=== PATIENT | female | born 1945 | race Caucasian/White ===

== ENCOUNTER 2017-01-12 13:51 | Inpatient (IN) | payer BC, OTHER ==
[~2017-01-12] VITALS: Ht 157.5 cm; Wt 41.0 kg
[~2017-01-12 13:51] MED LIST: ALBU1AER9 INH; CITA20TA9 PO; LBR25 PO; MULTTAB58 PO; OXGN; PRED-301 PO; PRED10TA PO; SYMIN160 INH; TIOTCAP INH; VTMD1000 PO; XRL15 PO
[2017-01-12 14:01] VITALS: Ht 157.5 cm; Wt 41.0 kg
[2017-01-12] MEDS ORDERED: SODIUM CHLORIDE 0.9% 1000ML 1,000 ML IV STA (14:18)
[2017-01-12 14:44] LABS: COMPLETE YES; EOS % 0.1 %; HEMATOCRIT 37.5 % (37-47); IG% 0.3 %; LYMPH % 4.1 %; LYMPH ABS # 0.45 K/uL (1.2-3.4); MEAN CELL VOLUME 97.7 fL (80-100); MEAN CORPUSCULAR HEMOGLOBIN 31.3 pg (25-34); NEUT % 92.5 %; PLATELET COUNT 238 K/uL (130-400); RED BLOOD COUNT 3.84 M/uL (4.2-5.4); WHITE BLOOD COUNT 10.92 K/uL (4.8-10.8)
[2017-01-12] MEDS ORDERED: VNTHFA/IN INH (14:49)
--- NOTE | 2017-01-12 14:49 | DIAGNOSTIC IMAGING REPORT ---
CHEST ONE VIEW PORTABLE HISTORY: 71 years-old Female EVALUATE GI BLEED acute GI bleed. COMPARISON: Chest radiograph 01/06/2017, chest CT 01/07/2017 TECHNIQUE: Portable upright AP view of the chest FINDINGS: Cardiac silhouette is within normal limits. There is mild rightward deviation of the heart and mediastinal structures secondary to severe left greater than right bullous emphysematous changes. Chronic interstitial opacities are again seen throughout the bilateral lungs, right greater than left. Lungs are hyperinflated. No pneumothorax or large pleural effusion. No lobar airspace consolidation to suggest pneumonia. The bones of the chest are grossly intact. IMPRESSION: 1. No acute cardiopulmonary process. 2. Severe bullous emphysematous disease with areas of chronic interstitial scarring redemonstrated. The above report was generated using voice recognition software. It may contain grammatical, syntax or spelling errors. Electronically signed by: Oleg Hahn M.D. 01/12/2017 2:48 PM Dictated Date/Time: 01/12/2017 2:45 PM
[2017-01-12 14:51] LABS: INR 1.1 (0.9-1.1); PARTIAL THROMBOPLASTIN RATIO 1.1
[2017-01-12] MEDS ORDERED: SPRIN/30 INH (14:51)
[2017-01-12 15:05] LABS: ALT/SGPT 45 U/L (12-78); BLOOD UREA NITROGEN 18 mg/dl (7-18); BUN/CREATININE RATIO 24.3 (10-20); CALCIUM 10.8 mg/dl (8.5-10.1); CARBON DIOXIDE 39 mmol/L (21-32); CHLORIDE 93 mmol/L (98-107); CREATININE 0.75 mg/dl (0.60-1.20); GLUCOSE 162 mg/dl (70-99); POTASSIUM 4.4 mmol/L (3.5-5.1); SODIUM 135 mmol/L (136-145)
[2017-01-12 15:10] LABS: ALKALINE PHOSPHATASE 98 U/L (45-117); AST/SGOT 23 U/L (15-37)
[2017-01-12] MEDS ORDERED: CHLORDIAZEPOXIDE 25 MG CAP PO ONE (16:00)
[2017-01-12 16:14] LABS: MANUAL MICROSCOPIC REQUIRED? YES; REVIEW REQ? NO; URINE APPEARANCE TURBID (CLEAR); URINE COLOR BROWN
[2017-01-12 16:15] LABS: SULFASALICYLIC ACID POS (NEG); URINE SPECIFIC GRAVITY 1.009 (1.000-1.030)
[2017-01-12 16:22] LABS: URINE RBC >30 /hpf (0-4); URINE WBC >30 /hpf (0-5)
[2017-01-12 16:30] LABS: URINE BACTERIA 3+ (NEG)
[2017-01-12] MEDS ORDERED: POLYETHYLENE (MIRALAX) 17 GM PACK PO PRN (18:00)
[2017-01-12] MEDS ORDERED: MAGNESIUM HYDROXIDE SUSP 30 ML UDC PO PRN (18:00)
[2017-01-12] MEDS ORDERED: ACETAMINOPHEN 325 MG TAB PO PRN (18:00)
[2017-01-12] MEDS ORDERED: ZOLPIDEM TARTRATE 5 MG TAB PO PRN ×2 (18:00)
[2017-01-12] MEDS ORDERED: ALBUTEROL HFA 8 GM INHALER INH PRN (18:00)
[2017-01-12] MEDS ORDERED: ALUMINUM/MAGNESIUM/SIMETH (MAALOX MAX) 30 ML UDC PO PRN (18:00)
[2017-01-12] MEDS ORDERED: ONDANSETRON INJ 2 MG/ML 2 ML VIAL IV PRN (18:00)
[2017-01-12 18:30] VITALS: O2SAT 97; BMI 16.5
--- NOTE | 2017-01-12 18:31 | EMERGENCY ROOM VISIT NOTE ---
History Report prepared by Noah: Del Ivey Under the Supervision of: Dr. Manolo Vernon D.O. 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 She says that she was here for 5 days last week for a COPD exacerbation and was discharged 2 days ago, and it was discovered that she had a blood clot in her lung while here. The patient was on IV heparin in the hospital, and now is on Xarelto. She notes that she has been urinating blood for the past few days. She denies any hematochezia or vaginal bleeding, but she says that it is hard for her to tell whether there was any blood in her stool but thinks it maybe dark but not sure. She states that she does not think that her stools have been black or tarry. The patient notes that her last bowel movement was yesterday. The patient adds that she is normally on 2 and a half liters of oxygen at home. She also denies any abdominal pain, nausea, or vomiting. Per the patient's daughter, the patient has chronic kidney issues. Source of History: patient, family Onset: 3 days ago Position: other (global - hematuria) Quality: other (was recently put on Xarelto) Timing: other (persistent) Associated Symptoms: No nausea, No vomiting, No abdominal pain, No melena, No hematochezia (but hard to tell for her) Note: Associated symptoms; Denies vaginal bleeding. Review of Systems See HPI for pertinent positives & negatives. A total of 10 systems reviewed and were otherwise negative. Past Medical & Surgical Medical Problems: (1) Anxiety (2) COPD (chronic obstructive pulmonary disease) (3) COPD exacerbation (4) COPD exacerbation (5) Depression (6) Emphysema (7) Hematuria (8) Kidney stones Surgical Problems: (1) H/O lithotripsy Family History Gallbladder disease Heart disease Hypertension Kidney disease Kidney stones Social History Smoking Status: Former Smoker Drug Use: none Marital Status: Housing Status: unknown Occupation Status: retired Current/Historical Medications Scheduled Budesonide/Formoterol Fumarate (Symbicort 160/4.5 Inhaler ), 2 PUFFS INH BID Chlordiazepoxide (Chlordiazepoxide HCl), 25 MG PO BID Cholecalciferol (Vitamin D3), 1,000 INTER.UNIT PO QAM Citalopram Hydrobromide (Celexa), 20 MG PO DAILY Home O2 Therapy (Oxygen), 2.5 LITERS NA CONTINOUS Multiple Vitamin (Multivitamin), 1 TAB PO DAILY Prednisone (Prednisone), 10 MG PO DAILY Prednisone (Prednisone), 5 MG PO DAILY Rivaroxaban (Xarelto), 15 MG PO BIDM Tiotropium [place] (Spiriva Handihaler), 1 PUFF INH DAILY Scheduled PRN Albuterol Hfa (Ventolin Hfa), 2 PUFFS INH Q6H PRN for SOB/Wheezing Allergies Coded Allergies: Sulfa Antibiotics (Verified Allergy, Unknown, hives, 01/12/17) Doxycycline (Verified Adverse Reaction, Unknown, n/v, 01/12/17) Escitalopram (Verified Adverse Reaction, Unknown, n/v, 01/12/17) Physical Exam Vital Signs Date Time Temp Pulse Resp B/P (MAP) Pulse Ox O2 Delivery O2 Flow Rate FiO2 01/12/17 17:51 102 20 116/76 93 Nasal Cannula 2.5 01/12/17 16:15 92 01/12/17 15:59 97 20 124/68 92 Nasal Cannula 2.0 01/12/17 15:59 92 Nasal Cannula 2.0 01/12/17 14:01 37.2 109 20 97/61 91 Nasal Cannula Physical Exam GENERAL: Chronically ill-appearing, disheveled, no acute distress. EYE EXAM: normal conjunctiva. OROPHARYNX: no exudate, no erythema, lips, buccal mucosa, and tongue normal and mucous membranes are moist NECK: supple, no nuchal rigidity, no adenopathy, non-tender LUNGS: Clear to auscultation. Normal chest wall mechanics HEART: no murmurs, S1 normal and S2 normal ABDOMEN: abdomen soft, non-tender, normo-active bowel sounds, no masses, no rebound or guarding. BACK: Back is symmetrical on inspection and there is no deformity, no midline tenderness, no CVA tenderness. RECTAL: External hemorrhoids. Positive faint heme-positive stool SKIN: no rashes and no bruising UPPER EXTREMITIES: upper extremities are grossly normal. LOWER EXTREMITIES: No pitting edema. NEURO EXAM: Normal sensorium, cranial nerves II-XII grossly intact, normal speech, no gross weakness of arms, no gross weakness of legs. Medical Decision & Procedures ER Provider Diagnostic Interpretation: X-ray results as stated below per my review and the radiologist's interpretation : CHEST ONE VIEW PORTABLE HISTORY: 71 years-old Female EVALUATE GI BLEED acute GI bleed. COMPARISON: Chest radiograph 01/06/2017, chest CT 01/07/2017 TECHNIQUE: Portable upright AP view of the chest FINDINGS: Cardiac silhouette is within normal limits. There is mild rightward deviation of the heart and mediastinal structures secondary to severe left greater than right bullous emphysematous changes. Chronic interstitial opacities are again seen throughout the bilateral lungs, right greater than left. Lungs are hyperinflated. No pneumothorax or large pleural effusion. No lobar airspace consolidation to suggest pneumonia. The bones of the chest are grossly intact. IMPRESSION: 1. No acute cardiopulmonary process. 2. Severe bullous emphysematous disease with areas of chronic interstitial scarring redemonstrated. The above report was generated using voice recognition software. It may contain grammatical, syntax or spelling errors. Electronically signed by: Oleg Hahn M.D. 01/12/2017 2:48 PM Dictated Date/Time: 01/12/2017 2:45 PM Laboratory Results 01/12/17 14:29 Red Blood Count 3.84, Mean Corpuscular Volume 97.7, Mean Corpuscular Hemoglobin 31.3, Mean Corpuscular Hemoglobin Concent 32.0, Mean Platelet Volume 11.0, Neutrophils (%) (Auto) 92.5, Lymphocytes (%) (Auto) 4.1, Monocytes (%) (Auto) 3.0, Eosinophils (%) (Auto) 0.1, Basophils (%) (Auto) 0.0, Neutrophils # (Auto) 10.10, Lymphocytes # (Auto) 0.45, Monocytes # (Auto) 0.33, Eosinophils # (Auto) 0.01, Basophils # (Auto) 0.00 01/12/17 14:29 Test 01/12/17 14:29 01/12/17 15:50 White Blood Count 10.92 K/uL (4.8-10.8) Red Blood Count 3.84 M/uL (4.2-5.4) Hemoglobin 12.0 g/dL (12.0-16.0) Hematocrit 37.5 % (37-47) Mean Corpuscular Volume 97.7 fL (80-100) Mean Corpuscular Hemoglobin 31.3 pg (25-34) Mean Corpuscular Hemoglobin Concent 32.0 g/dl (32-36) Platelet Count 238 K/uL (130-400) Mean Platelet Volume 11.0 fL (7.4-10.4) Neutrophils (%) (Auto) 92.5 % Lymphocytes (%) (Auto) 4.1 % Monocytes (%) (Auto) 3.0 % Eosinophils (%) (Auto) 0.1 % Basophils (%) (Auto) 0.0 % Neutrophils # (Auto) 10.10 K/uL (1.4-6.5) Lymphocytes # (Auto) 0.45 K/uL (1.2-3.4) Monocytes # (Auto) 0.33 K/uL (0.11-0.59) Eosinophils # (Auto) 0.01 K/uL (0-0.5) Basophils # (Auto) 0.00 K/uL (0-0.2) RDW Standard Deviation 43.3 fL (36.4-46.3) RDW Coefficient of Variation 12.1 % (11.5-14.5) Immature Granulocyte % (Auto) 0.3 % Immature Granulocyte # (Auto) 0.03 K/uL (0.00-0.02) Prothrombin Time 12.0 SECONDS (9.0-12.0) Prothromb Time International Ratio 1.1 (0.9-1.1) Activated Partial Thromboplast Time 28.7 SECONDS (21.0-31.0) Partial Thromboplastin Ratio 1.1 Anion Gap 3.0 mmol/L (3-11) Est Creatinine Clear Calc Drug Dose 43.2 ml/min Estimated GFR () 91.7 Estimated GFR (Non- 79.1 BUN/Creatinine Ratio 24.3 (10-20) Calcium Level 10.8 mg/dl (8.5-10.1) Total Bilirubin 0.4 mg/dl (0.2-1) Direct Bilirubin 0.1 mg/dl (0-0.2) Aspartate Amino Transf (AST/SGOT) 23 U/L (15-37) Alanine Aminotransferase (ALT/SGPT) 45 U/L (12-78) Alkaline Phosphatase 98 U/L (45-117) Troponin I < 0.015 ng/ml (0-0.045) Total Protein 7.0 gm/dl (6.4-8.2) Albumin 3.7 gm/dl (3.4-5.0) Lipase 103 U/L (73-393) Urine Color BROWN Urine Appearance TURBID (CLEAR) Urine pH (4.5-7.5) Urine Specific [place] 1.009 (1.000-1.030) Urine Protein (NEG) Urine Glucose (UA) (NEG) Urine Ketones (NEG) Urine Occult Blood (NEG) Urine Nitrite (NEG) Urine Bilirubin (NEG) Urine Urobilinogen (NEG) Urine Leukocyte Esterase (NEG) Urine RBC >30 /hpf (0-4) Urine WBC >30 /hpf (0-5) Urine Epithelial Cells 5-10 /lpf (0-5) Urine Bacteria 3+ (NEG) Laboratory results per my review. Medications Administered Medications (Trade) Dose Ordered Sig/[place] Route Start Time Stop Time Status Last Admin Dose Admin Sodium Chloride 1,000 ml @ 999 mls/hr Q1H1M STAT IV 01/12/17 14:18 01/12/17 15:18 DC 01/12/17 14:18 999 MLS/HR Chlordiazepoxide (Librium Cap) 25 mg NOW ONCE PO 01/12/17 16:00 01/12/17 16:01 DC 01/12/17 15:56 25 MG ECG Indication: other (hematuria) Rate (beats per minute): 104 Rhythm: sinus tachycardia Findings: no ectopy, other (normal axis) ED Course ED COURSE: Vital signs were reviewed and showed hypotensive and tachycardic vitals. The patients medical record was reviewed The above diagnostic studies were performed and reviewed. ED treatments and interventions as stated above. 1408: The patient was evaluated in room A9B. A complete history and physical examination was performed. 1418: Ordered NSS 1000 ml @ 999 mls/hr IV. 1420: Past medical records were reviewed, and the patient was admitted here on the for a COPD exacerbation and was discharged on the . She was diagnosed with acute on chronic respiratory failure secondary to right upper lobe PEs, and was having hematuria. They were having the patient follow-up for the hematuria. 1544: I reevaluated the patient and she is urinating. 1600: Ordered Librium Cap 25 mg PO. 1625: Upon reevaluation, the patient is resting. I discussed my findings with the patient and she understands and agrees with the treatment plan. Based on the patients age, coexisting illnesses, exam and lab findings the decision to treat as an inpatient was made. The patient remained stable while under my care. The patient will be evaluated for further management. 1630: I reviewed the patient's case with Dr. Garth JOSEPH vaccine key customer leader. He will evaluate the patient for further management. 1730: I reevaluated the patient and she had a bowel movement and thinks she may have "black stuff" coming from her vagina. 1754: I reevaluated the patient, and did a pelvic exam, which revealed normal external genitalia, normal vaginal mucosa, no active bleeding. Medical Decision Differential Diagnosis includes but is not limited to dehydration, stroke, anemia, hypoglycemia, hyponatremia, hypernatremia, urinary tract infection, pneumonia, bronchitis, sepsis, gastroenteritis, additional abdominal pathology, metabolic abnormalities and infections. Patient is is a 71-year-old female that presents to ER for hematuria. She is hypotensive and tachycardic initially upon arrival. She notes that she would have some dark stool but is not uncertain as there is some blood in the urinal. Rectal was faintly heme positive. She is on a Xa inhibitor. CBC is unremarkable. BMP all LFTs, bilirubin and lipase was unremarkable. Troponin negative. UA contaminated. INR was normal. Chest x-ray was unremarkable. Patient has not missed any doses of Xa inhibitor. He with her evaluation she notes she thinks she was having dark stuff coming from vagina. I did perform a pelvic and this was unremarkable. Based on her slight hypotension, tachycardia 10 a inhibitor and faintly heme positive stool she was admitted to internal medicine for further workup along with her persistent hematuria. Medication Reconcilliation Current Medication List: was personally reviewed by me Blood Pressure Screening Patient's blood pressure: Low blood pressure Consults Time Called: 162 Consulting Physician: Dr. Garth JOSEPH vaccine key customer leader Returned Call: 1630 I reviewed the patient's case with Dr. Garth JOSEPH vaccine key customer leader. He will evaluate the patient for further management. Impression Primary Impression: GI bleed Additional Impressions: Hematuria Anticoagulated Scribe Attestation The scribe's documentation has been prepared under my direction and personally reviewed by me in its entirety. I confirm that the note above accurately reflects all work, treatment, procedures, and medical decision making performed by me. Departure Information Dispostion Being Evaluated By Hospitalist Referrals Bessie Corbin M.D. (PCP) Patient Instructions My [facility] Problem Qualifiers Primary Impression: GI bleed GI bleed type/associated pathology: unspecified gastrointestinal hemorrhage type Qualified Codes: K92.2 - Gastrointestinal hemorrhage, unspecified Additional Impressions: Hematuria Hematuria type: unspecified type Qualified Codes: R31.9 - Hematuria, unspecified
--- NOTE | 2017-01-12 18:46 | History and Physical ---
History & Physical Date & Time of Service: Jan 12, 2017 at 17:45 Chief Complaint: Bleeding Heavily/Home Health Nurse Primary Care Physician: Bessie Corbin M.D. History of Present Illness Source: patient, family 71 year old female with PMH of COPD, depression, anxiety, and renal calculi presents to the Emergency Room with complaints of persistent hematuria that started 3 days ago. Patient was recently admitted 7 days ago for a COPD exacerbation, where she was found to have a PE. During that admission, she was started on IV heparin and Xarelto. She notes that she has been urinating blood for the past few days, and believes it started while she was still admitted last week. She denies any hematochezia or vaginal bleeding, but she says that it is hard for her to tell whether there was any blood in her stool. She states that she does not think that her stools have been black or tarry, citing the dark red bowl of hematuria. The patient notes that her last bowel movement was yesterday. The patient adds that she is normally on 2.5 L home O2. She denies any abdominal pain, nausea, or vomiting. Past Medical/Surgical History Medical Problems: (1) Anxiety Status: Chronic (2) COPD (chronic obstructive pulmonary disease) Status: Chronic (3) COPD exacerbation Status: Chronic (4) COPD exacerbation Status: Chronic (5) Depression Status: Chronic (6) Emphysema Status: Chronic (7) Kidney stones Status: Resolved Surgical Problems: (1) H/O lithotripsy Status: Resolved Family History Gallbladder disease Heart disease Hypertension Kidney disease Kidney stones Mother: Ovarian cancer Social History Smoking Status: Former Smoker Drug Use: none Marital Status: Housing status: lives alone Occupational Status: retired Immunizations History of Influenza Vaccine: Unknown History of Tetanus Vaccine?: Unknown History of Pneumococcal: Unknown History of Hepatitis B Vaccine: Unknown Allergies Coded Allergies: Sulfa Antibiotics (Verified Allergy, Unknown, hives, 01/12/17) Doxycycline (Verified Adverse Reaction, Unknown, n/v, 01/12/17) Escitalopram (Verified Adverse Reaction, Unknown, n/v, 01/12/17) Home Medications Scheduled Budesonide/Formoterol Fumarate (Symbicort 160/4.5 Inhaler ), 2 PUFFS INH BID Chlordiazepoxide (Chlordiazepoxide HCl), 25 MG PO BID Cholecalciferol (Vitamin D3), 1,000 INTER.UNIT PO QAM Citalopram Hydrobromide (Celexa), 20 MG PO DAILY Home O2 Therapy (Oxygen), 2.5 LITERS NA CONTINOUS Multiple Vitamin (Multivitamin), 1 TAB PO DAILY Prednisone (Prednisone), 10 MG PO DAILY Prednisone (Prednisone), 5 MG PO DAILY Rivaroxaban (Xarelto), 15 MG PO BIDM Tiotropium [place] (Spiriva Handihaler), 1 PUFF INH DAILY Scheduled PRN Albuterol Hfa (Ventolin Hfa), 2 PUFFS INH Q6H PRN for SOB/Wheezing Review of Systems Constitutional: + weakness, + fatigue, No fever, No chills, No sweats, No weight loss ENT: No unusual epistaxis, No sore throat, No trouble swallowing Respiratory: + shortness of breath, + dyspnea on exertion, + dyspnea at rest Cardiovascular: No chest pain, No PND, No edema, No claudication, No palpitations Abdomen: No pain, No nausea, No vomiting, No diarrhea, No constipation Musculoskeletal: No joint pain, No muscle pain Genitourinary - Female: + hematuria, No dysuria, No urinary frequency, No urinary urgency, No vaginal bleeding Psychiatric: + depression symptoms, + anhedonism, + anxiety Endocrine: + fatigue Integumentary: No bleeding Physical Exam Vital Signs Date Time Temp Pulse Resp B/P (MAP) Pulse Ox O2 Delivery O2 Flow Rate FiO2 01/12/17 16:15 92 01/12/17 15:59 97 20 124/68 92 Nasal Cannula 2.0 01/12/17 15:59 92 Nasal Cannula 2.0 01/12/17 14:01 37.2 109 20 97/61 91 Nasal Cannula General Appearance: WD/WN, no apparent distress Head: normocephalic, atraumatic Eyes: normal inspection, PERRL, EOMI ENT: hearing grossly normal Respiratory/Chest: chest non-tender, no respiratory distress, no accessory muscle use, + decreased breath sounds Cardiovascular: regular rate, rhythm, no edema, no murmur, + JVD Abdomen/GI: normal bowel sounds, non tender, soft, no organomegaly Back: no CVA tenderness Extremities/Musculoskelatal: normal capillary refill, no pedal edema Neurologic/Psych: surgical technology instructor II-XII nml as tested, alert, normal mood/affect, oriented x 3 Skin: normal color, warm/dry Diagnostics Laboratory Results Results Past 24 Hours Test 01/12/17 14:29 01/12/17 15:50 Range/Units White Blood Count 10.92 4.8-10.8 K/uL Red Blood Count 3.84 4.2-5.4 M/uL Hemoglobin 12.0 12.0-16.0 g/dL Hematocrit 37.5 37-47 % Mean Corpuscular Volume 97.7 80-100 fL Mean Corpuscular Hemoglobin 31.3 25-34 pg Mean Corpuscular Hemoglobin Concent 32.0 32-36 g/dl Platelet Count 238 130-400 K/uL Mean Platelet Volume 11.0 7.4-10.4 fL Neutrophils (%) (Auto) 92.5 % Lymphocytes (%) (Auto) 4.1 % Monocytes (%) (Auto) 3.0 % Eosinophils (%) (Auto) 0.1 % Basophils (%) (Auto) 0.0 % Neutrophils # (Auto) 10.10 1.4-6.5 K/uL Lymphocytes # (Auto) 0.45 1.2-3.4 K/uL Monocytes # (Auto) 0.33 0.11-0.59 K/uL Eosinophils # (Auto) 0.01 0-0.5 K/uL Basophils # (Auto) 0.00 0-0.2 K/uL RDW Standard Deviation 43.3 36.4-46.3 fL RDW Coefficient of Variation 12.1 11.5-14.5 % Immature Granulocyte % (Auto) 0.3 % Immature Granulocyte # (Auto) 0.03 0.00-0.02 K/uL Prothrombin Time 12.0 9.0-12.0 SECONDS Prothromb Time International Ratio 1.1 0.9-1.1 Activated Partial Thromboplast Time 28.7 21.0-31.0 SECONDS Partial Thromboplastin Ratio 1.1 Sodium Level 135 136-145 mmol/L Potassium Level 4.4 3.5-5.1 mmol/L Chloride Level 93 98-107 mmol/L Carbon Dioxide Level 39 21-32 mmol/L Anion Gap 3.0 3-11 mmol/L Blood Urea Nitrogen 18 7-18 mg/dl Creatinine 0.75 0.60-1.20 mg/dl Est Creatinine Clear Calc Drug Dose 43.2 ml/min Estimated GFR () 91.7 Estimated GFR (Non- 79.1 BUN/Creatinine Ratio 24.3 10-20 Random Glucose 162 70-99 mg/dl Calcium Level 10.8 8.5-10.1 mg/dl Total Bilirubin 0.4 0.2-1 mg/dl Direct Bilirubin 0.1 0-0.2 mg/dl Aspartate Amino Transf (AST/SGOT) 23 15-37 U/L Alanine Aminotransferase (ALT/SGPT) 45 12-78 U/L Alkaline Phosphatase 98 45-117 U/L Troponin I < 0.015 0-0.045 ng/ml Total Protein 7.0 6.4-8.2 gm/dl Albumin 3.7 3.4-5.0 gm/dl Lipase 103 73-393 U/L Urine Color BROWN Urine Appearance TURBID CLEAR Urine pH 4.5-7.5 Urine Specific [place] 1.009 1.000-1.030 Urine Protein NEG Urine Glucose (UA) NEG Urine Ketones NEG Urine Occult Blood NEG Urine Nitrite NEG Urine Bilirubin NEG Urine Urobilinogen NEG Urine Leukocyte Esterase NEG Urine RBC >30 0-4 /hpf Urine WBC >30 0-5 /hpf Urine Epithelial Cells 5-10 0-5 /lpf Urine Bacteria 3+ NEG Diagnostic Radiology CHEST ONE VIEW PORTABLE HISTORY: 71 years-old Female EVALUATE GI BLEED acute GI bleed. COMPARISON: Chest radiograph 01/06/2017, chest CT 01/07/2017 TECHNIQUE: Portable upright AP view of the chest FINDINGS: Cardiac silhouette is within normal limits. There is mild rightward deviation of the heart and mediastinal structures secondary to severe left greater than right bullous emphysematous changes. Chronic interstitial opacities are again seen throughout the bilateral lungs, right greater than left. Lungs are hyperinflated. No pneumothorax or large pleural effusion. No lobar airspace consolidation to suggest pneumonia. The bones of the chest are grossly intact. IMPRESSION: 1. No acute cardiopulmonary process. 2. Severe bullous emphysematous disease with areas of chronic interstitial scarring redemonstrated. EKG Sinus tachycardia Biatrial enlargement Abnormal ECG When compared with ECG of 06-JAN-2017 15:27, No significant change was found Confirmed by Howard Cason ([id number]) on 01/12/2017 5:21:17 PM Impression Assessment and Plan 71 yo female PMH sig sagrario COPD, admitted for hematuria after recently starting xarelto for PE on last admission. Hematuria - stop xarelto, CBC q12 starting in AM - Consider UTI in light of dirty urine - Obtain urine clean catch with culture - consider starting rocephin depending on results - consider uro consult tomorrow for ?cystoscopy COPD - Continue symbicort, Oxygen (2.5 L baseline), spiriva, albuterol (prn), prednisone taper (10 tomorrow) and home dose (5) Depression/anxiety - continue celexa - continue chlordiazepoxide DVT proph: SCD Dispo: med surg Code: Full code LAST VISIT, PT WAS DNR PER PHYSICIAN'S NOTE Resident Tracking Resident Involvement: Resident Care Provided Care Provided: Adult [facility] Medicine Assessment/Plan Resident Physician Supervision Note: I was present with Dr. Coulter during the history and exam. I discussed the case with the resident and agree with the findings and plan as documented in the note. Any exceptions or clarifications are listed here. 71 y/o female h/o COPD, VTE, depression, anxiety, nephrolithiasis presents c/o hematuria following AC w/ xarelto. Pt reports four days of general malaise following discharge from [facility] for VTE on xarelto w/ accompanying gross hematuria which was brown/turbid without dysuria, nausea or frequency/ hesitancy. Reports no lightheadedness, vision/hearing changes, CP/SOB. S1/S2 nl RRR no MCG. NT/ND abdomen w/ nl BS. Patient's hematuria is concerning for DOROTHY of xarelto but may have underlying cystitis v. bladder ca/structural abnormality jacy considering significant smoking hx. Would repeat UA if possible, likely to start rocephin overnight and consult urology in AM v. outpatient evaluation for underlying disease. May warrant inpatient evaluation 2/2 need for AC in the setting of VTE. Continue COPD management including prednisone taper to baseline 5mg dose and mood management as noted above.
[2017-01-12 19:27] VITALS: BP 110/69; PULSE 90; TEMP 36.7; O2SAT 96
[2017-01-12] MEDS: CHLORDIAZEPOXIDE 25 MG CAP PO SCH (19:52)
[2017-01-12] MEDS: BUDESONIDE/FORMOTEROL FUMARATE 160/4.5 60 PUFFS/INHALER INH SCH (20:13)
[2017-01-12 22:52] VITALS: BP 104/64; PULSE 102; TEMP 36.7; O2SAT 99
[2017-01-13 06:50] LABS: MANUAL MICROSCOPIC REQUIRED? YES; URINE APPEARANCE CLOUDY (CLEAR); URINE BILIRUBIN NEG (NEG); URINE COLOR BROWN; URINE NITRITE NEG (NEG); URINE PH 8.5 (4.5-7.5); URINE SPECIFIC GRAVITY 1.015 (1.000-1.030); UROBILINOGEN NEG (NEG)
[2017-01-13 06:51] LABS: REVIEW REQ? NO; SULFASALICYLIC ACID POS (NEG)
[2017-01-13 06:55] LABS: URINE RBC >30 /hpf (0-4); URINE WBC >30 /hpf (0-5)
[2017-01-13 06:56] LABS: URINE BACTERIA 3+ (NEG)
[2017-01-13 06:57] LABS: ZZUR CULT IF INDIC CLEAN CATCH YES
[2017-01-13 07:21] LABS: COMPLETE YES; EOS % 5.1 %; HEMATOCRIT 32.3 % (37-47); IG% 0.3 %; LYMPH % 30.2 %; LYMPH ABS # 2.26 K/uL (1.2-3.4); MEAN CELL VOLUME 96.4 fL (80-100); MEAN CORPUSCULAR HEMOGLOBIN 30.1 pg (25-34); MEAN CORPUSCULAR HGB CONC 31.3 g/dl (32-36); MEAN PLATELET VOLUME 10.7 fL (7.4-10.4); MONO % 8.4 %; PLATELET COUNT 212 K/uL (130-400); RED BLOOD COUNT 3.35 M/uL (4.2-5.4); WHITE BLOOD COUNT 7.49 K/uL (4.8-10.8)
[2017-01-13 07:28] VITALS: BP 96/65; PULSE 82; TEMP 36.7; O2SAT 96
[2017-01-13 08:01] LABS: BUN/CREATININE RATIO 22.1 (10-20); CALCIUM 9.7 mg/dl (8.5-10.1); CREATININE 0.59 mg/dl (0.60-1.20); MAGNESIUM 1.9 mg/dl (1.8-2.4); POTASSIUM 3.6 mmol/L (3.5-5.1)
[2017-01-13] MEDS: CITALOPRAM 20 MG TAB PO SCH (08:02)
[2017-01-13] MEDS: CHLORDIAZEPOXIDE 25 MG CAP PO SCH ×2 (08:02→18:26)
[2017-01-13] MEDS: BUDESONIDE/FORMOTEROL FUMARATE 160/4.5 60 PUFFS/INHALER INH SCH ×2 (08:02→20:23)
[2017-01-13] MEDS: TIOTROPIUM BROMIDE 5 PUFF/90 MCG INH INH SCH (08:03)
[2017-01-13] MEDS ORDERED: OPTIRAY 320 IV PRN (11:15)
--- NOTE | 2017-01-13 12:38 | Urology Consultation ---
History General Date of Service: Jan 13, 2017. Chief Complaint: Hematuria Primary Care Physician: Bessie Corbin M.D. Pt seen a urologist before?: Yes If yes, why?: Stones History of Present Illness Patient has developed Gross hematuria with mild dysuria and is admitted for multiple issues. Had recently found to have a PE. Patient is notably upset and angry and answered questions very limitedly which complicated gathering of HPI and ROS. Notes state Patient was placed on blood thinners which she denies taking. Having bright red and dark red with clots at time in urine with abdominal discomfort and overall ill feelings. Also having blood per rectum with dark tarry stools. Denies previous hematuria. Does have a history of stones which she says is very complicated and she is not happy about in general. Not sure when started but continuing to have blood in urine which has her very concerned and bothered. Imaging Images were done at: Ordered Laboratory Labs were reviewed and are within normal limits unless listed below. Labs are available in the chart and at [facility] Problem List Medical Problems: (1) Anticoagulated Status: Acute (2) GI bleed Status: Acute (3) Hypoxia Status: Acute Past History COPD, deep vein thrombosis, kidney stones, urinary tract infection, vascular disease Past Surgical History: ureteral stent Family History Gallbladder disease Heart disease Hypertension Kidney disease Kidney stones Social History Hx Tobacco Use In Past Year?: No Marital status: Housing status: lives alone Occupation status: retired Immunizations History of Influenza Vaccine: Unknown History of Tetanus Vaccine?: Unknown History of Pneumococcal: Unknown History of Hepatitis B Vaccine: Unknown Allergies Coded Allergies: Sulfa Antibiotics (Verified Allergy, Unknown, hives, 01/12/17) Doxycycline (Verified Adverse Reaction, Unknown, n/v, 01/12/17) Escitalopram (Verified Adverse Reaction, Unknown, n/v, 01/12/17) Medications Home Medications: Home Meds and Scripts Medications Dose Route/Sig Max Daily Dose Days Date Category Dose Instructions Spiriva Handihaler (Tiotropium [place]) 30 Puff/540 Mcg Aerp 1 Puff INH DAILY 01/12/17 Reported Ventolin Hfa (Albuterol) 200 Puffs/63899 Mcg Aers 2 Puffs INH Q6H PRN 01/12/17 Reported Vitamin D3 (Cholecalciferol) 1,000 Inter.unit Tab 1,000 Inter.unit PO QAM 30 01/10/17 Rx Prednisone 5 Mg Tab 5 Mg PO DAILY 30 01/10/17 Rx Resume on 01/14 Prednisone 10 Mg Tab 10 Mg PO DAILY 3 01/10/17 Rx 20 mg x1 day, 10 mg x2 days Xarelto (Rivaroxaban) 15 Mg Tab 15 Mg PO BIDM 20 01/10/17 Rx Chlordiazepoxide HCl (Chlordiazepoxide) 25 Mg Cap 25 Mg PO BID 11/25/15 Reported Symbicort 160/4.5 Inhaler (Budesonide/Formoterol Fumarate) Aero 2 Puffs INH BID 09/13/14 Reported Oxygen Gas 2.5 Liters NA CONTINOUS 09/13/14 Reported Multivitamin (Multiple Vitamin) 1 Tab Tab 1 Tab PO DAILY 12/15/13 Reported Celexa (Citalopram Hydrobromide) 20 Mg Tab 20 Mg PO DAILY 12/15/13 Reported Inpatient Medications: Current Inpatient Medications Medications (Trade) Dose Ordered Sig/Khalida Route Start Time Stop Time Status Last Admin Dose Admin Acetaminophen (Tylenol Tab) 650 mg Q4H PRN PO 01/12/17 18:00 02/11/17 17:59 Al Hydrox/Mg Hydrox/Simethicone (Maalox Max Susp) 15 ml Q4H PRN PO 01/12/17 18:00 02/11/17 17:59 Magnesium Hydroxide (Milk Of Magnesia Susp) 30 ml Q6H PRN PO 01/12/17 18:00 02/11/17 17:59 Polyethylene (Miralax Powder Packet) 17 gm DAILY PRN PO 01/12/17 18:00 02/11/17 17:59 Zolpidem Tartrate (Ambien Tab) 5 mg HSZ PRN PO 01/12/17 18:00 02/11/17 17:59 Ondansetron HCl (Zofran Inj) 4 mg Q6H PRN IV 01/12/17 18:00 02/11/17 17:59 Albuterol (Ventolin Hfa Inhaler) 2 puffs Q6H PRN INH 01/12/17 18:00 02/11/17 17:59 Budesonide/ Formoterol Fumarate (Symbicort 160/ 4.5 Inh) 2 puffs BID INH 01/12/17 20:00 02/11/17 20:59 01/13/17 08:02 2 PUFFS Chlordiazepoxide (Librium Cap) 25 mg BID PO 01/12/17 20:00 02/11/17 20:59 01/13/17 08:02 25 MG Citalopram Hydrobromide (celeXA TAB) 20 mg DAILY PO 01/13/17 08:00 02/12/17 08:59 01/13/17 08:02 20 MG Tiotropium [place] (Spiriva Handihaler Inhaler) 1 puff DAILY INH 01/13/17 08:00 02/12/17 08:59 01/13/17 08:03 1 PUFF Prednisone (PredniSONE TAB) 10 mg DAILY PO 01/13/17 08:00 01/14/17 08:01 01/13/17 08:02 10 MG Prednisone (PredniSONE TAB) 5 mg QAM PO 01/15/17 08:00 02/14/17 08:59 Ceftriaxone Sodium 1 gm/ Dextrose 50 ml @ 100 mls/hr Q24H IV 01/13/17 12:00 01/18/17 11:59 Ioversol (Optiray 320) 125 ml UD PRN IV 01/13/17 11:15 01/17/17 11:14 Review of Systems Review of Systems All Other Systems: Reviewed and Negative Additional Comments: Reviewed. All pertinent in HPI. Limited due to patient's status. 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 Gross Hematuria 2. Dysuria 3. Recent PE 4. Severe COPD 5. Blood per rectum CT and urine studies order. Will assess and see if signs of stone, obstruction, mass, or infection or any other potential causes. Patient will need cystoscopy at some point. Will await results and likely plan to have scope as outpatient. Blood thinners after PE may have exacerbated bleeding issues. Will monitor. No nelson at this time and continue voiding on own. Agree with primary team plan for supportive care. Follow up as outpatient.
--- NOTE | 2017-01-13 13:04 | DIAGNOSTIC IMAGING REPORT ---
ABD/PELVIS COMBO CLINICAL HISTORY: 71 years-old Female presenting with gross hematuria, history of stones. TECHNIQUE: Multidetector CT of the abdomen and pelvis was performed before and after the administration of intravenous contrast. IV contrast: 94 mL of Optiray 320. A dose lowering technique was used consistent with the principles of ALARA (as low as reasonably achievable). COMPARISON: 09/18/2014. CT DOSE (mGy.cm): The estimated cumulative dose is 376.72 mGycm. FINDINGS: [employer] Consult[employer] topogram: Interval enlargement of the right staghorn calculus. Lung hyperinflation. Lung bases: Emphysema and bronchial wall thickening. Multifocal subsegmental bronchial debris. Solid irregular 6 mm nodule in the medial basal right lower lobe (series 5 image 9), not included within the [id number] on prior exam. Few additional nodular opacities also noted in the medial basal right lower lobe. Normal heart size. Small pericardial effusion. No pleural effusion. Bochdalek hernias suspected, greater on the left. Liver: Normal morphology. Normal density. Small hypodensities indeterminate but likely hepatic cysts or hamartomas. Patent hepatic vasculature. Biliary: No intrahepatic or extrahepatic biliary ductal dilatation. Gallbladder contains gallstones. Pancreas: Normal. Spleen: Normal. Adrenal glands: Nodular thickening of the adrenal glands, unchanged. Kidneys and ureters: Extensive stone burden, increased bilaterally. Large staghorn calculus on the right. Chronic moderate dilatation of the left renal collecting system with normal caliber ureter, possibly indicating chronic ureteropelvic junction obstruction. Right renal collecting system nondilated. Small hypodensity in the left kidney likely cyst but too small to characterize. Otherwise normal renal parenchymal enhancement. Normal excretion from the kidneys bilaterally. Mild irregularity of the lumen of the right ureter in the mid and distal portions. Left ureter normal. Bladder: Allowing for incomplete opacification of the bladder, no focal bladder wall thickening evident. Distended bladder. Pelvic organs: Uterus and ovaries normal. Bowel: Diverticulosis of the sigmoid and descending colon. Mild stool burden. Normal appendix. No bowel obstruction. Bowel incompletely assessed secondary to the absence of oral contrast and paucity of intra-abdominal fat. Peritoneal cavity: No free fluid or intraperitoneal gas. Lymph nodes: No enlarged lymph nodes in the abdomen or pelvis. Vasculature: Atherosclerosis of the normal caliber abdominal aorta. IVC patent. Abdominal wall: Normal. Musculoskeletal: Degenerative changes of the spine. Retrolisthesis of L4 on L5. Osteopenia. IMPRESSION: 1. Suggestion of mild irregularity of the lumen of the right ureter in the mid to distal portions. Consider direct visualization as urothelial neoplasm cannot be excluded. 2. No renal mass. 3. Limited evaluation of bladder secondary to incomplete opacification. 4. Interval increase in extensive bilateral renal calculus burden. 5. Chronic dilatation of the left renal collecting system with normal caliber left ureter suggests UPJ obstruction. 6. Emphysema. 7. Solid irregular 6 mm nodule in the right lower lobe. Follow-up per Debora Society 2017 recommendations below. Accompanying additional smaller nodularity in the right lower lobe could alternatively suggest an infectious etiology. 8. Small pericardial effusion. 9. Osteopenia. Please refer to below summary of Fleischner Society 2017 recommendations for follow-up of incidental CT nodules (Idalia Peter et al. Guidelines for management of incidental pulmonary nodules detected on CT images: From the Fleischner Society 2017. Radiology 2017; 284: 228-243.) SOLID NODULES Single nodule; size < 6 mm * Low risk patients: No routine follow-up * High risk patients: Optional CT at 12 months Single nodule; size 6-8 mm * Low risk patients: CT at 6-12 months, then consider CT at 18-24 months * High risk patients: CT at 6-12 months, then at 18-24 months Single nodule; size > 8 mm * Either low or high risk patients: Considered CT at 3 months, PET/CT, or tissue sampling Multiple nodules; size < 6 mm * Low risk patients: No routine follow up * High risk patients: Optional CT at 12 months Multiple nodules; size 6-8 mm * Low risk patients: CT at 3-6 months, then consider CT at 18-24 months * High risk patients: CT at 3-6 months, then at 18-24 months Multiple nodules; size > 8 mm * Low risk patients: CT at 3-6 months, then consider at 18-24 months * High risk patients: CT at 3-6 months, then at 18-24 months Note: These guidelines apply to incidental nodules. These guidelines do not apply to patients younger than 35 years, immunocompromised patients, or patients with cancer. * Low risk patients: Minimal or absent history of smoking and/or other known risk factors * High risk patients: History of smoking, exposure to other carcinogens, emphysema, fibrosis, upper lobe location, family history of lung cancer, etc. * If a nodule up to 8 mm is partly solid or is ground glass, further follow-up is required after 24 months to exclude possible slow growing adenocarcinoma. SUBSOLID NODULES Single ground-glass nodule * Nodule size < 6 mm: No routine follow-up * Nodule size > or = 6 mm: CT at 6-12 months to confirm persistence, then CT every 2 years until 5 years Single part-solid nodule * Nodule size < 6 mm: No routine follow-up * Nodules size > or = 6 mm: CT at 3-6 months to confirm persistence. If unchanged and solid component remains < 6 mm, annual CT should be performed for 5 years Multiple nodules * Nodule size < 6 mm: CT at 3-6 months. If stable, consider CT at 2 and 4 years. * Nodules size > or = 6 mm: CT at 3-6 months. Subsequent management based on the most suspicious nodule(s) Electronically signed by: Emil Tovar M.D. 01/13/2017 1:02 PM Dictated Date/Time: 01/13/2017 12:50 PM
[2017-01-13] MEDS: CEFTRIAXONE SOD INJ 1000 MG in DEXTROSE 5% 50ML IV SCH (13:22)
--- NOTE | 2017-01-13 14:37 | Family Medicine Progress Note ---
Progress Note Date of Service Jan 13, 2017. Subjective Pt evaluation today including: conversation w/ patient, physical exam, chart review, lab review Pt reports continued hematuria today despite stopping Xeralto. Pt denies fever, N/V/D Constitutional: No fever, No chills, No sweats Respiratory: No cough, No sputum, No wheezing, No shortness of breath Cardiovascular: No chest pain, No palpitations Abdomen: + GI bleeding, No pain, No nausea, No vomiting Female : + dysuria, + hematuria Medications Current Inpatient Medications Medications (Trade) Dose Ordered Sig/Khalida Route Start Time Stop Time Status Last Admin Dose Admin Acetaminophen (Tylenol Tab) 650 mg Q4H PRN PO 01/12/17 18:00 02/11/17 17:59 Al Hydrox/Mg Hydrox/Simethicone (Maalox Max Susp) 15 ml Q4H PRN PO 01/12/17 18:00 02/11/17 17:59 Magnesium Hydroxide (Milk Of Magnesia Susp) 30 ml Q6H PRN PO 01/12/17 18:00 02/11/17 17:59 Polyethylene (Miralax Powder Packet) 17 gm DAILY PRN PO 01/12/17 18:00 02/11/17 17:59 Zolpidem Tartrate (Ambien Tab) 5 mg HSZ PRN PO 01/12/17 18:00 02/11/17 17:59 Ondansetron HCl (Zofran Inj) 4 mg Q6H PRN IV 01/12/17 18:00 02/11/17 17:59 Albuterol (Ventolin Hfa Inhaler) 2 puffs Q6H PRN INH 01/12/17 18:00 02/11/17 17:59 Budesonide/ Formoterol Fumarate (Symbicort 160/ 4.5 Inh) 2 puffs BID INH 01/12/17 20:00 02/11/17 20:59 01/13/17 08:02 2 PUFFS Chlordiazepoxide (Librium Cap) 25 mg BID PO 01/12/17 20:00 02/11/17 20:59 01/13/17 08:02 25 MG Citalopram Hydrobromide (celeXA TAB) 20 mg DAILY PO 01/13/17 08:00 02/12/17 08:59 01/13/17 08:02 20 MG Tiotropium Anton (Spiriva Handihaler Inhaler) 1 puff DAILY INH 01/13/17 08:00 02/12/17 08:59 01/13/17 08:03 1 PUFF Prednisone (PredniSONE TAB) 10 mg DAILY PO 01/13/17 08:00 01/14/17 08:01 01/13/17 08:02 10 MG Prednisone (PredniSONE TAB) 5 mg QAM PO 01/15/17 08:00 02/14/17 08:59 Ceftriaxone Sodium 1 gm/ Dextrose 50 ml @ 100 mls/hr Q24H IV 01/13/17 12:00 01/18/17 11:59 01/13/17 13:22 100 MLS/HR Ioversol (Optiray 320) 125 ml UD PRN IV 01/13/17 11:15 01/17/17 11:14 Enteral Nutritional Formula (Boost Plus Vanilla) 1 can TIDM PO 01/13/17 17:00 02/12/17 16:59 Objective Vital Signs Date Time Temp Pulse Resp B/P (MAP) Pulse Ox O2 Delivery O2 Flow Rate FiO2 01/13/17 08:00 Nasal Cannula 2.5 01/13/17 07:28 36.7 82 16 96/65 (75) 96 3.0 01/13/17 00:00 Nasal Cannula 2.5 01/12/17 22:52 36.7 102 20 104/64 (77) 99 2.5 01/12/17 20:00 Nasal Cannula 2.5 01/12/17 19:27 36.7 90 20 110/69 (83) 96 Nasal Cannula 2.5 01/12/17 18:31 89 20 108/66 97 Nasal Cannula 2.5 01/12/17 18:30 97 Nasal Cannula 2.5 01/12/17 17:51 102 20 116/76 93 Nasal Cannula 2.5 01/12/17 16:15 92 01/12/17 15:59 97 20 124/68 92 Nasal Cannula 2.0 01/12/17 15:59 92 Nasal Cannula 2.0 Physical Exam General Appearance: WD/WN, no apparent distress Neck: supple, no adenopathy, thyroid normal Respiratory/Chest: chest non-tender, lungs clear, normal breath sounds, no respiratory distress, no accessory muscle use Cardiovascular: regular rate, rhythm, no edema, no gallop, no JVD, no murmur Abdomen: normal bowel sounds, non tender, soft Neurologic/Psychiatric: alert, normal mood/affect, oriented x 3 Skin: warm/dry, + pallor Assessment and Plan 71 yo female PMH sig sagrario COPD, admitted for hematuria after recently starting xarelto for PE on last admission. Hematuria - holding xarelto, CBC q12 starting in AM -Urology consulted; - ordered CT; bilateral staghorn stones seen, dilated left kidney, no signs of obstruction - recommend outpatient ureteroscopy and PCNL -Pt started on IV Rocephin -Ny catheter GI bleed -Pt describes blood on the toilet paper, unsure if it is related to hematuria -Will f/u with [facility], consider GI consultation COPD - Continue Symbicort, Oxygen (2.5 L baseline), Spiriva, albuterol (prn), prednisone taper (10 tomorrow) and home dose (5) Depression/anxiety - continue Celexa - continue chlordiazepoxide DVT proph: SCD Dispo: med surg Code: Full code Reviewed: Pt Seen/Exam by Me History no new concerns overnight Constitutional: denies: fever Respiratory: negative: short of breath Cardiovascular: denies chest pain Gastrointestinal/Abdominal: negative: abdominal pain General Appearance: no apparent distress Respiratory: lungs clear, no respiratory distress Cardiovascular: regular rate, rhythm Gastrointestinal: normal bowel sounds, non tender, soft Neurologic/Psychiatric: alert, oriented x 3 Skin Characteristics: warm/dry Assessment/Plan Resident Physician Supervision Note: I independently interviewed and examined the patient and verified the carrasco history and physical, reviewed labs and image studies, discussed the case with the resident Dr. Parikh and agree with the findings and care plan.
[2017-01-13 15:30] VITALS: O2SAT 96
[2017-01-13 15:47] VITALS: BP 91/60; PULSE 85; TEMP 37.2; O2SAT 98
[2017-01-13 15:47] LABS: HEMATOCRIT 31.7 % (37-47); MEAN CELL VOLUME 96.6 fL (80-100); MEAN CORPUSCULAR HEMOGLOBIN 30.5 pg (25-34); MEAN CORPUSCULAR HGB CONC 31.5 g/dl (32-36); MEAN PLATELET VOLUME 10.2 fL (7.4-10.4); PLATELET COUNT 207 K/uL (130-400); RED BLOOD COUNT 3.28 M/uL (4.2-5.4); WHITE BLOOD COUNT 7.08 K/uL (4.8-10.8)
[2017-01-13 16:05] LABS: BUN/CREATININE RATIO 17.5 (10-20); CALCIUM 9.7 mg/dl (8.5-10.1); CREATININE 0.64 mg/dl (0.60-1.20); POTASSIUM 4.4 mmol/L (3.5-5.1)
[2017-01-13] MEDS: BOOST PLUS VANILLA PO SCH ×2 (17:00)
[2017-01-13 23:24] VITALS: BP 97/59; PULSE 88; TEMP 37.1; O2SAT 97
[2017-01-14 06:19] LABS: BASO % 0.1 %; BASO ABS # 0.01 K/uL (0-0.2); COMPLETE YES; EOS % 4.9 %; HEMATOCRIT 31.9 % (37-47); IG% 0.1 %; LYMPH % 30.6 %; LYMPH ABS # 2.25 K/uL (1.2-3.4); MEAN CELL VOLUME 95.2 fL (80-100); MEAN CORPUSCULAR HEMOGLOBIN 30.4 pg (25-34); MEAN PLATELET VOLUME 10.5 fL (7.4-10.4); MONO % 8.3 %; PLATELET COUNT 216 K/uL (130-400); RED BLOOD COUNT 3.35 M/uL (4.2-5.4); WHITE BLOOD COUNT 7.35 K/uL (4.8-10.8)
[2017-01-14 07:00] VITALS: BP 90/58; PULSE 78; TEMP 36.6; O2SAT 98
[2017-01-14 07:03] LABS: BUN/CREATININE RATIO 17.8 (10-20); CALCIUM 9.4 mg/dl (8.5-10.1); CREATININE 0.54 mg/dl (0.60-1.20); POTASSIUM 3.4 mmol/L (3.5-5.1)
[2017-01-14] MEDS ORDERED: CEFTRIAXONE SOD INJ 1,000 MG in DEXTROSE 5% 50ML 50 ML IV SCH (08:00)
[2017-01-14 08:23] VITALS: BP 102/63; PULSE 88
[2017-01-14] MEDS: TIOTROPIUM BROMIDE 5 PUFF/90 MCG INH INH SCH (08:23)
[2017-01-14] MEDS: CITALOPRAM 20 MG TAB PO SCH (08:24)
[2017-01-14] MEDS: BUDESONIDE/FORMOTEROL FUMARATE 160/4.5 60 PUFFS/INHALER INH SCH ×2 (08:24→20:36)
[2017-01-14] MEDS: CHLORDIAZEPOXIDE 25 MG CAP PO SCH ×2 (08:25→17:49)
[2017-01-14] MEDS: BOOST PLUS VANILLA PO SCH ×6 (08:27→17:00)
[2017-01-14] MEDS: CEFTRIAXONE SOD INJ 1000 MG in DEXTROSE 5% 50ML IV SCH (11:37)
--- NOTE | 2017-01-14 12:26 | Progress Note ---
Subjective Date of Service: Jan 14, 2017. Subjective Pt evaluation today including: conversation w/ patient, chart review, lab review Voiding: nelson catheter in place (patent, draining dark seng colored urine) 71 yo female admitted with gross hematuria after starting Xarelto for PE. Pt denies pain this morning. Hematuria has improved. Nelson draining seng colored urine. H&H stable. Problem List Medical Problems: (1) Anticoagulated Status: Acute (2) GI bleed Status: Acute (3) Hypoxia Status: Acute Review of Systems Constitutional: No fever, No chills Respiratory: No shortness of breath Cardiac: No chest pain Abdomen: No pain, No nausea, No vomiting Female : No hematuria Heme: No abnormal bleeding/bruising Objective Vital Signs Date Time Temp Pulse Resp B/P (MAP) Pulse Ox O2 Delivery O2 Flow Rate FiO2 01/14/17 08:23 88 102/63 (76) 01/14/17 08:00 Nasal Cannula 2.5 01/14/17 07:00 36.6 78 18 90/58 (69) 98 3.0 01/14/17 00:00 Nasal Cannula 2.5 01/13/17 23:24 37.1 88 20 97/59 (72) 97 3.0 01/13/17 15:47 37.2 85 18 91/60 (70) 98 Nasal Cannula 3.0 01/13/17 15:30 96 Nasal Cannula 2.5 Physical Exam General Appearance: no apparent distress Eyes: normal inspection ENT: hearing grossly normal Neck: no JVD Respiratory/Chest: no respiratory distress, no accessory muscle use, + pertinent finding (nasal cannula O2) Cardiovascular: no JVD Extremities: normal inspection Neurologic/Psychiatric: alert, normal mood/affect, oriented x 3 Skin: normal color Laboratory Results Last 24 Hours Test 01/13/17 15:35 01/13/17 15:36 01/14/17 05:48 Sodium Level 136 mmol/L 139 mmol/L Potassium Level 4.4 mmol/L 3.4 mmol/L Chloride Level 97 mmol/L 99 mmol/L Carbon Dioxide Level 34 mmol/L 35 mmol/L Anion Gap 5.0 mmol/L 5.0 mmol/L Blood Urea Nitrogen 11 mg/dl 10 mg/dl Creatinine 0.64 mg/dl 0.54 mg/dl Est Creatinine Clear Calc Drug Dose 50.7 ml/min 60.1 ml/min Estimated GFR () 102.6 108.5 Estimated GFR (Non- 88.5 93.6 BUN/Creatinine Ratio 17.5 17.8 Random Glucose 141 mg/dl 85 mg/dl Calcium Level 9.7 mg/dl 9.4 mg/dl White Blood Count 7.08 K/uL 7.35 K/uL Red Blood Count 3.28 M/uL 3.35 M/uL Hemoglobin 10.0 g/dL 10.2 g/dL Hematocrit 31.7 % 31.9 % Mean Corpuscular Volume 96.6 fL 95.2 fL Mean Corpuscular Hemoglobin 30.5 pg 30.4 pg Mean Corpuscular Hemoglobin Concent 31.5 g/dl 32.0 g/dl RDW Standard Deviation 43.0 fL 42.6 fL RDW Coefficient of Variation 12.3 % 12.2 % Platelet Count 207 K/uL 216 K/uL Mean Platelet Volume 10.2 fL 10.5 fL Neutrophils (%) (Auto) 56.0 % Lymphocytes (%) (Auto) 30.6 % Monocytes (%) (Auto) 8.3 % Eosinophils (%) (Auto) 4.9 % Basophils (%) (Auto) 0.1 % Neutrophils # (Auto) 4.11 K/uL Lymphocytes # (Auto) 2.25 K/uL Monocytes # (Auto) 0.61 K/uL Eosinophils # (Auto) 0.36 K/uL Basophils # (Auto) 0.01 K/uL Immature Granulocyte % (Auto) 0.1 % Immature Granulocyte # (Auto) 0.01 K/uL Assessment and Plan A/P: Bilateral staghorn calculi, left UPJ obstruction, gross hematuria AFVSS. Gross hematuria improved. CT scan reviewed with the pt this morning. She is noted to have large bilateral staghorn calculi with a chronic left UPJ obstruction and ? distal right ureteral lesion. She was previously referred to [facility] [place] [address] Castellon for possible PCNL, but the pt reports she was not cleared for surgery by anesthesia d/t her COPD. Unfortunately, I believe her large staghorn calculi are likely to continue to be an issue for her in the future with risk for bleeding, infection, and renal failure. Would consider transfer to [facility] for possible management while off of her anticoagulation if they are willing to accept. Would also recommend cysto with retrograde and possible URS for further evaluation of her ? right renal lesion. Perhaps she can be cleared for light sedation in order to perform these procedures. I have discussed this with Dr. Parikh who will discuss with Dr. Maradiaga. I have also discussed this with the pt' s daughter Wilma Archuleta at [phone] who prefers her mother be transferred to [facility] for management if at all possible. She would like to be kept updated on this matter. If unable to transfer to [facility] for management while inpatient, would plan for referral to their as an outpatient. Will continue to follow along with primary service.
[2017-01-14] MEDS ORDERED: NURSING DECISION MEDICATION ORDER SCH (13:30)
[2017-01-14 15:24] VITALS: BP 105/68; PULSE 91; TEMP 37.1; O2SAT 95
[2017-01-14 15:30] VITALS: O2SAT 95
--- NOTE | 2017-01-14 16:20 | Family Medicine Progress Note ---
Progress Note Date of Service Jan 14, 2017. Subjective Pt evaluation today including: conversation w/ patient, conversation w/ family , physical exam, chart review, lab review Constitutional: No fever, No chills, No sweats Respiratory: No cough, No sputum, No wheezing, No shortness of breath Cardiovascular: No chest pain, No edema, No palpitations Abdomen: No pain, No nausea, No vomiting, No diarrhea Female : + hematuria, No dysuria Medications Current Inpatient Medications Medications (Trade) Dose Ordered Sig/Khalida Route Start Time Stop Time Status Last Admin Dose Admin Acetaminophen (Tylenol Tab) 650 mg Q4H PRN PO 01/12/17 18:00 02/11/17 17:59 Al Hydrox/Mg Hydrox/Simethicone (Maalox Max Susp) 15 ml Q4H PRN PO 01/12/17 18:00 02/11/17 17:59 Magnesium Hydroxide (Milk Of Magnesia Susp) 30 ml Q6H PRN PO 01/12/17 18:00 02/11/17 17:59 Polyethylene (Miralax Powder Packet) 17 gm DAILY PRN PO 01/12/17 18:00 02/11/17 17:59 Zolpidem Tartrate (Ambien Tab) 5 mg HSZ PRN PO 01/12/17 18:00 02/11/17 17:59 Ondansetron HCl (Zofran Inj) 4 mg Q6H PRN IV 01/12/17 18:00 02/11/17 17:59 Albuterol (Ventolin Hfa Inhaler) 2 puffs Q6H PRN INH 01/12/17 18:00 02/11/17 17:59 Budesonide/ Formoterol Fumarate (Symbicort 160/ 4.5 Inh) 2 puffs BID INH 01/12/17 20:00 02/11/17 20:59 01/14/17 08:24 2 PUFFS Citalopram Hydrobromide (celeXA TAB) 20 mg DAILY PO 01/13/17 08:00 02/12/17 08:59 01/14/17 08:24 20 MG Tiotropium [place] (Spiriva Handihaler Inhaler) 1 puff DAILY INH 01/13/17 08:00 02/12/17 08:59 01/14/17 08:23 1 PUFF Prednisone (PredniSONE TAB) 5 mg QAM PO 01/15/17 08:00 02/14/17 08:59 Ceftriaxone Sodium 1 gm/ Dextrose 50 ml @ 100 mls/hr Q24H IV 01/13/17 12:00 01/18/17 11:59 01/14/17 11:37 100 MLS/HR Ioversol (Optiray 320) 125 ml UD PRN IV 01/13/17 11:15 01/17/17 11:14 Enteral Nutritional Formula (Boost Plus Vanilla) 1 can TIDM PO 01/13/17 17:00 02/12/17 16:59 01/14/17 11:37 1 CAN Chlordiazepoxide (Librium Cap) 25 mg BID@0900,1800 PO 01/14/17 18:00 02/13/17 17:59 Rivaroxaban (Xarelto Tab) 15 mg BIDM PO 01/14/17 17:00 02/13/17 16:59 Objective Vital Signs Date Time Temp Pulse Resp B/P (MAP) Pulse Ox O2 Delivery O2 Flow Rate FiO2 01/14/17 15:24 37.1 91 18 105/68 (80) 95 Nasal Cannula 2.5 01/14/17 08:23 88 102/63 (76) 01/14/17 08:00 Nasal Cannula 2.5 01/14/17 07:00 36.6 78 18 90/58 (69) 98 3.0 01/14/17 00:00 Nasal Cannula 2.5 01/13/17 23:24 37.1 88 20 97/59 (72) 97 3.0 Physical Exam General Appearance: WD/WN, no apparent distress Respiratory/Chest: chest non-tender, lungs clear, normal breath sounds, no respiratory distress, no accessory muscle use Cardiovascular: regular rate, rhythm, no edema, no gallop, no JVD Abdomen: normal bowel sounds, non tender, soft Neurologic/Psychiatric: alert, normal mood/affect, oriented x 3 Skin: normal color, no rash, + pallor Laboratory Results 01/14/17 05:48 Red Blood Count 3.35, Mean Corpuscular Volume 95.2, Mean Corpuscular Hemoglobin 30.4, Mean Corpuscular Hemoglobin Concent 32.0, Mean Platelet Volume 10.5, Neutrophils (%) (Auto) 56.0, Lymphocytes (%) (Auto) 30.6, Monocytes (%) (Auto) 8.3, Eosinophils (%) (Auto) 4.9, Basophils (%) (Auto) 0.1, Neutrophils # (Auto) 4.11, Lymphocytes # (Auto) 2.25, Monocytes # (Auto) 0.61, Eosinophils # (Auto) 0.36, Basophils # (Auto) 0.01 01/14/17 05:48 Test 01/14/17 05:48 White Blood Count 7.35 K/uL (4.8-10.8) Red Blood Count 3.35 M/uL (4.2-5.4) Hemoglobin 10.2 g/dL (12.0-16.0) Hematocrit 31.9 % (37-47) Mean Corpuscular Volume 95.2 fL (80-100) Mean Corpuscular Hemoglobin 30.4 pg (25-34) Mean Corpuscular Hemoglobin Concent 32.0 g/dl (32-36) Platelet Count 216 K/uL (130-400) Mean Platelet Volume 10.5 fL (7.4-10.4) Neutrophils (%) (Auto) 56.0 % Lymphocytes (%) (Auto) 30.6 % Monocytes (%) (Auto) 8.3 % Eosinophils (%) (Auto) 4.9 % Basophils (%) (Auto) 0.1 % Neutrophils # (Auto) 4.11 K/uL (1.4-6.5) Lymphocytes # (Auto) 2.25 K/uL (1.2-3.4) Monocytes # (Auto) 0.61 K/uL (0.11-0.59) Eosinophils # (Auto) 0.36 K/uL (0-0.5) Basophils # (Auto) 0.01 K/uL (0-0.2) RDW Standard Deviation 42.6 fL (36.4-46.3) RDW Coefficient of Variation 12.2 % (11.5-14.5) Immature Granulocyte % (Auto) 0.1 % Immature Granulocyte # (Auto) 0.01 K/uL (0.00-0.02) Anion Gap 5.0 mmol/L (3-11) Est Creatinine Clear Calc Drug Dose 60.1 ml/min Estimated GFR () 108.5 Estimated GFR (Non- 93.6 BUN/Creatinine Ratio 17.8 (10-20) Calcium Level 9.4 mg/dl (8.5-10.1) Assessment and Plan 71 yo female PMH sig sagrario COPD, admitted for hematuria after recently starting xarelto for PE on last admission. Hematuria - CT; bilateral staghorn stones seen, dilated left kidney, no signs of obstruction - Local urology recommended tertiary care transfer for surgical intervention - ( ureteroscopy and PCNL) to avoid hematuria since will need AC due to PE. Spoke to [place] urologist - Dr. Ayala - not a candidate for surgical procedure because of recent PE. Pt must be on anticoagulation therapy for 6 months before surgery - Urine clear now. - Restarting Xarelto, CBC q12 starting in AM, H/H stable - continue IV Rocephin (day2) -Ny catheter Suspected GI bleed -FOBT negative -Likely related to clots from hematuria COPD - Continue Symbicort, Oxygen (2.5 L baseline), Spiriva, albuterol (prn), prednisone taper (10 tomorrow) and home dose (5) Depression/anxiety - continue Celexa - continue chlordiazepoxide DVT proph: SCD Dispo: med surg Code: Full code Reviewed: Pt Seen/Exam by Me History no new concerns Constitutional: denies: fever Respiratory: negative: short of breath Cardiovascular: denies chest pain General Appearance: no apparent distress Respiratory: lungs clear, no respiratory distress Cardiovascular: regular rate, rhythm Gastrointestinal: normal bowel sounds, non tender, soft Neurologic/Psychiatric: alert, oriented x 3 Skin Characteristics: warm/dry Assessment/Plan Resident Physician Supervision Note: I independently interviewed and examined the patient and verified the carrasco history and physical, reviewed labs and image studies, discussed the case with the resident Dr. Parikh and agree with the findings and care plan.
[2017-01-14] MEDS: RIVAROXABAN TAB 15 MG TAB PO SCH (17:50)
[2017-01-14 23:53] VITALS: BP 103/61; PULSE 84; TEMP 36.6; O2SAT 95
[2017-01-15 06:19] LABS: BASO % 0.2 %; BASO ABS # 0.01 K/uL (0-0.2); COMPLETE YES; EOS % 4.8 %; IG% 0.2 %; LYMPH % 36.8 %; LYMPH ABS # 2.28 K/uL (1.2-3.4); MEAN CELL VOLUME 96.4 fL (80-100); MEAN CORPUSCULAR HEMOGLOBIN 30.1 pg (25-34); MEAN CORPUSCULAR HGB CONC 31.3 g/dl (32-36); MEAN PLATELET VOLUME 10.2 fL (7.4-10.4); MONO % 9.4 %; NEUT % 48.6 %; PLATELET COUNT 227 K/uL (130-400); RED BLOOD COUNT 3.32 M/uL (4.2-5.4); WHITE BLOOD COUNT 6.19 K/uL (4.8-10.8)
[2017-01-15 06:52] VITALS: BP 99/65; PULSE 74; TEMP 36.5; O2SAT 99
--- NOTE | 2017-01-15 06:54 | Family Medicine Progress Note ---
Progress Note Date of Service Jan 15, 2017. Subjective Pt evaluation today including: conversation w/ patient, physical exam, chart review, review of studies Pt reports continued hematuria following restarting Xeralto. Constitutional: No fever, No chills, No weight loss Respiratory: No cough, No sputum, No wheezing, No shortness of breath, No dyspnea on exertion Cardiovascular: No chest pain, No palpitations Abdomen: No pain, No nausea, No vomiting, No diarrhea Female : + hematuria, No dysuria, No urinary frequency Medications Current Inpatient Medications Medications (Trade) Dose Ordered Sig/Khalida Route Start Time Stop Time Status Last Admin Dose Admin Acetaminophen (Tylenol Tab) 650 mg Q4H PRN PO 01/12/17 18:00 02/11/17 17:59 Al Hydrox/Mg Hydrox/Simethicone (Maalox Max Susp) 15 ml Q4H PRN PO 01/12/17 18:00 02/11/17 17:59 Magnesium Hydroxide (Milk Of Magnesia Susp) 30 ml Q6H PRN PO 01/12/17 18:00 02/11/17 17:59 Polyethylene (Miralax Powder Packet) 17 gm DAILY PRN PO 01/12/17 18:00 02/11/17 17:59 Zolpidem Tartrate (Ambien Tab) 5 mg HSZ PRN PO 01/12/17 18:00 02/11/17 17:59 Ondansetron HCl (Zofran Inj) 4 mg Q6H PRN IV 01/12/17 18:00 02/11/17 17:59 Albuterol (Ventolin Hfa Inhaler) 2 puffs Q6H PRN INH 01/12/17 18:00 02/11/17 17:59 Budesonide/ Formoterol Fumarate (Symbicort 160/ 4.5 Inh) 2 puffs BID INH 01/12/17 20:00 02/11/17 20:59 01/14/17 20:36 2 PUFFS Citalopram Hydrobromide (celeXA TAB) 20 mg DAILY PO 01/13/17 08:00 02/12/17 08:59 01/14/17 08:24 20 MG Tiotropium [place] (Spiriva Handihaler Inhaler) 1 puff DAILY INH 01/13/17 08:00 02/12/17 08:59 01/14/17 08:23 1 PUFF Prednisone (PredniSONE TAB) 5 mg QAM PO 01/15/17 08:00 02/14/17 08:59 Ceftriaxone Sodium 1 gm/ Dextrose 50 ml @ 100 mls/hr Q24H IV 01/13/17 12:00 01/18/17 11:59 01/14/17 11:37 100 MLS/HR Ioversol (Optiray 320) 125 ml UD PRN IV 01/13/17 11:15 01/17/17 11:14 Enteral Nutritional Formula (Boost Plus Vanilla) 1 can TIDM PO 01/13/17 17:00 02/12/17 16:59 01/14/17 17:00 1 CAN Chlordiazepoxide (Librium Cap) 25 mg BID@0900,1800 PO 01/14/17 18:00 02/13/17 17:59 01/14/17 17:49 25 MG Rivaroxaban (Xarelto Tab) 15 mg BIDM PO 01/14/17 17:00 02/13/17 16:59 Future Hold 01/14/17 17:50 15 MG Objective Vital Signs Date Time Temp Pulse Resp B/P (MAP) Pulse Ox O2 Delivery O2 Flow Rate FiO2 01/15/17 00:00 Nasal Cannula 2.5 01/14/17 23:53 36.6 84 20 103/61 (75) 95 3.0 01/14/17 15:30 95 Room Air 2.5 01/14/17 15:24 37.1 91 18 105/68 (80) 95 Nasal Cannula 2.5 01/14/17 08:23 88 102/63 (76) 01/14/17 08:00 Nasal Cannula 2.5 01/14/17 07:00 36.6 78 18 90/58 (69) 98 3.0 Physical Exam General Appearance: no apparent distress Neck: supple, no adenopathy Respiratory/Chest: chest non-tender, lungs clear, normal breath sounds, no respiratory distress, no accessory muscle use Cardiovascular: regular rate, rhythm, no edema, no gallop, no JVD, no murmur Abdomen: normal bowel sounds, non tender, soft, no organomegaly, no pulsatile mass Neurologic/Psychiatric: alert, normal mood/affect, oriented x 3 Skin: normal color, warm/dry, no rash Laboratory Results 01/15/17 05:44 Red Blood Count 3.32, Mean Corpuscular Volume 96.4, Mean Corpuscular Hemoglobin 30.1, Mean Corpuscular Hemoglobin Concent 31.3, Mean Platelet Volume 10.2, Neutrophils (%) (Auto) 48.6, Lymphocytes (%) (Auto) 36.8, Monocytes (%) (Auto) 9.4, Eosinophils (%) (Auto) 4.8, Basophils (%) (Auto) 0.2, Neutrophils # (Auto) 3.01, Lymphocytes # (Auto) 2.28, Monocytes # (Auto) 0.58, Eosinophils # (Auto) 0.30, Basophils # (Auto) 0.01 Test 01/15/17 05:44 White Blood Count 6.19 K/uL (4.8-10.8) Red Blood Count 3.32 M/uL (4.2-5.4) Hemoglobin 10.0 g/dL (12.0-16.0) Hematocrit 32.0 % (37-47) Mean Corpuscular Volume 96.4 fL (80-100) Mean Corpuscular Hemoglobin 30.1 pg (25-34) Mean Corpuscular Hemoglobin Concent 31.3 g/dl (32-36) Platelet Count 227 K/uL (130-400) Mean Platelet Volume 10.2 fL (7.4-10.4) Neutrophils (%) (Auto) 48.6 % Lymphocytes (%) (Auto) 36.8 % Monocytes (%) (Auto) 9.4 % Eosinophils (%) (Auto) 4.8 % Basophils (%) (Auto) 0.2 % Neutrophils # (Auto) 3.01 K/uL (1.4-6.5) Lymphocytes # (Auto) 2.28 K/uL (1.2-3.4) Monocytes # (Auto) 0.58 K/uL (0.11-0.59) Eosinophils # (Auto) 0.30 K/uL (0-0.5) Basophils # (Auto) 0.01 K/uL (0-0.2) RDW Standard Deviation 43.1 fL (36.4-46.3) RDW Coefficient of Variation 12.3 % (11.5-14.5) Immature Granulocyte % (Auto) 0.2 % Immature Granulocyte # (Auto) 0.01 K/uL (0.00-0.02) Assessment and Plan 71 yo female PMH sig sagrario COPD, admitted for hematuria after recently starting xarelto for PE on last admission. Hematuria - CT; bilateral staghorn stones seen, dilated left kidney, no signs of obstruction - Local urology recommended tertiary care transfer for surgical intervention - ( ureteroscopy and PCNL) to avoid hematuria since will need AC due to PE. Spoke to [place] urologist - Dr. Ayala - not a candidate for surgical procedure because of recent PE. Pt must be on anticoagulation therapy for 6 months before surgery - Urine is pink today, will follow throughout the day - Restarted Xarelto, CBC q12 starting in AM, H/H stable - continue IV Rocephin (day3) -Ny catheter Suspected GI bleed -FOBT negative -Likely related to clots from hematuria COPD - Continue Symbicort, Oxygen (2.5 L baseline), Spiriva, albuterol (prn), prednisone taper (10 tomorrow) and home dose (5) Depression/anxiety - continue Celexa - continue chlordiazepoxide DVT proph: SCD Dispo: med surg Code: Full code Reviewed: Pt Seen/Exam by Me History restarted to have blood in urine denies urinary burning concerned about if the bleeding would get worse Constitutional: denies: fever Respiratory: negative: short of breath Cardiovascular: denies chest pain General Appearance: no apparent distress Respiratory: lungs clear, no respiratory distress Cardiovascular: regular rate, rhythm Neurologic/Psychiatric: alert, oriented x 3 Skin Characteristics: warm/dry Comments Ny catheter with blood in urine Assessment/Plan Resident Physician Supervision Note: I independently interviewed and examined the patient and verified the carrasco history and physical, reviewed labs and image studies, discussed the case with the resident Dr. Parikh and agree with the findings and care plan.
[2017-01-15 06:57] LABS: BUN/CREATININE RATIO 19.8 (10-20); CALCIUM 9.4 mg/dl (8.5-10.1); CREATININE 0.58 mg/dl (0.60-1.20); POTASSIUM 3.3 mmol/L (3.5-5.1)
[2017-01-15] MEDS: CITALOPRAM 20 MG TAB PO SCH (08:07)
[2017-01-15] MEDS: CHLORDIAZEPOXIDE 25 MG CAP PO SCH ×2 (08:07→18:44)
[2017-01-15] MEDS: BUDESONIDE/FORMOTEROL FUMARATE 160/4.5 60 PUFFS/INHALER INH SCH ×2 (08:08→20:27)
[2017-01-15] MEDS: TIOTROPIUM BROMIDE 5 PUFF/90 MCG INH INH SCH (08:08)
[2017-01-15] MEDS: BOOST PLUS VANILLA PO SCH ×6 (08:10→18:45)
[2017-01-15] MEDS ORDERED: POTASSIUM CHLORIDE 20 MEQ TABCR PO STA (08:37)
--- NOTE | 2017-01-15 10:39 | Progress Note ---
Subjective Date of Service: Jan 15, 2017. Subjective Pt evaluation today including: conversation w/ patient, chart review, lab review Voiding: nelson catheter in place (patent, draining merlot colored urine ) 71 yo female with bilateral staghorn calculi, gross hematuria, urinary retention , and chronic left UPJ obstruction. Unfortunately the pt could not be transferred to [place] as they do not recommend any surgical management until her PE has been treated with 6 months of anticoagulation. Xarelto restarted yesterday, and the pt has again developed gross hematuria. Merlot colored. H&H is stable at 10.0 and 32.0. Pt denies pain this morning. Problem List Medical Problems: (1) Anticoagulated Status: Acute (2) GI bleed Status: Acute (3) Hypoxia Status: Acute Review of Systems Constitutional: No fever, No chills Respiratory: No shortness of breath Cardiac: No chest pain Abdomen: No pain, No nausea, No vomiting Female : + hematuria, No dysuria Heme: + abnormal bleeding/bruising Objective Vital Signs Date Time Temp Pulse Resp B/P (MAP) Pulse Ox O2 Delivery O2 Flow Rate FiO2 01/15/17 08:45 Room Air 01/15/17 06:52 36.5 74 18 99/65 (76) 99 Nasal Cannula 2.5 01/15/17 00:00 Nasal Cannula 2.5 01/14/17 23:53 36.6 84 20 103/61 (75) 95 3.0 01/14/17 15:30 95 Room Air 2.5 01/14/17 15:24 37.1 91 18 105/68 (80) 95 Nasal Cannula 2.5 Physical Exam General Appearance: no apparent distress Eyes: normal inspection ENT: hearing grossly normal Neck: no JVD Respiratory/Chest: no respiratory distress, no accessory muscle use, + pertinent finding (nasal cannula O2 in place) Cardiovascular: no JVD Extremities: normal inspection Neurologic/Psychiatric: alert, normal mood/affect, oriented x 3 Skin: normal color Laboratory Results Last 24 Hours Test 01/15/17 05:44 White Blood Count 6.19 K/uL Red Blood Count 3.32 M/uL Hemoglobin 10.0 g/dL Hematocrit 32.0 % Mean Corpuscular Volume 96.4 fL Mean Corpuscular Hemoglobin 30.1 pg Mean Corpuscular Hemoglobin Concent 31.3 g/dl Platelet Count 227 K/uL Mean Platelet Volume 10.2 fL Neutrophils (%) (Auto) 48.6 % Lymphocytes (%) (Auto) 36.8 % Monocytes (%) (Auto) 9.4 % Eosinophils (%) (Auto) 4.8 % Basophils (%) (Auto) 0.2 % Neutrophils # (Auto) 3.01 K/uL Lymphocytes # (Auto) 2.28 K/uL Monocytes # (Auto) 0.58 K/uL Eosinophils # (Auto) 0.30 K/uL Basophils # (Auto) 0.01 K/uL RDW Standard Deviation 43.1 fL RDW Coefficient of Variation 12.3 % Immature Granulocyte % (Auto) 0.2 % Immature Granulocyte # (Auto) 0.01 K/uL Sodium Level 140 mmol/L Potassium Level 3.3 mmol/L Chloride Level 100 mmol/L Carbon Dioxide Level 36 mmol/L Anion Gap 4.0 mmol/L Blood Urea Nitrogen 11 mg/dl Creatinine 0.58 mg/dl Est Creatinine Clear Calc Drug Dose 55.9 ml/min Estimated GFR () 106.0 Estimated GFR (Non- 91.4 BUN/Creatinine Ratio 19.8 Random Glucose 82 mg/dl Calcium Level 9.4 mg/dl Assessment and Plan A/P: Bilateral staghorn calculi, left UPJ obstruction, gross hematuria, urinary retention AFVSS. Gross hematuria once again developing after restarting Xarelto. Will observe for now. Will order nelson irrigation qshift and PRN for now. Continue to monitor H&H. Supportive management with transfusions PRN. Will continue to follow along with primary service.
[2017-01-15] MEDS: CEFTRIAXONE SOD INJ 1000 MG in DEXTROSE 5% 50ML IV SCH (11:51)
[2017-01-15 14:57] VITALS: BP 95/60; PULSE 87; TEMP 36.9; O2SAT 93
--- NOTE | 2017-01-15 15:01 | Progress Note ---
Progress Note Date of Service Jan 15, 2017. Progress Note Went to check on patient in afternoon - her urine had cleared up and was not lara colored as it was this morning. She was very happy. Discussed care with her daughter as well. All questions answered. Discussed care with RN's changing shift - advised to continue flushing catheter per shift and to monitor for further bleeding. Donna Kidd MD PGY-3 [employer]
[2017-01-15] MEDS: RIVAROXABAN TAB 15 MG TAB PO SCH (18:44)
[2017-01-15 23:31] LABS: HEMATOCRIT 31.3 % (37-47)
[2017-01-15 23:54] VITALS: BP 98/62; PULSE 80; TEMP 36.6; O2SAT 93
[2017-01-16 07:04] VITALS: BP 95/63; PULSE 76; TEMP 36.6; O2SAT 93
--- NOTE | 2017-01-16 07:37 | Family Medicine Progress Note ---
Progress Note Date of Service Jan 16, 2017. Subjective Pt evaluation today including: conversation w/ patient, physical exam, chart review, lab review, review of studies Pt has no acute complaints today, but she does say that she is sad and lonely. Patient expressed interest in speaking with a outside medical sales representative. Constitutional: No fever, No chills, No sweats Respiratory: No cough, No sputum, No wheezing, No shortness of breath Cardiovascular: No chest pain, No edema, No palpitations Abdomen: No pain, No nausea, No vomiting Female : + hematuria, No dysuria, No urinary frequency Medications Current Inpatient Medications Medications (Trade) Dose Ordered Sig/Khalida Route Start Time Stop Time Status Last Admin Dose Admin Acetaminophen (Tylenol Tab) 650 mg Q4H PRN PO 01/12/17 18:00 02/11/17 17:59 Al Hydrox/Mg Hydrox/Simethicone (Maalox Max Susp) 15 ml Q4H PRN PO 01/12/17 18:00 02/11/17 17:59 Magnesium Hydroxide (Milk Of Magnesia Susp) 30 ml Q6H PRN PO 01/12/17 18:00 02/11/17 17:59 Polyethylene (Miralax Powder Packet) 17 gm DAILY PRN PO 01/12/17 18:00 02/11/17 17:59 Zolpidem Tartrate (Ambien Tab) 5 mg HSZ PRN PO 01/12/17 18:00 02/11/17 17:59 Ondansetron HCl (Zofran Inj) 4 mg Q6H PRN IV 01/12/17 18:00 02/11/17 17:59 Albuterol (Ventolin Hfa Inhaler) 2 puffs Q6H PRN INH 01/12/17 18:00 02/11/17 17:59 Budesonide/ Formoterol Fumarate (Symbicort 160/ 4.5 Inh) 2 puffs BID INH 01/12/17 20:00 02/11/17 20:59 01/16/17 07:55 2 PUFFS Citalopram Hydrobromide (celeXA TAB) 20 mg DAILY PO 01/13/17 08:00 02/12/17 08:59 01/16/17 07:55 20 MG Tiotropium [place] (Spiriva Handihaler Inhaler) 1 puff DAILY INH 01/13/17 08:00 02/12/17 08:59 01/16/17 07:55 1 PUFF Prednisone (PredniSONE TAB) 5 mg QAM PO 01/15/17 08:00 02/14/17 08:59 01/16/17 07:55 5 MG Ceftriaxone Sodium 1 gm/ Dextrose 50 ml @ 100 mls/hr Q24H IV 01/13/17 12:00 01/18/17 11:59 01/16/17 11:32 100 MLS/HR Ioversol (Optiray 320) 125 ml UD PRN IV 01/13/17 11:15 01/17/17 11:14 Enteral Nutritional Formula (Boost Plus Vanilla) 1 can TIDM PO 01/13/17 17:00 02/12/17 16:59 01/16/17 11:32 1 CAN Chlordiazepoxide (Librium Cap) 25 mg BID@0900,1800 PO 01/14/17 18:00 02/13/17 17:59 01/16/17 07:55 25 MG Rivaroxaban (Xarelto Tab) 15 mg BIDM PO 01/14/17 17:00 02/13/17 16:59 Future hold 01/16/17 07:55 15 MG Sodium Chloride ([place] Nasal [place]) 1 sprays PRN PRN NA 01/16/17 09:30 02/15/17 09:29 01/16/17 09:42 1 SPRAYS Objective Vital Signs Date Time Temp Pulse Resp B/P (MAP) Pulse Ox O2 Delivery O2 Flow Rate FiO2 01/16/17 08:30 Room Air 01/16/17 07:04 36.6 76 18 95/63 (74) 93 2.5 01/16/17 00:00 Nasal Cannula 2.5 01/15/17 23:54 36.6 80 18 98/62 (74) 93 2.5 01/15/17 16:53 Nasal Cannula 2.5 01/15/17 14:57 36.9 87 18 95/60 (72) 93 Nasal Cannula 2.5 Physical Exam General Appearance: WD/WN, no apparent distress Neck: supple, no adenopathy, thyroid normal Respiratory/Chest: chest non-tender, lungs clear, normal breath sounds, no respiratory distress, no accessory muscle use Cardiovascular: regular rate, rhythm, no edema, no gallop, no JVD, no murmur Neurologic/Psychiatric: alert, normal mood/affect, oriented x 3 Skin: normal color, warm/dry, no rash Laboratory Results 01/16/17 07:53 Red Blood Count 3.40, Mean Corpuscular Volume 95.6, Mean Corpuscular Hemoglobin 30.3, Mean Corpuscular Hemoglobin Concent 31.7, Mean Platelet Volume 9.9, Neutrophils (%) (Auto) 48.6, Lymphocytes (%) (Auto) 37.5, Monocytes (%) (Auto) 10.1, Eosinophils (%) (Auto) 3.4, Basophils (%) (Auto) 0.2, Neutrophils # (Auto ) 3.02, Lymphocytes # (Auto) 2.33, Monocytes # (Auto) 0.63, Eosinophils # (Auto ) 0.21, Basophils # (Auto) 0.01 01/16/17 07:53 Test 01/16/17 07:53 White Blood Count 6.21 K/uL (4.8-10.8) Red Blood Count 3.40 M/uL (4.2-5.4) Hemoglobin 10.3 g/dL (12.0-16.0) Hematocrit 32.5 % (37-47) Mean Corpuscular Volume 95.6 fL (80-100) Mean Corpuscular Hemoglobin 30.3 pg (25-34) Mean Corpuscular Hemoglobin Concent 31.7 g/dl (32-36) Platelet Count 231 K/uL (130-400) Mean Platelet Volume 9.9 fL (7.4-10.4) Neutrophils (%) (Auto) 48.6 % Lymphocytes (%) (Auto) 37.5 % Monocytes (%) (Auto) 10.1 % Eosinophils (%) (Auto) 3.4 % Basophils (%) (Auto) 0.2 % Neutrophils # (Auto) 3.02 K/uL (1.4-6.5) Lymphocytes # (Auto) 2.33 K/uL (1.2-3.4) Monocytes # (Auto) 0.63 K/uL (0.11-0.59) Eosinophils # (Auto) 0.21 K/uL (0-0.5) Basophils # (Auto) 0.01 K/uL (0-0.2) RDW Standard Deviation 42.6 fL (36.4-46.3) RDW Coefficient of Variation 12.3 % (11.5-14.5) Immature Granulocyte % (Auto) 0.2 % Immature Granulocyte # (Auto) 0.01 K/uL (0.00-0.02) Anion Gap 4.0 mmol/L (3-11) Est Creatinine Clear Calc Drug Dose 56.9 ml/min Estimated GFR () 106.6 Estimated GFR (Non- 92.0 BUN/Creatinine Ratio 25.3 (10-20) Calcium Level 9.8 mg/dl (8.5-10.1) Assessment and Plan 71 yo female PMH sig sagrario COPD, admitted for hematuria after recently starting xarelto for PE on last admission. Hematuria - CT; bilateral staghorn stones seen, dilated left kidney, no signs of obstruction - Local urology recommended tertiary care transfer for surgical intervention - ( ureteroscopy and PCNL) to avoid hematuria since will need AC due to PE. Spoke to [place] urologist - Dr. Ayala - not a candidate for surgical procedure because of recent PE. Pt must be on anticoagulation therapy for 6 months before surgery - Pt's Xeralto was restarted last night. Urine is pink today, will follow throughout the day - CBC q am, H/H stable - continue IV Rocephin (day 4) -Ny catheter Suspected GI bleed -FOBT negative -Likely related to clots from hematuria COPD - Continue Symbicort, Oxygen (2.5 L baseline), Spiriva, albuterol (prn), prednisone taper (10 tomorrow) and home dose (5) Depression/anxiety - Pastoral care consult - Contacted volunteers to check on her - continue Celexa - continue chlordiazepoxide DVT proph: SCD/xeralto Dispo: med surg Encourage Ambulation Reviewed: Pt Seen/Exam by Me History urine with blood no other concerns Constitutional: denies: fever Respiratory: negative: short of breath Cardiovascular: denies chest pain General Appearance: no apparent distress Respiratory: lungs clear, no respiratory distress Cardiovascular: regular rate, rhythm Neurologic/Psychiatric: alert, oriented x 3 Skin Characteristics: warm/dry Assessment/Plan Resident Physician Supervision Note: I independently interviewed and examined the patient and verified the carrasco history and physical, reviewed labs and image studies, discussed the case with the resident Dr. Parikh and agree with the findings and care plan.
[2017-01-16] MEDS: CITALOPRAM 20 MG TAB PO SCH (07:55)
[2017-01-16] MEDS: RIVAROXABAN TAB 15 MG TAB PO SCH ×2 (07:55→17:27)
[2017-01-16] MEDS: TIOTROPIUM BROMIDE 5 PUFF/90 MCG INH INH SCH (07:55)
[2017-01-16] MEDS: BUDESONIDE/FORMOTEROL FUMARATE 160/4.5 60 PUFFS/INHALER INH SCH ×2 (07:55→20:34)
[2017-01-16] MEDS: CHLORDIAZEPOXIDE 25 MG CAP PO SCH ×2 (07:55→17:28)
[2017-01-16] MEDS: BOOST PLUS VANILLA PO SCH ×6 (07:56→17:27)
[2017-01-16 08:05] LABS: BASO % 0.2 %; BASO ABS # 0.01 K/uL (0-0.2); COMPLETE YES; EOS % 3.4 %; HEMATOCRIT 32.5 % (37-47); IG% 0.2 %; LYMPH % 37.5 %; LYMPH ABS # 2.33 K/uL (1.2-3.4); MEAN CELL VOLUME 95.6 fL (80-100); MEAN CORPUSCULAR HEMOGLOBIN 30.3 pg (25-34); MEAN CORPUSCULAR HGB CONC 31.7 g/dl (32-36); MEAN PLATELET VOLUME 9.9 fL (7.4-10.4); MONO % 10.1 %; NEUT % 48.6 %; PLATELET COUNT 231 K/uL (130-400); WHITE BLOOD COUNT 6.21 K/uL (4.8-10.8)
[2017-01-16 08:31] LABS: BUN/CREATININE RATIO 25.3 (10-20); CALCIUM 9.8 mg/dl (8.5-10.1); CREATININE 0.57 mg/dl (0.60-1.20); POTASSIUM 3.7 mmol/L (3.5-5.1)
--- NOTE | 2017-01-16 09:03 | Progress Note ---
Subjective Date of Service: Jan 16, 2017. (Sonia Olmos CRNP) Subjective Pt evaluation today including: conversation w/ patient, chart review, lab review Voiding: nelson catheter in place (patent, drainging dark, lara colored urine without clot ) 71 yo female with UR, gross hematuria, bilateral staghorn calculi, and chronic UPJ obstruction. Nelson continues to drain bright lara colored urine without clot this morning despite nelson irrigation qshift. H&H stable. Pt denies pain. (Sonia Olmos CRNP) Problem List Medical Problems: (1) Anticoagulated Status: Acute (2) GI bleed Status: Acute (3) Hypoxia Status: Acute (Sonia Olmos CRNP) Review of Systems Constitutional: No fever, No chills Respiratory: No shortness of breath Cardiac: No chest pain Abdomen: No pain, No nausea, No vomiting Female : + hematuria Heme: + abnormal bleeding/bruising (Sonia Olmos CRNP) Objective Vital Signs Date Time Temp Pulse Resp B/P (MAP) Pulse Ox O2 Delivery O2 Flow Rate FiO2 01/16/17 07:04 36.6 76 18 95/63 (74) 93 2.5 01/16/17 00:00 Nasal Cannula 2.5 01/15/17 23:54 36.6 80 18 98/62 (74) 93 2.5 01/15/17 16:53 Nasal Cannula 2.5 01/15/17 14:57 36.9 87 18 95/60 (72) 93 Nasal Cannula 2.5 (Sonia Olmos CRNP) Physical Exam General Appearance: no apparent distress Eyes: normal inspection ENT: hearing grossly normal Neck: no JVD Respiratory/Chest: no respiratory distress, no accessory muscle use Cardiovascular: no JVD Extremities: normal inspection Neurologic/Psychiatric: alert, normal mood/affect, oriented x 3 Skin: normal color (Sonia Olmos CRNP) Laboratory Results Last 24 Hours Test 01/15/17 23:03 01/16/17 07:53 Hemoglobin 10.2 g/dL 10.3 g/dL Hematocrit 31.3 % 32.5 % White Blood Count 6.21 K/uL Red Blood Count 3.40 M/uL Mean Corpuscular Volume 95.6 fL Mean Corpuscular Hemoglobin 30.3 pg Mean Corpuscular Hemoglobin Concent 31.7 g/dl Platelet Count 231 K/uL Mean Platelet Volume 9.9 fL Neutrophils (%) (Auto) 48.6 % Lymphocytes (%) (Auto) 37.5 % Monocytes (%) (Auto) 10.1 % Eosinophils (%) (Auto) 3.4 % Basophils (%) (Auto) 0.2 % Neutrophils # (Auto) 3.02 K/uL Lymphocytes # (Auto) 2.33 K/uL Monocytes # (Auto) 0.63 K/uL Eosinophils # (Auto) 0.21 K/uL Basophils # (Auto) 0.01 K/uL RDW Standard Deviation 42.6 fL RDW Coefficient of Variation 12.3 % Immature Granulocyte % (Auto) 0.2 % Immature Granulocyte # (Auto) 0.01 K/uL Sodium Level 139 mmol/L Potassium Level 3.7 mmol/L Chloride Level 102 mmol/L Carbon Dioxide Level 34 mmol/L Anion Gap 4.0 mmol/L Blood Urea Nitrogen 15 mg/dl Creatinine 0.57 mg/dl Est Creatinine Clear Calc Drug Dose 56.9 ml/min Estimated GFR () 106.6 Estimated GFR (Non- 92.0 BUN/Creatinine Ratio 25.3 Random Glucose 89 mg/dl Calcium Level 9.8 mg/dl (Sonia Olmos CRNP) Assessment and Plan A/P: Bilateral staghorn calculi, left UPJ obstruction, gross hematuria, urinary retention AFVSS. UC&S negative. Gross hematuria after resuming Xarelto. Continue to observe. Continue nelson irrigation qshift. Uncertain CBI will be of any benefit of bleeding coming from the kidneys. Will discuss with Dr. Bailey. Continue to monitor H&H. Supportive management with transfusions PRN. Will continue to follow along with primary service. (Sonia Olmos CRNP) 1. GH 2. Staghorn Calculi 3. Retention 4. PE on anticoagulation. Note reviewed and independently reviewed and discussed with PAPER CUTTER. Unfortunately, patient's hematuria is most likely related to large bilateral staghorn stones, possibly infectious stones. Cystoscopy would provide little clinical benefit and may actually cause more harm than good due to infection or bleeding risk. Bedside scoping would be difficult due to hematuria and lack of visualization. Patient requiring anticoagulation due to recent PE. Also places patient at high risk for any surgical intervention, especially invasive stone management. Unsure of other options at this facility other than supportive care with hydration, antibiotics for possible infectious stones, and tight management of anticoagulation to provide treatment for PE while not causing significant bleeding issues. (Almas Bailey, D.O.)
[2017-01-16] MEDS ORDERED: NURSING DECISION MEDICATION ORDER SCH (09:30)
[2017-01-16] MEDS ORDERED: SODIUM CHLORIDE 0.65% NA SOLN 45 ML (OCEAN) PRN (09:30)
[2017-01-16] MEDS: CEFTRIAXONE SOD INJ 1000 MG in DEXTROSE 5% 50ML IV SCH (11:32)
[2017-01-16 14:49] VITALS: BP 96/56; PULSE 85; TEMP 36.6; O2SAT 99
[2017-01-17] VITALS: BP 99/64; PULSE 78; TEMP 36.6; O2SAT 99
[2017-01-17 07:13] VITALS: BP 104/67; PULSE 72; TEMP 36.6; O2SAT 100
[2017-01-17 07:50] LABS: BASO % 0.1 %; BASO ABS # 0.01 K/uL (0-0.2); COMPLETE YES; EOS % 3.6 %; HEMATOCRIT 32.1 % (37-47); IG% 0.1 %; LYMPH ABS # 2.48 K/uL (1.2-3.4); MEAN CELL VOLUME 96.7 fL (80-100); MEAN CORPUSCULAR HEMOGLOBIN 30.4 pg (25-34); MEAN CORPUSCULAR HGB CONC 31.5 g/dl (32-36); MEAN PLATELET VOLUME 9.7 fL (7.4-10.4); MONO % 6.3 %; NEUT % 53.9 %; PLATELET COUNT 225 K/uL (130-400); RED BLOOD COUNT 3.32 M/uL (4.2-5.4); WHITE BLOOD COUNT 6.88 K/uL (4.8-10.8)
[2017-01-17] MEDS: CHLORDIAZEPOXIDE 25 MG CAP PO SCH ×2 (08:10→17:35)
[2017-01-17] MEDS: RIVAROXABAN TAB 15 MG TAB PO SCH ×2 (08:10→17:35)
[2017-01-17] MEDS: BOOST PLUS VANILLA PO SCH ×6 (08:10→17:35)
[2017-01-17] MEDS: CITALOPRAM 20 MG TAB PO SCH (08:10)
[2017-01-17] MEDS: TIOTROPIUM BROMIDE 5 PUFF/90 MCG INH INH SCH (08:10)
[2017-01-17] MEDS: BUDESONIDE/FORMOTEROL FUMARATE 160/4.5 60 PUFFS/INHALER INH SCH ×2 (08:10→20:27)
[2017-01-17 08:17] LABS: BUN/CREATININE RATIO 21.8 (10-20); CALCIUM 9.8 mg/dl (8.5-10.1); CREATININE 0.63 mg/dl (0.60-1.20); POTASSIUM 3.9 mmol/L (3.5-5.1)
--- NOTE | 2017-01-17 09:53 | Progress Note ---
Subjective Date of Service: Jan 17, 2017. Subjective Pt evaluation today including: conversation w/ patient, chart review, lab review Voiding: nelson catheter in place (patent, draining dark red urine ) Pt continues to have gross hematuria this morning. Nelson draining dark red urine. Remains on Xarelto. H&H stable. Denies pain. Problem List Medical Problems: (1) Anticoagulated Status: Acute (2) GI bleed Status: Acute (3) Hypoxia Status: Acute Review of Systems Constitutional: No fever, No chills Respiratory: No shortness of breath Cardiac: No chest pain Abdomen: No pain, No nausea, No vomiting Female : + hematuria Heme: + abnormal bleeding/bruising Objective Vital Signs Date Time Temp Pulse Resp B/P (MAP) Pulse Ox O2 Delivery O2 Flow Rate FiO2 01/17/17 07:13 36.6 72 16 104/67 (79) 100 Nasal Cannula 2.5 01/17/17 00:00 36.6 78 18 99/64 (76) 99 2.0 01/17/17 00:00 99 Nasal Cannula 2.5 01/16/17 17:18 Nasal Cannula 2.5 01/16/17 14:49 36.6 85 16 96/56 (69) 99 Nasal Cannula 2.5 Physical Exam General Appearance: no apparent distress Eyes: normal inspection ENT: hearing grossly normal Neck: no JVD Respiratory/Chest: no respiratory distress, no accessory muscle use, + pertinent finding (nasal cannula O2) Cardiovascular: no JVD Extremities: normal inspection Neurologic/Psychiatric: alert, normal mood/affect, oriented x 3 Skin: normal color Laboratory Results Last 24 Hours Test 01/16/17 18:28 01/17/17 07:27 Hemoglobin 10.6 g/dL 10.1 g/dL Hematocrit 34.0 % 32.1 % White Blood Count 6.88 K/uL Red Blood Count 3.32 M/uL Mean Corpuscular Volume 96.7 fL Mean Corpuscular Hemoglobin 30.4 pg Mean Corpuscular Hemoglobin Concent 31.5 g/dl Platelet Count 225 K/uL Mean Platelet Volume 9.7 fL Neutrophils (%) (Auto) 53.9 % Lymphocytes (%) (Auto) 36.0 % Monocytes (%) (Auto) 6.3 % Eosinophils (%) (Auto) 3.6 % Basophils (%) (Auto) 0.1 % Neutrophils # (Auto) 3.70 K/uL Lymphocytes # (Auto) 2.48 K/uL Monocytes # (Auto) 0.43 K/uL Eosinophils # (Auto) 0.25 K/uL Basophils # (Auto) 0.01 K/uL RDW Standard Deviation 44.4 fL RDW Coefficient of Variation 12.6 % Immature Granulocyte % (Auto) 0.1 % Immature Granulocyte # (Auto) 0.01 K/uL Sodium Level 140 mmol/L Potassium Level 3.9 mmol/L Chloride Level 100 mmol/L Carbon Dioxide Level 35 mmol/L Anion Gap 5.0 mmol/L Blood Urea Nitrogen 14 mg/dl Creatinine 0.63 mg/dl Est Creatinine Clear Calc Drug Dose 51.5 ml/min Estimated GFR () 103.1 Estimated GFR (Non- 89.0 BUN/Creatinine Ratio 21.8 Random Glucose 84 mg/dl Calcium Level 9.8 mg/dl Assessment and Plan A/P: Bilateral staghorn calculi, left UPJ obstruction, gross hematuria, urinary retention AFVSS. UC&S negative. Can d/c abx. She has received 5 days of Rocephin. Hematuria persists. Unfortunately she is unlikely to benefit from CBI as bleeding is most likely coming form the kidneys rather than bladder. Bedside cysto of limited benefit as well as we could do anything to correct the bleeding at that time. Unfortunately will need to remain on anticoagulation for 6 months before [place] would consider intervening with a PCNL which is the best recommendation for management of bilateral staghorn calculi. Will plan to leave nelson catheter in place for a few more days. Possible TOV prior to d/c home vs early next week as an outpatient. Supportive management with transfusions PRN. Continue to observe H&H while inpatient. Will arrange for outpatient f/u with Dr. Bailey. Will continue to follow along with primary service.
[2017-01-17] MEDS: CEFTRIAXONE SOD INJ 1000 MG in DEXTROSE 5% 50ML IV SCH (11:52)
--- NOTE | 2017-01-17 14:02 | Family Medicine Progress Note ---
Progress Note Date of Service Jan 17, 2017. Subjective Pt evaluation today including: conversation w/ patient, physical exam, chart review, lab review Pt is doing well. Report sleeping well, but is concerned because hematuria worsened last night following dose of Xeralto. Constitutional: No fever, No chills, No sweats Respiratory: No cough, No sputum, No wheezing, No shortness of breath Cardiovascular: No chest pain, No edema, No palpitations Abdomen: No pain, No nausea, No vomiting, No diarrhea Medications Current Inpatient Medications Medications (Trade) Dose Ordered Sig/Khalida Route Start Time Stop Time Status Last Admin Dose Admin Acetaminophen (Tylenol Tab) 650 mg Q4H PRN PO 01/12/17 18:00 02/11/17 17:59 Al Hydrox/Mg Hydrox/Simethicone (Maalox Max Susp) 15 ml Q4H PRN PO 01/12/17 18:00 02/11/17 17:59 Magnesium Hydroxide (Milk Of Magnesia Susp) 30 ml Q6H PRN PO 01/12/17 18:00 02/11/17 17:59 Polyethylene (Miralax Powder Packet) 17 gm DAILY PRN PO 01/12/17 18:00 02/11/17 17:59 Zolpidem Tartrate (Ambien Tab) 5 mg HSZ PRN PO 01/12/17 18:00 02/11/17 17:59 Ondansetron HCl (Zofran Inj) 4 mg Q6H PRN IV 01/12/17 18:00 02/11/17 17:59 Albuterol (Ventolin Hfa Inhaler) 2 puffs Q6H PRN INH 01/12/17 18:00 02/11/17 17:59 Budesonide/ Formoterol Fumarate (Symbicort 160/ 4.5 Inh) 2 puffs BID INH 01/12/17 20:00 02/11/17 20:59 01/17/17 08:10 2 PUFFS Citalopram Hydrobromide (celeXA TAB) 20 mg DAILY PO 01/13/17 08:00 02/12/17 08:59 01/17/17 08:10 20 MG Tiotropium [place] (Spiriva Handihaler Inhaler) 1 puff DAILY INH 01/13/17 08:00 02/12/17 08:59 01/17/17 08:10 1 PUFF Prednisone (PredniSONE TAB) 5 mg QAM PO 01/15/17 08:00 02/14/17 08:59 01/17/17 08:10 5 MG Ceftriaxone Sodium 1 gm/ Dextrose 50 ml @ 100 mls/hr Q24H IV 01/13/17 12:00 01/18/17 11:59 01/17/17 11:52 100 MLS/HR Enteral Nutritional Formula (Boost Plus Vanilla) 1 can TIDM PO 01/13/17 17:00 02/12/17 16:59 01/17/17 11:52 1 CAN Chlordiazepoxide (Librium Cap) 25 mg BID@0900,1800 PO 01/14/17 18:00 02/13/17 17:59 01/17/17 08:10 25 MG Rivaroxaban (Xarelto Tab) 15 mg BIDM PO 01/14/17 17:00 02/13/17 16:59 Future hold 01/17/17 08:10 15 MG Sodium Chloride ([place] Nasal [place]) 1 sprays PRN PRN NA 01/16/17 09:30 02/15/17 09:29 01/16/17 09:42 1 SPRAYS Objective Vital Signs Date Time Temp Pulse Resp B/P (MAP) Pulse Ox O2 Delivery O2 Flow Rate FiO2 01/17/17 09:00 Nasal Cannula 2.5 01/17/17 07:13 36.6 72 16 104/67 (79) 100 Nasal Cannula 2.5 01/17/17 00:00 36.6 78 18 99/64 (76) 99 2.0 01/17/17 00:00 99 Nasal Cannula 2.5 01/16/17 17:18 Nasal Cannula 2.5 01/16/17 14:49 36.6 85 16 96/56 (69) 99 Nasal Cannula 2.5 Physical Exam General Appearance: WD/WN, no apparent distress Neck: supple, no adenopathy Respiratory/Chest: chest non-tender, lungs clear, normal breath sounds, no respiratory distress, no accessory muscle use Cardiovascular: regular rate, rhythm, no edema, no gallop, no JVD, no murmur Abdomen: normal bowel sounds, non tender, soft Neurologic/Psychiatric: alert, oriented x 3, + depressed affect Skin: normal color, warm/dry, no rash Laboratory Results 01/17/17 07:27 Red Blood Count 3.32, Mean Corpuscular Volume 96.7, Mean Corpuscular Hemoglobin 30.4, Mean Corpuscular Hemoglobin Concent 31.5, Mean Platelet Volume 9.7, Neutrophils (%) (Auto) 53.9, Lymphocytes (%) (Auto) 36.0, Monocytes (%) (Auto) 6.3, Eosinophils (%) (Auto) 3.6, Basophils (%) (Auto) 0.1, Neutrophils # (Auto) 3.70, Lymphocytes # (Auto) 2.48, Monocytes # (Auto) 0.43, Eosinophils # (Auto) 0.25, Basophils # (Auto) 0.01 01/17/17 07:27 Test 01/17/17 07:27 White Blood Count 6.88 K/uL (4.8-10.8) Red Blood Count 3.32 M/uL (4.2-5.4) Hemoglobin 10.1 g/dL (12.0-16.0) Hematocrit 32.1 % (37-47) Mean Corpuscular Volume 96.7 fL (80-100) Mean Corpuscular Hemoglobin 30.4 pg (25-34) Mean Corpuscular Hemoglobin Concent 31.5 g/dl (32-36) Platelet Count 225 K/uL (130-400) Mean Platelet Volume 9.7 fL (7.4-10.4) Neutrophils (%) (Auto) 53.9 % Lymphocytes (%) (Auto) 36.0 % Monocytes (%) (Auto) 6.3 % Eosinophils (%) (Auto) 3.6 % Basophils (%) (Auto) 0.1 % Neutrophils # (Auto) 3.70 K/uL (1.4-6.5) Lymphocytes # (Auto) 2.48 K/uL (1.2-3.4) Monocytes # (Auto) 0.43 K/uL (0.11-0.59) Eosinophils # (Auto) 0.25 K/uL (0-0.5) Basophils # (Auto) 0.01 K/uL (0-0.2) RDW Standard Deviation 44.4 fL (36.4-46.3) RDW Coefficient of Variation 12.6 % (11.5-14.5) Immature Granulocyte % (Auto) 0.1 % Immature Granulocyte # (Auto) 0.01 K/uL (0.00-0.02) Anion Gap 5.0 mmol/L (3-11) Est Creatinine Clear Calc Drug Dose 51.5 ml/min Estimated GFR () 103.1 Estimated GFR (Non- 89.0 BUN/Creatinine Ratio 21.8 (10-20) Calcium Level 9.8 mg/dl (8.5-10.1) Assessment and Plan 71 yo female PMH sig for COPD, admitted for hematuria after recently starting xarelto for PE on last admission. Hematuria - CT; bilateral staghorn stones seen, dilated left kidney, no signs of obstruction - Local urology recommended tertiary care transfer for surgical intervention - ( ureteroscopy and PCNL) to avoid hematuria since will need AC due to PE. Spoke to [place] urologist - Dr. Ayala - not a candidate for surgical procedure because of recent PE. Pt must be on anticoagulation therapy for 6 months before surgery - Pt's Xeralto was restarted. Urine has been pink yesterday, lara red this morning. H/H has been stable checking H/H q 12 hrs. - CBC q am, H/H stable - DCing Rocephin. Received 5 days, cultures positive for only local chikis. - Ny catheter Suspected GI bleed -FOBT negative -Likely related to clots from hematuria COPD - Continue Symbicort, Oxygen (2.5 L baseline), Spiriva, albuterol (prn), prednisone taper (10 tomorrow) and home dose (5) Depression/anxiety - Pastoral care consult - Contacted volunteers to check on her - continue Celexa - continue chlordiazepoxide - Pt stays in bed most of the day. Ordered PT/OT to access. DVT proph: SCD/xeralto Dispo: med surg Encourage Ambulation Reviewed: Pt Seen/Exam by Me History no new concerns continues to have blood in urine Constitutional: denies: fever Respiratory: negative: short of breath Cardiovascular: denies chest pain General Appearance: no apparent distress Respiratory: no respiratory distress, decreased breath sounds Cardiovascular: regular rate, rhythm Neurologic/Psychiatric: alert, oriented x 3 Skin Characteristics: warm/dry Assessment/Plan Resident Physician Supervision Note: I independently interviewed and examined the patient and verified the carrasco history and physical, reviewed labs and image studies, discussed the case with the resident Dr. Parikh and agree with the findings and care plan.
[2017-01-17 14:46] VITALS: BP 94/61; PULSE 79; TEMP 36.9; O2SAT 94
[2017-01-18 00:01] VITALS: BP 97/64; PULSE 78; TEMP 36.7; O2SAT 98
[2017-01-18 07:17] VITALS: BP 98/62; PULSE 70; TEMP 36.6; O2SAT 99
[2017-01-18 07:36] LABS: BASO % 0.3 %; BASO ABS # 0.02 K/uL (0-0.2); COMPLETE YES; EOS % 3.2 %; HEMATOCRIT 32.5 % (37-47); IG% 0.3 %; LYMPH % 35.7 %; LYMPH ABS # 2.49 K/uL (1.2-3.4); MEAN CELL VOLUME 96.7 fL (80-100); MEAN CORPUSCULAR HEMOGLOBIN 30.4 pg (25-34); MEAN CORPUSCULAR HGB CONC 31.4 g/dl (32-36); MONO % 5.4 %; NEUT % 55.1 %; PLATELET COUNT 230 K/uL (130-400); RED BLOOD COUNT 3.36 M/uL (4.2-5.4); WHITE BLOOD COUNT 6.98 K/uL (4.8-10.8)
[2017-01-18 08:05] LABS: BUN/CREATININE RATIO 24.8 (10-20); CALCIUM 9.5 mg/dl (8.5-10.1); CREATININE 0.6 mg/dl (0.60-1.20); POTASSIUM 3.6 mmol/L (3.5-5.1)
[2017-01-18] MEDS: RIVAROXABAN TAB 15 MG TAB PO SCH ×2 (08:54→16:43)
[2017-01-18] MEDS: TIOTROPIUM BROMIDE 5 PUFF/90 MCG INH INH SCH (08:54)
[2017-01-18] MEDS: CITALOPRAM 20 MG TAB PO SCH (08:54)
[2017-01-18] MEDS: BUDESONIDE/FORMOTEROL FUMARATE 160/4.5 60 PUFFS/INHALER INH SCH (08:55)
[2017-01-18] MEDS: BOOST PLUS VANILLA PO SCH ×4 (08:57→12:00)
[2017-01-18] MEDS: CHLORDIAZEPOXIDE 25 MG CAP PO SCH ×2 (08:58→16:43)
--- NOTE | 2017-01-18 10:25 | Family Medicine Progress Note ---
Progress Note Date of Service Jan 18, 2017. Subjective Pt evaluation today including: conversation w/ patient, physical exam, chart review, lab review Constitutional: No fever, No chills Cardiovascular: No chest pain, No edema, No palpitations Abdomen: No pain, No nausea, No vomiting, No diarrhea, No constipation Female : + hematuria, No dysuria, No urinary frequency Medications Current Inpatient Medications Medications (Trade) Dose Ordered Sig/Khalida Route Start Time Stop Time Status Last Admin Dose Admin Acetaminophen (Tylenol Tab) 650 mg Q4H PRN PO 01/12/17 18:00 02/11/17 17:59 Al Hydrox/Mg Hydrox/Simethicone (Maalox Max Susp) 15 ml Q4H PRN PO 01/12/17 18:00 02/11/17 17:59 Magnesium Hydroxide (Milk Of Magnesia Susp) 30 ml Q6H PRN PO 01/12/17 18:00 02/11/17 17:59 Polyethylene (Miralax Powder Packet) 17 gm DAILY PRN PO 01/12/17 18:00 02/11/17 17:59 Zolpidem Tartrate (Ambien Tab) 5 mg HSZ PRN PO 01/12/17 18:00 02/11/17 17:59 Ondansetron HCl (Zofran Inj) 4 mg Q6H PRN IV 01/12/17 18:00 02/11/17 17:59 Albuterol (Ventolin Hfa Inhaler) 2 puffs Q6H PRN INH 01/12/17 18:00 02/11/17 17:59 Budesonide/ Formoterol Fumarate (Symbicort 160/ 4.5 Inh) 2 puffs BID INH 01/12/17 20:00 02/11/17 20:59 01/18/17 08:55 2 PUFFS Citalopram Hydrobromide (celeXA TAB) 20 mg DAILY PO 01/13/17 08:00 02/12/17 08:59 01/18/17 08:54 20 MG Tiotropium [place] (Spiriva Handihaler Inhaler) 1 puff DAILY INH 01/13/17 08:00 02/12/17 08:59 01/18/17 08:54 1 PUFF Prednisone (PredniSONE TAB) 5 mg QAM PO 01/15/17 08:00 02/14/17 08:59 01/18/17 08:54 5 MG Ceftriaxone Sodium 1 gm/ Dextrose 50 ml @ 100 mls/hr Q24H IV 01/13/17 12:00 01/18/17 11:59 01/17/17 11:52 100 MLS/HR Enteral Nutritional Formula (Boost Plus Vanilla) 1 can TIDM PO 01/13/17 17:00 02/12/17 16:59 01/18/17 08:57 1 CAN Chlordiazepoxide (Librium Cap) 25 mg BID@0900,1800 PO 01/14/17 18:00 02/13/17 17:59 01/18/17 08:58 25 MG Rivaroxaban (Xarelto Tab) 15 mg BIDM PO 01/14/17 17:00 02/13/17 16:59 Future hold 01/18/17 08:54 15 MG Sodium Chloride ([place] Nasal [place]) 1 sprays PRN PRN NA 01/16/17 09:30 02/15/17 09:29 01/16/17 09:42 1 SPRAYS Objective Vital Signs Date Time Temp Pulse Resp B/P (MAP) Pulse Ox O2 Delivery O2 Flow Rate FiO2 01/18/17 07:51 Nasal Cannula 2.5 01/18/17 07:17 36.6 70 18 98/62 (74) 99 Nasal Cannula 2.5 01/18/17 00:26 Nasal Cannula 2.5 01/18/17 00:01 36.7 78 17 97/64 (75) 98 Nasal Cannula 3.0 01/17/17 20:30 Nasal Cannula 2.5 01/17/17 16:30 Nasal Cannula 2.5 01/17/17 14:46 36.9 79 18 94/61 (72) 94 Nasal Cannula 2.5 Physical Exam General Appearance: WD/WN, no apparent distress Respiratory/Chest: chest non-tender, lungs clear, normal breath sounds, no respiratory distress, no accessory muscle use Cardiovascular: regular rate, rhythm, no edema, no gallop, no JVD, no murmur Neurologic/Psychiatric: alert, oriented x 3, + depressed affect Skin: normal color, warm/dry, no rash Laboratory Results 01/18/17 06:58 Red Blood Count 3.36, Mean Corpuscular Volume 96.7, Mean Corpuscular Hemoglobin 30.4, Mean Corpuscular Hemoglobin Concent 31.4, Mean Platelet Volume 10.0, Neutrophils (%) (Auto) 55.1, Lymphocytes (%) (Auto) 35.7, Monocytes (%) (Auto) 5.4, Eosinophils (%) (Auto) 3.2, Basophils (%) (Auto) 0.3, Neutrophils # (Auto) 3.85, Lymphocytes # (Auto) 2.49, Monocytes # (Auto) 0.38, Eosinophils # (Auto) 0.22, Basophils # (Auto) 0.02 01/18/17 06:58 Test 01/18/17 06:58 White Blood Count 6.98 K/uL (4.8-10.8) Red Blood Count 3.36 M/uL (4.2-5.4) Hemoglobin 10.2 g/dL (12.0-16.0) Hematocrit 32.5 % (37-47) Mean Corpuscular Volume 96.7 fL (80-100) Mean Corpuscular Hemoglobin 30.4 pg (25-34) Mean Corpuscular Hemoglobin Concent 31.4 g/dl (32-36) Platelet Count 230 K/uL (130-400) Mean Platelet Volume 10.0 fL (7.4-10.4) Neutrophils (%) (Auto) 55.1 % Lymphocytes (%) (Auto) 35.7 % Monocytes (%) (Auto) 5.4 % Eosinophils (%) (Auto) 3.2 % Basophils (%) (Auto) 0.3 % Neutrophils # (Auto) 3.85 K/uL (1.4-6.5) Lymphocytes # (Auto) 2.49 K/uL (1.2-3.4) Monocytes # (Auto) 0.38 K/uL (0.11-0.59) Eosinophils # (Auto) 0.22 K/uL (0-0.5) Basophils # (Auto) 0.02 K/uL (0-0.2) RDW Standard Deviation 44.0 fL (36.4-46.3) RDW Coefficient of Variation 12.5 % (11.5-14.5) Immature Granulocyte % (Auto) 0.3 % Immature Granulocyte # (Auto) 0.02 K/uL (0.00-0.02) Anion Gap 3.0 mmol/L (3-11) Est Creatinine Clear Calc Drug Dose 54.0 ml/min Estimated GFR () 104.8 Estimated GFR (Non- 90.4 BUN/Creatinine Ratio 24.8 (10-20) Calcium Level 9.5 mg/dl (8.5-10.1) Assessment and Plan 71 yo female PMH sig for COPD, admitted for hematuria after recently starting xarelto for PE on last admission. Hematuria - CT; bilateral staghorn stones seen, dilated left kidney, no signs of obstruction - Local urology recommended tertiary care transfer for surgical intervention - ( ureteroscopy and PCNL) to avoid hematuria since will need AC due to PE. Spoke to [place] urologist - Dr. Ayala - not a candidate for surgical procedure because of recent PE. Pt must be on anticoagulation therapy for 6 months before surgery - Pt's Xeralto was restarted. Urine has been pink yesterday, lara red this morning. H/H has been stable checking H/H q 12 hrs. - CBC q am, H/H stable - DCing Rocephin. Received 5 days, cultures positive for only local chikis. - Ny catheter Suspected GI bleed -FOBT negative -Likely related to clots from hematuria COPD - Continue Symbicort, Oxygen (2.5 L baseline), Spiriva, albuterol (prn), prednisone taper (10 tomorrow) and home dose (5) Depression/anxiety - Pastoral care consult - Contacted volunteers to check on her - continue Celexa - continue chlordiazepoxide - Pt stays in bed most of the day. Ordered PT/OT to access. DVT proph: SCD/isaac Dispo: med surg Encourage Ambulation
--- NOTE | 2017-01-18 10:34 | Progress Note ---
Subjective Date of Service: Jan 18, 2017. Subjective Pt evaluation today including: conversation w/ patient, physical exam, chart review, lab review Voiding: nelson catheter in place Patient reports she is doing okay overall Hematuria persists but has decreased over the past several days She is very frustrated with a Nelson catheter She has numerous questions regarding the plan of care She denies any flank pain No subjective fevers or chills Breathing pattern seems to be close to baseline Problem List Medical Problems: (1) Anticoagulated Status: Acute (2) GI bleed Status: Acute (3) Hypoxia Status: Acute Review of Systems Constitutional: No see HPI, No fever, No chills, No sweats, No weight loss, No weakness, No fatigue, No problem reported Respiratory: + shortness of breath, + dyspnea on exertion, + dyspnea at rest Female : + hematuria Objective Vital Signs Date Time Temp Pulse Resp B/P (MAP) Pulse Ox O2 Delivery O2 Flow Rate FiO2 01/18/17 07:51 Nasal Cannula 2.5 01/18/17 07:17 36.6 70 18 98/62 (74) 99 Nasal Cannula 2.5 01/18/17 00:26 Nasal Cannula 2.5 01/18/17 00:01 36.7 78 17 97/64 (75) 98 Nasal Cannula 3.0 01/17/17 20:30 Nasal Cannula 2.5 01/17/17 16:30 Nasal Cannula 2.5 01/17/17 14:46 36.9 79 18 94/61 (72) 94 Nasal Cannula 2.5 Physical Exam General Appearance: WD/WN, no apparent distress Eyes: normal inspection ENT: hearing grossly normal Neck: no adenopathy Respiratory/Chest: + pertinent finding (nasal cannula O2 supplement) Cardiovascular: regular rate, rhythm Abdomen: non tender, soft, + pertinent finding (urine pink in the tubing- dark in the bag) Extremities: non-tender Neurologic/Psychiatric: alert, normal mood/affect, oriented x 3 Skin: warm/dry Lymphatic: no adenopathy Laboratory Results Last 24 Hours Test 01/18/17 06:58 White Blood Count 6.98 K/uL Red Blood Count 3.36 M/uL Hemoglobin 10.2 g/dL Hematocrit 32.5 % Mean Corpuscular Volume 96.7 fL Mean Corpuscular Hemoglobin 30.4 pg Mean Corpuscular Hemoglobin Concent 31.4 g/dl Platelet Count 230 K/uL Mean Platelet Volume 10.0 fL Neutrophils (%) (Auto) 55.1 % Lymphocytes (%) (Auto) 35.7 % Monocytes (%) (Auto) 5.4 % Eosinophils (%) (Auto) 3.2 % Basophils (%) (Auto) 0.3 % Neutrophils # (Auto) 3.85 K/uL Lymphocytes # (Auto) 2.49 K/uL Monocytes # (Auto) 0.38 K/uL Eosinophils # (Auto) 0.22 K/uL Basophils # (Auto) 0.02 K/uL RDW Standard Deviation 44.0 fL RDW Coefficient of Variation 12.5 % Immature Granulocyte % (Auto) 0.3 % Immature Granulocyte # (Auto) 0.02 K/uL Sodium Level 140 mmol/L Potassium Level 3.6 mmol/L Chloride Level 101 mmol/L Carbon Dioxide Level 36 mmol/L Anion Gap 3.0 mmol/L Blood Urea Nitrogen 15 mg/dl Creatinine 0.60 mg/dl Est Creatinine Clear Calc Drug Dose 54.0 ml/min Estimated GFR () 104.8 Estimated GFR (Non- 90.4 BUN/Creatinine Ratio 24.8 Random Glucose 89 mg/dl Calcium Level 9.5 mg/dl Assessment and Plan Bilateral renal stones; recent PE; COPD; hematuria Lengthy discussion today regarding her current status and plan of care I discussed the dilemma of assessing and treating her hematuria in the setting of anticoagulation I have stressed that patient's is paramount at present - because her PE likely represents her most high risk problem and in turn must be addressed first Once she has had improvement in her clotting instability with anticoagulation, we can revisit treatment of her stones (she has previously followed with a urologist in [place] - however she was hesitant to proceed with surgery secondary to her anesthesia risks) At a minimum, I would recommend cystoscopy as an outpatient - as her bleeding seemed to precede the PE and hospitalization and is important to rule out causes other than the stone for the hematuria She is most concerned about the catheter present I recommend a voiding trial now and will order such
--- NOTE | 2017-01-18 11:47 | Discharge Instructions ---
Discharge Instructions Date of Service Jan 18, 2017. Admission Reason for Admission: Hematuria Discharge Discharge Diagnosis / Problem: hematuria (blood in the urine) Discharge Goals Goal(s): Decrease discomfort, Improve disease control Activity Recommendations Activity Limitations: resume your previous activity . Instructions / Follow-Up Instructions / Follow-Up Ms. Wyatt, You came to the hospital with blood in your urine. There are a couple things that we think are causing the blood; 1. Chronic staghorn stones in your kidney and lesions of the ureter 2. Xeralto; the medicine you take to thin your blood after having a pulmonary embolism. We did a few things while you were in the hospital; 1. We treated a urinary infection with IV antibiotics 2. We consulted urology to determine the extent of the stones and possible treatments in the future 3. We watched you to make sure you were stable, not losing too much blood. In addition, we wanted to observe to see if the blood in your urine stopped What we found out... 1. You blood values have been stable while in the hospital, meaning you are not losing too much blood 2. We found out that you need to stay on the Xeralto for at least 6 months before urology will do a procedure to fix your kidney stones Plan moving forward... 1. We are discharging you with close follow up; follow up blood test on Friday with primary care doctor 2. Continue to take Xeralto 3. Follow appointment with urology on Friday 4. Stay well hydrated. If the blood become especially dark or you cannot urinate , please follow up soon. In addition, if you have any severe symptoms; chest pain, shortness of breath, weakness/dizziness please follow up sooner. Current Hospital Diet Patient's current hospital diet: AHA Diet (Heart Healthy) Discharge Diet Recommended Diet: Regular Diet Pending Studies Studies pending at discharge: no Medical Emergencies . Who to Call and When: Medical Emergencies: If at any time you feel your situation is an emergency, please call 911 immediately. . Non-Emergent Contact Non-Emergency issues call your: Primary Care Provider, Director News . . "Provider Documentation" section prepared by Eduardo Parikh. . VTE Core Measure Inpt VTE Proph given/why not?: Other Anticoagulation (Xeralto ), Teresa Hair
--- NOTE | 2017-01-18 13:34 | Discharge Summary ---
Discharge Summary Date of Service Jan 18, 2017. (Eduardo Parikh M.D.) Discharge Summary Admission Date: Jan 12, 2017 at 17:55 Discharge Date: Jan 18, 2017 Discharge Disposition: Home with services Principal Diagnosis: hematuria Immunizations: Have You Had Influenza Vaccine: Unknown History of Tetanus Vaccine?: Unknown History of Pneumococcal: Unknown History of Hepatitis B Vaccine: Unknown (Eduardo Parikh M.D.) Medication Reconciliation Continued Medications: Albuterol Hfa (Ventolin Hfa) 200 Puffs/96625 Mcg Aers 2 PUFFS INH Q6H PRN for SOB/Wheezing, #1 INHALER Budesonide/Formoterol Fumarate (Symbicort 160/4.5 Inhaler ) Aero 2 PUFFS INH BID, INHALER Chlordiazepoxide (Chlordiazepoxide HCl) 25 Mg Cap 25 MG PO BID Cholecalciferol (Vitamin D3) 1,000 Inter.unit Tab 1000 INTER.UNIT PO QAM for 30 Days, #30 TAB Citalopram Hydrobromide (Celexa) 20 Mg Tab 20 MG PO DAILY, TAB Home O2 Therapy (Oxygen) Gas 2.5 LITERS NA CONTINOUS Multiple Vitamin (Multivitamin) 1 Tab Tab 1 TAB PO DAILY, TAB Prednisone (Prednisone) 5 Mg Tab 5 MG PO DAILY for 30 Days, #30 TAB Resume on 01/14 Rivaroxaban (Xarelto) 15 Mg Tab 15 MG PO BIDM for 20 Days, #40 TAB Tiotropium [place] (Spiriva Handihaler) 30 Puff/540 Mcg Aerp 1 PUFF INH DAILY Discharge Exam Review of Systems: Constitutional: No fever, No chills, No sweats Respiratory: No cough, No sputum, No wheezing, No shortness of breath Abdomen: No pain, No nausea, No vomiting, No diarrhea Genitourinary - Female: + hematuria, No dysuria Physical Exam: General Appearance: WD/WN, no apparent distress Respiratory/Chest: chest non-tender, lungs clear, normal breath sounds, no respiratory distress, no accessory muscle use Cardiovascular: regular rate, rhythm, no edema, no gallop, no JVD, no murmur , normal peripheral pulses Abdomen / GI: normal bowel sounds, non tender, soft, no organomegaly Neurologic/Psychiatric: alert, normal reflexes, + depressed affect Skin: normal color, warm/dry, no rash (Eduardo Parikh M.D.) nelson d/giuliano in am. able to void. Review of Systems: Constitutional: No fever Respiratory: No shortness of breath Cardiovascular: No chest pain Abdomen: No pain Physical Exam: General Appearance: no apparent distress Respiratory/Chest: no respiratory distress, + decreased breath sounds Cardiovascular: regular rate, rhythm Abdomen / GI: soft Neurologic/Psychiatric: alert, oriented x 3 Skin: warm/dry (Cass Maradiaga M.D.) Hospital Course 71 yo female [address] to [facility] with hematuria on Xeralto. Pt had been started on Xeralto after being hospitalized a week prior for pulmonary embolism The patient's UA was positive for infection and she was started on IV Rocephin for [address] demonstrated staghorn stones and a left ureter lesion. Urology deferred cystoscopy at this time because of the bleeding. Urology recommended referral for PCNL of staghorn stones at [facility] recommends remaining on anticoagulation for 6 months before they would consider intervening. With this, Xeralto was restarted and the patient was observed. The hematuria improved, but the patient continued to have pink urine with clots. H/H remained stable throughout duration. Nelson catheter was removed on the day of discharge and the patients urine was observed. Clots were seen mixed in the urine. Post void bladder scans revealed slight retention. Pt instructed to follow up at the emergency room if she experiences discomfort and is unable to urinate. Pt also instructed to follow up if the bleeding significantly worsens. Patient has an appointment at [facility] with Dr. Miranda. Recommend f/u H/H. Patient also has an appointment with [facility] on Friday. Total Time Spent: Less than 30 minutes This includes examination of the patient, discharge planning, medication reconciliation, and communication with other providers. (Eduardo Parikh M.D.) Resident Physician Supervision Note: I independently interviewed and examined the patient and verified the carrasco history and physical, reviewed labs and image studies, discussed the case with the resident Dr. Parikh and agree with the findings and care plan. Total Time Spent: Greater than 30 minutes (40) (Cass Maradiaga M.D.) Discharge Instructions Please refer to the electronic Patient Visit Report (Discharge Instructions) for additional information. (Eduardo Parikh M.D.) Additional Copies To Zenia Miranda MD; Howard Villafana M.D.
[2017-01-18 14:29] VITALS: BP 117/72; PULSE 94; TEMP 36.9; O2SAT 94
[2017-01-18 16:00] VITALS: O2SAT 96
[2017-01-18 16:28] VITALS: BP 117/72; PULSE 94; TEMP 36.9; O2SAT 94
== END 2017-01-18 17:00 | disposition home health service (06) | DRG 694 ==
LOC: C.EDB 13:53 → C.MS4W 17:55 → ENRESERV 18:07
PROVIDERS: ADMIT Family Medicine; ATTEND Family Medicine
DX: N20.0 Calculus of kidney (principal); R31.0 Gross hematuria; R33.9 Retention of urine, unspecified; J44.9 Chronic obstructive pulmonary disease, unspecified; Z99.81 Dependence on supplemental oxygen; F32.9 Major depressive disorder, single episode, unspecified; F41.9 Anxiety disorder, unspecified; Z86.711 Personal history of pulmonary embolism; Z87.442 Personal history of urinary calculi; Z87.891 Personal history of nicotine dependence; Z79.01 Long term (current) use of anticoagulants; Z79.52 Long term (current) use of systemic steroids; Z79.899 Other long term (current) drug therapy; Z88.1 Allergy status to other antibiotic agents; Z88.2 Allergy status to sulfonamides; Z82.49 Family history of ischemic heart disease and other diseases of the circulatory system; Z84.1 Family history of disorders of kidney and ureter; Z80.41 Family history of malignant neoplasm of ovary

== ENCOUNTER → 2017-01-24 | Outpatient (CLI) | payer BC, OTHER ==
[~2017-01-24] MED LIST changes: -ALBU1AER9 INH; +AZIT250T PO; +HYDR-5688 PO; +IPRASOL4 INH; +LDDP5 TD; +LEVO1TAB35 PO; -PRED10TA PO; +PRED20TA2 PO; +RIVA1.5T PO; +RIVA1TAB4 PO; +SPRIN/30 INH; -TIOTCAP INH; +VNTHFA/IN INH
[2017-01-24 13:48] LABS: BASO % 0.2 %; BASO ABS # 0.02 K/uL (0-0.2); EOS % 0.5 %; EOS ABS # 0.04 K/uL (0-0.5); HEMATOCRIT 37.7 % (37-47); HEMOGLOBIN 11.8 g/dL (12.0-16.0); IG# 0.01 K/uL (0.00-0.02); LYMPH % 9.7 %; LYMPH ABS # 0.81 K/uL (1.2-3.4); MEAN CELL VOLUME 97.9 fL (80-100); MEAN CORPUSCULAR HEMOGLOBIN 30.6 pg (25-34); MEAN CORPUSCULAR HGB CONC 31.3 g/dl (32-36); MEAN PLATELET VOLUME 10.9 fL (7.4-10.4); MONO % 2.4 %; NEUT % 87.1 %; NEUT ABS # 7.28 K/uL (1.4-6.5); PLATELET COUNT 300 K/uL (130-400); RED CELL DISTRIBUTION WIDTH CV 12.7 % (11.5-14.5); RED CELL DISTRIBUTION WIDTH SD 45.4 fL (36.4-46.3); WHITE BLOOD COUNT 8.36 K/uL (4.8-10.8)
--- NOTE | 2017-02-03 13:51 | CODING QUERY NO DIAGNOSIS ---
Valid Physician Order Needed A valid physician order must be submitted in order to properly bill for the service(s) provided, including date of service(s), valid diagnosis, and physician signature. If these tests are done on a recurring basis the original physican order must be submitted in order to code and bill for the service(s) provided. Please fax us the original, signed physician order so that we may expedite billing to [phone] DOS 01/24/17 * CBC W/ AUTO DIFF Thank you [employer] Valid Physician Order Needed A valid physician order must be submitted in order to properly bill for the service(s) provided, including date of service(s), valid diagnosis, and physician signature. If these tests are done on a recurring basis the original physican order must be submitted in order to code and bill for the service(s) provided. Please fax us the original, signed physician order so that we may expedite billing to [phone] DOS XX/XX/XXXX * (Certified Professional Ergonomist insert test name) Thank you [employer]
== END | disposition home or self-care (01) ==
LOC: C.LABSPEC 14:52
PROVIDERS: ATTEND Family Medicine
DX: Z01.89 Encounter for other specified special examinations (principal)

== ENCOUNTER 2017-01-27 15:39 | Emergency (ER) | payer BC, OTHER ==
[~2017-01-27] VITALS: Ht 157.5 cm; Wt 43.4 kg
[~2017-01-27 15:39] MED LIST changes: -AZIT250T PO; -HYDR-5688 PO; -IPRASOL4 INH; -LDDP5 TD; -LEVO1TAB35 PO; -PRED20TA2 PO; -RIVA1.5T PO; -RIVA1TAB4 PO
[2017-01-27 15:52] VITALS: TEMP 36.7; Ht 157.5 cm; Wt 43.4 kg
[2017-01-27] MEDS ORDERED: TRAMADOL HCL 50 MG TAB PO STA (16:05)
[2017-01-27] MEDS ORDERED: ACETAMINOPHEN 325 MG TAB PO STA (16:05)
--- NOTE | 2017-01-27 16:11 | EMERGENCY ROOM VISIT NOTE ---
History Report prepared by Noah: Jen Avelar Under the Supervision of: Dr. Lucio Boyce M.D. First contact with patient: 15:52 Chief Complaint: RIB PAIN Stated Complaint: R RIB PAIN History of Present Illness The patient is a 71 year old white female with a past medical history of COPD and uses 2.5L of oxygen at all times who presents to the ED with a cc of constant right sided rib pain beginning this morning. The patient describes her pain as an ache and it worsens with deep breathing. She notes that she recently was diagnosed with a blood clot in the lung and kidney stones before she was put on Xarelto. Negative cough, recent travel, abdominal pain, leg pain, leg swelling. She notes that she still has her gallbladder. Source of History: patient Onset: this morning Position: other (right sided ribs) Quality: ache Timing: constant Associated Symptoms: No cough, No abdominal pain Review of Systems See HPI for pertinent positives and negatives. A total of ten systems were reviewed and were otherwise negative. Past Medical & Surgical Medical Problems: (1) Anxiety (2) COPD (chronic obstructive pulmonary disease) (3) COPD exacerbation (4) COPD exacerbation (5) Depression (6) Emphysema (7) Hematuria (8) Kidney stones Surgical Problems: (1) H/O lithotripsy Family History Gallbladder disease Heart disease Hypertension Kidney disease Kidney stones Social History Smoking Status: Never Smoker Drug Use: none Marital Status: Housing Status: unknown Occupation Status: retired Current/Historical Medications Scheduled Budesonide/Formoterol Fumarate (Symbicort 160/4.5 Inhaler ), 2 PUFFS INH BID Chlordiazepoxide (Chlordiazepoxide HCl), 25 MG PO DAILY Citalopram Hydrobromide (Celexa), 20 MG PO DAILY Home O2 Therapy (Oxygen), 2.5 LITERS NA CONTINOUS Multiple Vitamin (Multivitamin), 1 TAB PO DAILY Prednisone (Prednisone), 5 MG PO DAILY Rivaroxaban (Xarelto), 15 MG PO BID Tiotropium [place] (Spiriva Handihaler), 1 PUFF INH DAILY Scheduled PRN Albuterol Hfa (Ventolin Hfa), 2 PUFFS INH Q6H PRN for SOB/Wheezing Ipratropium-Albuterol (Duoneb), 3 ML INH Q4H PRN for SOB/Wheezing Allergies Coded Allergies: Sulfa Antibiotics (Verified Allergy, Unknown, hives, 01/12/17) Doxycycline (Verified Adverse Reaction, Unknown, n/v, 01/12/17) Escitalopram (Verified Adverse Reaction, Unknown, n/v, 01/12/17) Physical Exam Vital Signs Date Time Temp Pulse Resp B/P (MAP) Pulse Ox O2 Delivery O2 Flow Rate FiO2 01/27/17 20:03 86 18 96/71 98 Nasal Cannula 3.0 01/27/17 17:50 90 16 128/83 99 Nasal Cannula 2.0 01/27/17 17:37 86 01/27/17 17:12 98 Nasal Cannula 2.0 01/27/17 17:06 Nasal Cannula 2.0 01/27/17 15:52 36.7 93 16 128/83 98 Room Air Physical Exam GENERAL: Awake, alert, well-appearing, NAD HENT: Normocephalic, atraumatic. Nasal cannula in place. EYES: Normal conjunctiva. Sclera non-icteric. NECK: Supple. No nuchal rigidity. FROM. RESPIRATORY: CTAB, no rhonchi, wheezing, crackles CARDIAC: RRR, no MRG ABDOMEN: Soft, No RUQ pain, negative Angel's, BS+ MSK: No chest wall TTP, no LE edema. Reproducible right lower chest wall pain. NEURO: GCS 15, CN 2-12 intact, moves all 4s on command SKIN: No rash or jaundice noted. No ecchymosis, vesicles, or crepitus. Medical Decision & Procedures ER Provider Diagnostic Interpretation: Radiology results as stated below per my review and radiologist interpretation: CHEST ONE VIEW PORTABLE FINDINGS: The cardiomediastinal silhouette remains shifted to the right. Relative radiolucency and heterogeneity of the left lung parenchyma consistent with underlying emphysema. Hyperinflation. No new focal infiltrate. No large effusion or pneumothorax allowing for lucency of the left lung. Osseous structures normal. Density projects over the renal nanci bilaterally, consistent with renal calculi. IMPRESSION: 1. Severe emphysema unchanged. No new focal infiltrate. 2. Bilateral nephrolithiasis. Electronically signed by: Emil Tovar M.D. 01/27/2017 5:04 PM Dictated Date/Time: 01/27/2017 5:01 PM Laboratory Results 01/27/17 16:36 Red Blood Count 3.68, Mean Corpuscular Volume 97.6, Mean Corpuscular Hemoglobin 29.9, Mean Corpuscular Hemoglobin Concent 30.6, Mean Platelet Volume 10.3, Neutrophils (%) (Auto) 79.0, Lymphocytes (%) (Auto) 16.2, Monocytes (%) (Auto) 3.8, Eosinophils (%) (Auto) 0.3, Basophils (%) (Auto) 0.5, Neutrophils # (Auto) 5.04, Lymphocytes # (Auto) 1.03, Monocytes # (Auto) 0.24, Eosinophils # (Auto) 0.02, Basophils # (Auto) 0.03 01/27/17 16:36 Test 01/27/17 16:36 White Blood Count 6.37 K/uL (4.8-10.8) Red Blood Count 3.68 M/uL (4.2-5.4) Hemoglobin 11.0 g/dL (12.0-16.0) Hematocrit 35.9 % (37-47) Mean Corpuscular Volume 97.6 fL (80-100) Mean Corpuscular Hemoglobin 29.9 pg (25-34) Mean Corpuscular Hemoglobin Concent 30.6 g/dl (32-36) Platelet Count 238 K/uL (130-400) Mean Platelet Volume 10.3 fL (7.4-10.4) Neutrophils (%) (Auto) 79.0 % Lymphocytes (%) (Auto) 16.2 % Monocytes (%) (Auto) 3.8 % Eosinophils (%) (Auto) 0.3 % Basophils (%) (Auto) 0.5 % Neutrophils # (Auto) 5.04 K/uL (1.4-6.5) Lymphocytes # (Auto) 1.03 K/uL (1.2-3.4) Monocytes # (Auto) 0.24 K/uL (0.11-0.59) Eosinophils # (Auto) 0.02 K/uL (0-0.5) Basophils # (Auto) 0.03 K/uL (0-0.2) RDW Standard Deviation 44.7 fL (36.4-46.3) RDW Coefficient of Variation 12.5 % (11.5-14.5) Immature Granulocyte % (Auto) 0.2 % Immature Granulocyte # (Auto) 0.01 K/uL (0.00-0.02) Prothrombin Time 11.2 SECONDS (9.0-12.0) Prothromb Time International Ratio 1.0 (0.9-1.1) Activated Partial Thromboplast Time 27.4 SECONDS (21.0-31.0) Partial Thromboplastin Ratio 1.1 Anion Gap 2.0 mmol/L (3-11) Est Creatinine Clear Calc Drug Dose 45.2 ml/min Estimated GFR () 90.2 Estimated GFR (Non- 77.8 BUN/Creatinine Ratio 17.3 (10-20) Calcium Level 10.5 mg/dl (8.5-10.1) Total Bilirubin 0.3 mg/dl (0.2-1) Direct Bilirubin 0.1 mg/dl (0-0.2) Aspartate Amino Transf (AST/SGOT) 19 U/L (15-37) Alanine Aminotransferase (ALT/SGPT) 22 U/L (12-78) Alkaline Phosphatase 87 U/L (45-117) Troponin I < 0.015 ng/ml (0-0.045) Pro-B-Type Natriuretic Peptide 152 pg/ml (0-900) Total Protein 6.8 gm/dl (6.4-8.2) Albumin 3.5 gm/dl (3.4-5.0) Lipase 125 U/L (73-393) Laboratory results reviewed by me Medications Administered Medications (Trade) Dose Ordered Sig/Khalida Route Start Time Stop Time Status Last Admin Dose Admin Acetaminophen (Tylenol Tab) 650 mg NOW STAT PO 01/27/17 16:05 01/27/17 16:06 DC 01/27/17 16:05 650 MG Tramadol HCl (Ultram Tab) 25 mg NOW STAT PO 01/27/17 16:05 01/27/17 16:06 DC 01/27/17 16:05 25 MG Cyclobenzaprine HCl (Flexeril Tab) 5 mg ONE STAT PO 01/27/17 17:48 01/27/17 17:50 DC 01/27/17 17:48 5 MG ECG Indication: chest pain Rate (beats per minute): 93 Rhythm: normal sinus Findings: Q waves (Anterior), other (normal intervals, normal axis, no other STS or TWI) ED Course 1552: The patient was evaluated in room C2. A complete history and physical exam was performed. 1742: I reevaluated and updated the patient. 1852: I reevaluated the patient. 1928: I reevaluated the patient. Discussed results and discharge instructions: She verbalized understanding and agreement. The patient is ready for discharge. Medical Decision Differential diagnosis: Etiologies such as cardiac ischemia, aortic dissection, pulmonary embolism, pneumonia, pneumothorax, musculoskeletal, infections, pericarditis, myocarditis , esophageal rupture, gastrointestinal, as well as others were entertained. Patient was seen and evaluated the bedside 71-year-old with known COPD and hypertension who was diagnosed a month or 2 ago with a PE was started on Xarelto. Did have a recent hospital admission for hematuria. She was found to have bilateral staghorn calculi. There is no intervention until she completed Xarelto for 6 months. Patient does complain of some right-sided reproducible chest wall pain. She does state is mildly pleuritic. Patient is already on her Xarelto has been taking it regularly. Patient does require to have liters of oxygen at all times. Patient denies any hemoptysis lower extremity swelling prolonged car or plane travel. Patient's blood work is fairly unchanged from prior. Patient does have an elevated bicarbonate which is consistent with a chronic respiratory acidosis with compensation. Patient's chest x-ray did show emphysematous changes but this is not acute. Patient's EKG is fairly unchanged and patient does not have an elevated troponin. Patient's kidney function is normal. Patient does not have an elevated white count. Patient's blood counts are also in unchanged from priors. Patient's pain had not been much improved. Did discuss the possibility of shingles. Furthermore we discussed the possibility of a CT scan. She stated that she did not want to scan at this time. I did tell her that if she had an increasing oxygen requirement, more difficulty with breathing, or high heart rate she should return for repeat scan however given all this and that she does not have any tachypnea, increased O2 requirement, or tachycardia be less likely to be worsening blood clot. I did think about the possibility of a pulmonary infarct however given that the patient did not have any elevation in her white blood cell count, tachycardia, fever or hemoptysis hemoptysis this is less likely. Patient was amenable to this plan of care. These findings were discussed with the daughter. Patient was given strict follow-up, discharge, and return precautions. All questions were answered. Patient was deemed suitable for outpatient follow-up at this time. Patient agreed with the plan of care and was safely discharged home. Medication Reconcilliation Current Medication List: was personally reviewed by me Blood Pressure Screening Patient's blood pressure: Normal blood pressure Blood pressure disposition: Did not require urgent referral Impression Primary Impression: Chest wall pain Scribe Attestation The scribe's documentation has been prepared under my direction and personally reviewed by me in its entirety. I confirm that the note above accurately reflects all work, treatment, procedures, and medical decision making performed by me. Departure Information Dispostion Home / Self-Care Referrals Bessie Corbin M.D. (PCP) Patient Instructions ED Chest Wall Pain [facility], My [facility] Additional Instructions Please return to the emergency department if you have worsening or recurrent symptoms not amenable to at-home treatment. Please call for a follow-up appointment with her primary care physician. Please take your medications as prescribed. If you have other concerns and/or complaints please feel free to also call your primary care physician's office or return the ED for further evaluation, management, and treatment. You may take tylenol 650 mg every 6 hours as needed for pain. You may also try a warm compress to the area. Please return if you have an increasing oxygen requirement or breathing more rapidly or your heart rate is very high. Take your medications as prescribed. You have been examined and treated today on an emergency basis only. This is not a substitute for, or an effort to provide, complete comprehensive medical care. It is impossible to recognize and treat all injuries or illnesses in a single emergency department visit. It is therefore important that you follow up closely with [facility], your PCP, and/or your specialist(s). Call as soon as possible for an appointment. Thank you for your time and consideration. I look forward to speaking with you again soon. Please don't hesitate to call us if you have any questions.
[2017-01-27 16:48] LABS: BASO % 0.5 %; BASO ABS # 0.03 K/uL (0-0.2); COMPLETE YES; EOS % 0.3 %; HEMATOCRIT 35.9 % (37-47); IG% 0.2 %; LYMPH % 16.2 %; LYMPH ABS # 1.03 K/uL (1.2-3.4); MEAN CELL VOLUME 97.6 fL (80-100); MEAN CORPUSCULAR HEMOGLOBIN 29.9 pg (25-34); MEAN CORPUSCULAR HGB CONC 30.6 g/dl (32-36); MEAN PLATELET VOLUME 10.3 fL (7.4-10.4); MONO % 3.8 %; PLATELET COUNT 238 K/uL (130-400); RED BLOOD COUNT 3.68 M/uL (4.2-5.4); WHITE BLOOD COUNT 6.37 K/uL (4.8-10.8)
[2017-01-27 16:56] LABS: PARTIAL THROMBOPLASTIN RATIO 1.1; PROTHROMBIN TIME (PATIENT) 11.2 SECONDS (9.0-12.0)
[2017-01-27] MEDS ORDERED: IPRASOL4 INH (17:04)
--- NOTE | 2017-01-27 17:05 | DIAGNOSTIC IMAGING REPORT ---
CHEST ONE VIEW PORTABLE CLINICAL HISTORY: 71 years-old Female presenting with CHEST PAIN. TECHNIQUE: Portable upright AP view of the chest was obtained. COMPARISON: 01/12/2017. FINDINGS: The cardiomediastinal silhouette remains shifted to the right. Relative radiolucency and heterogeneity of the left lung parenchyma consistent with underlying emphysema. Hyperinflation. No new focal infiltrate. No large effusion or pneumothorax allowing for lucency of the left lung. Osseous structures normal. Density projects over the renal nanci bilaterally, consistent with renal calculi. IMPRESSION: 1. Severe emphysema unchanged. No new focal infiltrate. 2. Bilateral nephrolithiasis. Electronically signed by: Emil Tovar M.D. 01/27/2017 5:04 PM Dictated Date/Time: 01/27/2017 5:01 PM
[2017-01-27] MEDS ORDERED: PRED-301 PO (17:06)
[2017-01-27] MEDS ORDERED: RIVA1.5T PO (17:08)
[2017-01-27 17:12] VITALS: O2SAT 98
[2017-01-27 17:15] LABS: ALT/SGPT 22 U/L (12-78); BLOOD UREA NITROGEN 13 mg/dl (7-18); BUN/CREATININE RATIO 17.3 (10-20); CALCIUM 10.5 mg/dl (8.5-10.1); CARBON DIOXIDE 37 mmol/L (21-32); CHLORIDE 95 mmol/L (98-107); CREATININE 0.76 mg/dl (0.60-1.20); GLUCOSE 116 mg/dl (70-99); POTASSIUM 4.2 mmol/L (3.5-5.1); SODIUM 134 mmol/L (136-145)
[2017-01-27 17:19] LABS: ALKALINE PHOSPHATASE 87 U/L (45-117); AST/SGOT 19 U/L (15-37)
[2017-01-27] MEDS ORDERED: CYCLOBENZAPRINE HCL 5 MG TAB PO STA (17:48)
[2017-01-27 20:03] VITALS: BP 96/71; PULSE 86; O2SAT 98
[2017-01-28] MEDS ORDERED: RIVAROXABAN 20 MG TAB PO SCH (09:00)
== END 2017-01-27 20:07 | disposition home or self-care (01) ==
LOC: EDBD 15:39 → C.EDC 15:40
DX: R07.89 Other chest pain (principal); I10 Essential (primary) hypertension; J44.9 Chronic obstructive pulmonary disease, unspecified; R31.9 Hematuria, unspecified; F32.9 Major depressive disorder, single episode, unspecified; F41.9 Anxiety disorder, unspecified; J43.9 Emphysema, unspecified; Z87.442 Personal history of urinary calculi; Z98.890 Other specified postprocedural states; Z79.899 Other long term (current) drug therapy; Z88.2 Allergy status to sulfonamides; Z88.6 Allergy status to analgesic agent; Z88.8 Allergy status to other drugs, medicaments and biological substances; Z83.79 Family history of other diseases of the digestive system; Z82.49 Family history of ischemic heart disease and other diseases of the circulatory system; Z84.1 Family history of disorders of kidney and ureter

== ENCOUNTER 2017-02-03 14:35 | Emergency (ER) | payer BC ==
[~2017-02-03] VITALS: Ht 154.9 cm; Wt 41.0 kg
[~2017-02-03 14:35] MED LIST changes: +IPRASOL4 INH; +RIVA1.5T PO; -VTMD1000 PO; -XRL15 PO
[2017-02-03 14:45] VITALS: TEMP 37.2; Ht 154.9 cm; Wt 41.0 kg
[2017-02-03] MEDS ORDERED: OPTIRAY 320 IV PRN (17:15)
[2017-02-03 17:47] VITALS: O2SAT 98
--- NOTE | 2017-02-03 17:55 | EMERGENCY ROOM VISIT NOTE ---
History Report prepared by Noah: Jen Avelar Under the Supervision of: Dr. Jono Barreto M.D. First contact with patient: 16:47 Chief Complaint: SHORTNESS OF BREATH Stated Complaint: SOB AND PAIN, REF BY DR Christina Triage Summary: Pt states uses 2.5 L at all times. Pt reports pain under right breast/rib area that is radiating to the back that a couple days ago. SOB. Denies dizziness or lightheadedness. PE three weeks ago in right lung. History of Present Illness The patient is a 71 year old female who presents to the Emergency Room with complaints of constant right sided rib pain beginning 5 days ago. Per the patients history, she was seen here in the beginning of January with a PE and came back with bleeding from her Xarelto in mid-January. At the end of January she was seen for chest wall pain before returning today to the ED with similar right sided rib pain. The patients states that her right sided rib pain has not resolved since she was last in the ED and worsens with taking a deep breath. The patient states that she has not felt significantly more short of breath recently. She notes that she called Dr. Rabago today about her right sided rib pain and he recommended she come in due to her recent history. The patient complains of pain radiating into her back. She rates it at a 5/10 in severity. The patient states that her Xarelto was recently decreased. She denies any cough, dizziness, and lightheadedness. She notes that she wears 2.5L of oxygen at home at all times. Source of History: patient Onset: 5 days ago Position: other (right rib) Timing: constant Modifying Factors (Worsening): breathing Associated Symptoms: + back pain, No cough, No SOB Note: Pt denies dizziness and lightheadedness. Review of Systems See HPI for pertinent positives & negatives. A total of 10 systems reviewed and were otherwise negative. Past Medical & Surgical Medical Problems: (1) Anxiety (2) COPD (chronic obstructive pulmonary disease) (3) COPD exacerbation (4) COPD exacerbation (5) Depression (6) Emphysema (7) Hematuria (8) Kidney stones Surgical Problems: (1) H/O lithotripsy Family History Gallbladder disease Heart disease Hypertension Kidney disease Kidney stones Social History Smoking Status: Former Smoker Drug Use: none Marital Status: Housing Status: unknown Occupation Status: retired Current/Historical Medications Scheduled Budesonide/Formoterol Fumarate (Symbicort 160/4.5 Inhaler ), 2 PUFFS INH BID Chlordiazepoxide (Chlordiazepoxide HCl), 25 MG PO DAILY Citalopram Hydrobromide (Celexa), 20 MG PO DAILY Home O2 Therapy (Oxygen), 2.5 LITERS NA CONTINOUS Multiple Vitamin (Multivitamin), 1 TAB PO DAILY Prednisone (Prednisone), 5 MG PO DAILY Rivaroxaban (Xarelto), 15 MG PO BID Tiotropium [place] (Spiriva Handihaler), 1 PUFF INH DAILY Scheduled PRN Albuterol Hfa (Ventolin Hfa), 2 PUFFS INH Q6H PRN for SOB/Wheezing Ipratropium-Albuterol (Duoneb), 3 ML INH Q4H PRN for SOB/Wheezing Allergies Coded Allergies: Sulfa Antibiotics (Verified Allergy, Unknown, hives, 01/12/17) Doxycycline (Verified Adverse Reaction, Unknown, n/v, 01/12/17) Escitalopram (Verified Adverse Reaction, Unknown, n/v, 01/12/17) Physical Exam Vital Signs Date Time Temp Pulse Resp B/P (MAP) Pulse Ox O2 Delivery O2 Flow Rate FiO2 02/03/17 19:10 95 18 95/60 94 Nasal Cannula 2.5 02/03/17 17:47 98 Nasal Cannula 2.5 02/03/17 17:47 90 18 123/62 98 Nasal Cannula 2.5 02/03/17 17:30 93 Nasal Cannula 2.5 02/03/17 14:45 37.2 109 20 104/58 94 Nasal Cannula 2.5 Physical Exam GENERAL: Patient is in no acute distress. HEENT: No acute trauma, normocephalic atraumatic, mucous membranes moist, no nasal congestion, no scleral icterus. NECK: No stridor, no adenopathy, no meningismus, trachea is midline. LUNGS: Diminished breath sounds bilaterally, equal, no wheezes or rhonchi. CHEST: Tender to the right lateral mid chest wall, no rash. HEART: Without murmurs gallops or rubs, regular rate and rhythm. ABDOMEN: Soft, nontender, bowel sounds positive, no hernias, no peritonitis. EXTREMITIES: No cyanosis or edema, full range of motion of all the joints without pain or difficulty, no signs for acute trauma. NEUROLOGIC: Oriented x 3, no acute motor or sensory deficits, no focal weakness. SKIN: No rash, no jaundice, no diaphoresis. Medical Decision & Procedures ER Provider Diagnostic Interpretation: Radiology results as stated below per my review and radiologist interpretation: CT ANGIOGRAM OF THE CHEST FINDINGS: Visualization of the upper abdomen reveals large bilateral renal calculi. There is a small to moderate pericardial effusion. No pathologically enlarged axillary mediastinal or hilar lymph nodes were visualized. There was no evidence of thoracic aortic dilatation. There were no pulmonary artery filling defects to indicate acute pulmonary embolism. No pleural effusions are visualized. There is severe pulmonary emphysema involving the left lower lobe with near total destruction of lung parenchyma. The left lower lobe is expanded. There is right lower lobe bronchial wall thickening and mucous plugging. There is a stable 5 mm right lower lobe pulmonary nodule. IMPRESSION: 1. No CT evidence of acute pulmonary embolism 2. Right lower lobe bronchial wall thickening and mucous plugging 3. Severe pulmonary emphysema 4. Stable 5 mm right lower lobe pulmonary nodule Electronically signed by: Kanu Ayers M.D. 02/03/2017 6:34 PM Dictated Date/Time: 02/03/2017 6:24 PM Laboratory Results 02/03/17 17:40 02/03/17 17:40 Test 02/03/17 17:30 02/03/17 17:40 Urine Color BROWN Urine Appearance TURBID (CLEAR) Urine pH 8.0 (4.5-7.5) Urine Specific [place] 1.015 (1.000-1.030) Urine Protein 2+ (NEG) Urine Glucose (UA) NEG (NEG) Urine Ketones NEG (NEG) Urine Occult Blood 3+ (NEG) Urine Nitrite NEG (NEG) Urine Bilirubin NEG (NEG) Urine Urobilinogen NEG (NEG) Urine Leukocyte Esterase MODERATE (NEG) Urine RBC >30 /hpf (0-4) Urine WBC >30 /hpf (0-5) Urine Epithelial Cells >30 /lpf (0-5) Urine Bacteria 1+ (NEG) Urine Hyaline Casts 1-5 /lpf (0-5) Red Blood Count 4.00 M/uL (4.2-5.4) Mean Corpuscular Volume 97.8 fL (80-100) Mean Corpuscular Hemoglobin 30.5 pg (25-34) Mean Corpuscular Hemoglobin Concent 31.2 g/dl (32-36) RDW Standard Deviation 44.4 fL (36.4-46.3) RDW Coefficient of Variation 12.4 % (11.5-14.5) Mean Platelet Volume 11.3 fL (7.4-10.4) Prothrombin Time 10.0 SECONDS (9.0-12.0) Prothromb Time International Ratio 1.0 (0.9-1.1) Activated Partial Thromboplast Time 25.5 SECONDS (21.0-31.0) Partial Thromboplastin Ratio 1.0 Anion Gap 3.0 mmol/L (3-11) Est Creatinine Clear Calc Drug Dose 42.1 ml/min Estimated GFR () 88.8 Estimated GFR (Non- 76.6 BUN/Creatinine Ratio 16.4 (10-20) Calcium Level 11.0 mg/dl (8.5-10.1) Total Bilirubin 0.3 mg/dl (0.2-1) Aspartate Amino Transf (AST/SGOT) 22 U/L (15-37) Alanine Aminotransferase (ALT/SGPT) 26 U/L (12-78) Alkaline Phosphatase 112 U/L (45-117) Total Creatine Kinase 29 U/L (26-192) Troponin I < 0.015 ng/ml (0-0.045) Total Protein 8.0 gm/dl (6.4-8.2) Albumin 4.2 gm/dl (3.4-5.0) Globulin 3.8 gm/dl (2.5-4.0) Albumin/Globulin Ratio 1.1 (0.9-2) Laboratory results reviewed by me. ECG Indication: chest pain Rate (beats per minute): 89 Rhythm: normal sinus Findings: no acute ischemic change, no ectopy ED Course 1607: The patient was evaluated in room B4. A complete history and physical exam was performed. 185: I reevaluated and updated the patient. 190: Reevaluated the patient. Discussed results and discharge instructions: She verbalized understanding and agreement. The patient is ready for discharge. Medical Decision The patient is a 71 year old female who presents to the ED with complaints of constant right sided rib pain that radiates into her back. Differential diagnoses considered include musculoskeletal pain, rib fracture, pulmonary infarct, pleurisy, pneumonia, worsening PE, PA. There is no leukocytosis or concerning anemia. No significant electrolyte abnormalities, kidney failure or hepatitis. EKG shows a sinus rhythm, no acute ischemia. Cardiac enzyme testing times one is not suggestive of acute cardiac injury. Chest x-ray shows chronic lung disease, no pneumothorax or pneumonia. Urinalysis shows contamination, no obvious infection. Chest CT does not show evidence for acute PE, some chronic findings were seen. There was no true pneumonia, no pneumothorax or CHF. The patient presents with right-sided chest pain. She did have a pulmonary embolus on this same side. Her pain is somewhat reproducible. I suspect the patient's pain is secondary to pleurisy. She was reassured by the fact that there was no worsening or new PE. The patient will continue her Xarelto and follow with her inker. She does not want anything stronger than Tylenol for pain. If worsening, she can return. Medication Reconcilliation Current Medication List: was personally reviewed by me Blood Pressure Screening Patient's blood pressure: Normal blood pressure Blood pressure disposition: Did not require urgent referral Impression Primary Impression: Right-sided chest pain Additional Impression: History of pulmonary embolism Scribe Attestation The scribe's documentation has been prepared under my direction and personally reviewed by me in its entirety. I confirm that the note above accurately reflects all work, treatment, procedures, and medical decision making performed by me. Departure Information Dispostion Home / Self-Care Referrals Bessie Corbin M.D. (PCP) Forms HOME CARE DOCUMENTATION FORM, IMPORTANT VISIT INFORMATION Patient Instructions My [facility] emids Additional Instructions tylenol for pain may use heat to the area--this may help follow with Dr. Rabgao and kareem glass return for fever, vomiting or if feeling short of breath no clot today by CT scan Problem Qualifiers
[2017-02-03 18:02] LABS: MANUAL MICROSCOPIC REQUIRED? YES; URINE APPEARANCE TURBID (CLEAR); URINE COLOR BROWN; URINE NITRITE NEG (NEG); URINE SPECIFIC GRAVITY 1.015 (1.000-1.030); UROBILINOGEN NEG (NEG)
[2017-02-03 18:04] LABS: REVIEW REQ? NO; URINE BILIRUBIN NEG (NEG)
[2017-02-03 18:05] LABS: SULFASALICYLIC ACID POS (NEG)
[2017-02-03 18:13] LABS: URINE BACTERIA 1+ (NEG); URINE RBC >30 /hpf (0-4); URINE WBC >30 /hpf (0-5)
[2017-02-03 18:19] LABS: HEMATOCRIT 39.1 % (37-47); MEAN CELL VOLUME 97.8 fL (80-100); MEAN CORPUSCULAR HEMOGLOBIN 30.5 pg (25-34); MEAN CORPUSCULAR HGB CONC 31.2 g/dl (32-36); MEAN PLATELET VOLUME 11.3 fL (7.4-10.4); PLATELET COUNT 289 K/uL (130-400); WHITE BLOOD COUNT 6.71 K/uL (4.8-10.8)
[2017-02-03 18:32] LABS: ALT/SGPT 26 U/L (12-78); AST/SGOT 22 U/L (15-37); BLOOD UREA NITROGEN 13 mg/dl (7-18); BUN/CREATININE RATIO 16.4 (10-20); CARBON DIOXIDE 35 mmol/L (21-32); CHLORIDE 93 mmol/L (98-107); CREATININE 0.77 mg/dl (0.60-1.20); GLUCOSE 121 mg/dl (70-99); POTASSIUM 3.9 mmol/L (3.5-5.1); SODIUM 131 mmol/L (136-145)
--- NOTE | 2017-02-03 18:35 | DIAGNOSTIC IMAGING REPORT ---
CT ANGIOGRAM OF THE CHEST CLINICAL HISTORY: Atypical chest pain. COMPARISON STUDY: 01/07/2017 TECHNIQUE: Following the IV administration of 90 mL of [id number]-320, CT angiogram of the thorax was performed from the thoracic inlet to the lung bases utilizing the pulmonary embolus protocol. Images are reviewed in the axial, sagittal, and coronal planes. IV contrast was administered without complication. MIP imaging was performed. A dose lowering technique was utilized adhering to the principles of ALARA. CT DOSE: 219.78 mGy.cm FINDINGS: Visualization of the upper abdomen reveals large bilateral renal calculi. There is a small to moderate pericardial effusion. No pathologically enlarged axillary mediastinal or hilar lymph nodes were visualized. There was no evidence of thoracic aortic dilatation. There were no pulmonary artery filling defects to indicate acute pulmonary embolism. No pleural effusions are visualized. There is severe pulmonary emphysema involving the left lower lobe with near total destruction of lung parenchyma. The left lower lobe is expanded. There is right lower lobe bronchial wall thickening and mucous plugging. There is a stable 5 mm right lower lobe pulmonary nodule. IMPRESSION: 1. No CT evidence of acute pulmonary embolism 2. Right lower lobe bronchial wall thickening and mucous plugging 3. Severe pulmonary emphysema 4. Stable 5 mm right lower lobe pulmonary nodule Electronically signed by: Kanu Ayers M.D. 02/03/2017 6:34 PM Dictated Date/Time: 02/03/2017 6:24 PM
[2017-02-03 18:36] LABS: ALB/GLOB RATIO 1.1 (0.9-2); ALKALINE PHOSPHATASE 112 U/L (45-117)
[2017-02-03 19:10] VITALS: BP 95/60; PULSE 95; O2SAT 94
== END 2017-02-03 19:26 | disposition home or self-care (01) ==
LOC: C.EDB 14:36
DX: R07.89 Other chest pain (principal); J44.9 Chronic obstructive pulmonary disease, unspecified; J43.9 Emphysema, unspecified; F41.9 Anxiety disorder, unspecified; Z87.442 Personal history of urinary calculi; Z87.891 Personal history of nicotine dependence; Z79.899 Other long term (current) drug therapy; Z98.890 Other specified postprocedural states; Z88.2 Allergy status to sulfonamides; Z88.3 Allergy status to other anti-infective agents; Z88.8 Allergy status to other drugs, medicaments and biological substances; Z83.79 Family history of other diseases of the digestive system; Z82.49 Family history of ischemic heart disease and other diseases of the circulatory system; Z84.1 Family history of disorders of kidney and ureter

== ENCOUNTER 2017-02-07 13:07 | Inpatient (IN) | payer BC, OTHER ==
[~2017-02-07] VITALS: Ht 162.6 cm; Wt 38.9 kg
[2017-02-07] VITALS (15 sets, daily range): BP systolic 99–114; BP diastolic 42–69; PULSE 88–108; TEMP 36.6–36.8; O2SAT 88–97; Ht 162.6 cm; Wt 38.9 kg
[2017-02-07] MEDS ORDERED: SODIUM CHLORIDE 0.9% 500ML 500 ML IV STA (13:27)
[2017-02-07] MEDS ORDERED: ONDANSETRON INJ 2 MG/ML 2 ML VIAL IV STA (13:27)
[2017-02-07] MEDS ORDERED: ALBUT/IPRATROP 3MG/0.5MG NEB 3 ML VIAL INH ONE (13:30)
--- NOTE | 2017-02-07 13:40 | EMERGENCY ROOM VISIT NOTE ---
History Report prepared by Sudhakaribbonilla: Mya Leahy Under the Supervision of: Dr. Mk Crowell D.O. First contact with patient: 13:24 Chief Complaint: CHEST PAIN Stated Complaint: INCREASE CHEST PAIN,BACK PAIN Nursing Triage Summary: "Everything hurts. I had a blood clot on the , then I developed pain underneath my right breast, and I have kidney stones in bilateral kidneys." Dtr called bulk loader today because right chest pain radiating into right back is getting worse, he recommended Chest CT with contrast and Cxr. History of Present Illness The patient is a 71 year old female who presents to the Emergency Room with complaints of chest pain and shortness of breath. The patient is a history of COPD but also was recently diagnosed with pulmonary embolism last month. She continues to take her blood thinner and states that she takes it at night. Her last dose was last evening. She's had ongoing shortness of breath and cough as well as right-sided chest pain. The chest pain has been ongoing for the last few days. She had a recent CAT scan of the chest on 02/03/2017. This did not show any signs of acute pulmonary embolism. The patient called her primary bulk loader today and was sent to the emergency department for a CT the chest. The patient has ongoing chest pain especially with deep breath. She does have a productive cough but denies having any hemoptysis. She does not note that she has any fevers. She denies any lower extremity pain or swelling. Source of History: patient Onset: past few days Position: chest Timing: constant Modifying Factors (Worsening): breathing Associated Symptoms: + cough, No fevers Review of Systems See HPI for pertinent positives & negatives. A total of 10 systems reviewed and were otherwise negative. Past Medical & Surgical Medical Problems: (1) Acute and chronic respiratory failure (2) Anxiety (3) COPD (chronic obstructive pulmonary disease) (4) COPD exacerbation (5) COPD exacerbation (6) COPD exacerbation (7) Depression (8) Emphysema (9) Hematuria (10) Kidney stones Surgical Problems: (1) H/O lithotripsy Family History Gallbladder disease Heart disease Hypertension Kidney disease Kidney stones Social History Smoking Status: Former Smoker Drug Use: none Marital Status: Housing Status: unknown Occupation Status: retired Current/Historical Medications Scheduled Budesonide/Formoterol Fumarate (Symbicort 160/4.5 Inhaler ), 2 PUFFS INH BID Chlordiazepoxide (Chlordiazepoxide HCl), 25 MG PO DAILY Citalopram Hydrobromide (Celexa), 20 MG PO DAILY Home O2 Therapy (Oxygen), 2.5 LITERS NA CONTINOUS Multiple Vitamin (Multivitamin), 1 TAB PO DAILY Prednisone (Prednisone), 5 MG PO DAILY Rivaroxaban (Xarelto), 1 TAB PO DAILY Tiotropium [place] (Spiriva Handihaler), 1 PUFF INH DAILY Scheduled PRN Albuterol Hfa (Ventolin Hfa), 2 PUFFS INH Q6H PRN for SOB/Wheezing Ipratropium-Albuterol (Duoneb), 3 ML INH Q4H PRN for SOB/Wheezing Allergies Coded Allergies: Sulfa Antibiotics (Verified Allergy, Unknown, hives, 02/07/17) Doxycycline (Verified Adverse Reaction, Unknown, n/v, 02/07/17) Escitalopram (Verified Adverse Reaction, Unknown, n/v, 02/07/17) Physical Exam Vital Signs Date Time Temp Pulse Resp B/P (MAP) Pulse Ox O2 Delivery O2 Flow Rate FiO2 02/07/17 14:56 37.0 107 16 122/66 94 Nasal Cannula 4.0 02/07/17 14:07 88 16 94 Nasal Cannula 4.0 02/07/17 13:46 105 02/07/17 13:45 104 22 101/69 97 Nasal Cannula 4.0 02/07/17 13:32 90 Nasal Cannula 4.0 02/07/17 13:32 90 Nasal Cannula 4.0 02/07/17 13:14 74 Nasal Cannula 2.5 02/07/17 13:14 37.0 111 22 139/77 76 Nasal Cannula 2.5 Physical Exam GENERAL: Patient is awake and alert. She is very anxious appearing. She appears to have difficulty breathing and her daughter is answer questions for her. EYES: The conjunctivae are clear. The pupils are round and reactive. EARS, NOSE, MOUTH AND THROAT: The nose is without any evidence of any deformity. Mucous membranes are moist tongue is midline NECK: The neck is nontender and supple. RESPIRATORY: Significant tachypnea as well as conversational dyspnea is appreciated. There are intercostal retractions as well as pursed lip breathing noted. CARDIOVASCULAR: Regular rate and rhythm noted there no murmurs rubs or gallops normal S1 normal S2 GASTROINTESTINAL: The abdomen is soft. Bowel sounds are present in all quadrants. Abdomen is nontender MUSCULOSKELETAL/EXTREMITIES: There is no evidence of gross deformity full range of motion is noted in the hips and shoulders SKIN: There is no obvious evidence of any rash. There are no petechiae, pallor or cyanosis noted. NEUROLOGIC: Patient is awake alert and oriented x3 strength is symmetric. Medical Decision & Procedures ER Provider Diagnostic Interpretation: Radiology results as stated below per my review and radiologist interpretation: CHEST ONE VIEW PORTABLE CLINICAL HISTORY: EVALUATE RESPIRATORY DISTRESS.DYSPNEA COMPARISON STUDY: 03/29/2016 FINDINGS: Unchanged exam. Diffuse emphysematous change with hyperinflation of the left hemithorax. Mild shift of the cardiomediastinal silhouette to the right which is chronic in this patient. Slight prominence of pulmonary vasculature on the right unchanged in the prior exam. Diaphragms are smooth. Very slight chronic blunting right lateral gastric angle. IMPRESSION: Severe emphysematous change. No acute process. No change in the prior exam. The above report was generated using voice recognition software. It may contain grammatical, syntax or spelling errors. Electronically signed by: Cesar Toth M.D. 02/07/2017 1:51 PM Laboratory Results 02/07/17 13:35 Red Blood Count 3.56, Mean Corpuscular Volume 98.0, Mean Corpuscular Hemoglobin 30.6, Mean Corpuscular Hemoglobin Concent 31.2, Mean Platelet Volume 10.9, Neutrophils (%) (Auto) 88.6, Lymphocytes (%) (Auto) 7.2, Monocytes (%) (Auto) 3.6, Eosinophils (%) (Auto) 0.1, Basophils (%) (Auto) 0.2, Neutrophils # (Auto) 8.95, Lymphocytes # (Auto) 0.73, Monocytes # (Auto) 0.36, Eosinophils # (Auto) 0.01, Basophils # (Auto) 0.02 02/07/17 13:35 Test 02/07/17 13:35 02/07/17 13:47 02/07/17 13:50 02/07/17 13:51 White Blood Count 10.10 K/uL (4.8-10.8) Red Blood Count 3.56 M/uL (4.2-5.4) Hemoglobin 10.9 g/dL (12.0-16.0) Hematocrit 34.9 % (37-47) Mean Corpuscular Volume 98.0 fL (80-100) Mean Corpuscular Hemoglobin 30.6 pg (25-34) Mean Corpuscular Hemoglobin Concent 31.2 g/dl (32-36) Platelet Count 280 K/uL (130-400) Mean Platelet Volume 10.9 fL (7.4-10.4) Neutrophils (%) (Auto) 88.6 % Lymphocytes (%) (Auto) 7.2 % Monocytes (%) (Auto) 3.6 % Eosinophils (%) (Auto) 0.1 % Basophils (%) (Auto) 0.2 % Neutrophils # (Auto) 8.95 K/uL (1.4-6.5) Lymphocytes # (Auto) 0.73 K/uL (1.2-3.4) Monocytes # (Auto) 0.36 K/uL (0.11-0.59) Eosinophils # (Auto) 0.01 K/uL (0-0.5) Basophils # (Auto) 0.02 K/uL (0-0.2) RDW Standard Deviation 45.5 fL (36.4-46.3) RDW Coefficient of Variation 12.7 % (11.5-14.5) Immature Granulocyte % (Auto) 0.3 % Immature Granulocyte # (Auto) 0.03 K/uL (0.00-0.02) Prothrombin Time 9.6 SECONDS (9.0-12.0) Prothromb Time International Ratio 0.9 (0.9-1.1) Activated Partial Thromboplast Time 25.9 SECONDS (21.0-31.0) Partial Thromboplastin Ratio 1.0 Est Creatinine Clear Calc Drug Dose 31.2 ml/min Estimated GFR () 58.3 Estimated GFR (Non- 50.3 BUN/Creatinine Ratio 20.4 (10-20) Calcium Level 10.6 mg/dl (8.5-10.1) Total Bilirubin 0.3 mg/dl (0.2-1) Aspartate Amino Transf (AST/SGOT) 22 U/L (15-37) Alanine Aminotransferase (ALT/SGPT) 24 U/L (12-78) Alkaline Phosphatase 112 U/L (45-117) Total Creatine Kinase 24 U/L (26-192) Creatine Kinase MB 1.2 ng/ml (0.5-3.6) Creatine Kinase MB Ratio 5.0 (0-3.0) Total Protein 7.4 gm/dl (6.4-8.2) Albumin 3.6 gm/dl (3.4-5.0) Globulin 3.8 gm/dl (2.5-4.0) Albumin/Globulin Ratio 0.9 (0.9-2) Venous Blood pH 7.32 (7.36-7.41) Venous Blood Partial Pressure CO2 77 mmHg (38.0-50.0) Venous Blood Partial Pressure O2 29 mmHg Venous Blood HCO3 39 mmol/L Venous Blood Oxygen Saturation < 60.0 % Venous Blood Base Excess 10.0 mEq/L Bedside Hemoglobin 11.9 g/dl (12.0-16.0) Bedside Hematocrit 35 % (37-47) Bedside Sodium 133 mEq/L (135-144) Bedside Potassium 4.2 mEq/L (3.3-5.0) Bedside Chloride 89 mEq/L (101-112) Bedside Total CO2 37 mEq/l (24-31) Anion Gap 12.0 mmol/L (16-25) Bedside Blood Urea Nitrogen 23 mg/dl (7-18) Bedside Creatinine 1.1 mg/dl (0.6-1.3) Bedside Glucose (other) 160 mg/dl (70-99) Bedside Ionized Calcium (Jerry) 1.41 mmol/l (1.12-1.32) Bedside D-Dimer 328 ng/mlFEU (0-450) Laboratory results per my review. Medications Administered Medications (Trade) Dose Ordered Sig/Khalida Route Start Time Stop Time Status Last Admin Dose Admin Ondansetron HCl (Zofran Inj) 4 mg NOW STAT IV 02/07/17 13:27 02/07/17 13:28 DC 02/07/17 13:49 4 MG Albuterol/ Ipratropium (Duoneb) 12 ml ONE ONCE INH 02/07/17 13:30 02/07/17 13:31 DC 02/07/17 13:30 12 ML Sodium Chloride 500 ml @ 999 mls/hr Q31M STAT IV 02/07/17 13:27 02/07/17 13:57 DC 02/07/17 13:49 999 MLS/HR Morphine Sulfate (MoRPHine SULFATE INJ) 4 mg Q15M PRN IV 02/07/17 13:30 02/07/17 18:20 DC 02/07/17 15:03 4 MG Methylprednisolone Sodium Succinate (Solu-Medrol IV) 125 mg NOW STAT IV 02/07/17 14:25 02/07/17 14:26 DC 02/07/17 15:04 125 MG ECG Indication: chest pain Rate (beats per minute): 97 Rhythm: normal sinus Findings: no acute ischemic change, no ectopy Change: no significant change (02/03/2017) ED Course 1320: The patient was evaluated in room B8. A complete history and physical examination were performed. 1327: NSS 500 ml @ 999 mls/hr IV, Zofran 4 mg IV. 1330: Morphine Sulfate 4 mg IV, DuoNeb 12 ml INH. 1410: I reevaluated the patient. She is asleep. 1425: I discussed the patients case with Dr. Damico, [facility] Hospitalist. The patient will be further evaluated. 1425: Solu-Medrol 125 mg IV. 1428: I reevaluated the patient. She is resting comfortably. I discussed my recommendation the patient remain in the hospital for further evaluation and management and she and her family verbalized complete understanding and agreement. Medical Decision Prior records/ancillary studies reviewed. Triage Nursing notes reviewed. Additional history obtained from the family. The patient's history was concerning for respiratory difficulties. Differential diagnosis: Etiologies such as infections, reactive airway disease, pneumonia, pneumothorax , COPD, CHF, cardiac ischemia, pulmonary embolism, musculoskeletal, gastrointestinal, as well as others were entertained. The patient is a 71-year-old female who presented to the emergency department for evaluation of chest pain shortness of breath. The patient has had ongoing right-sided chest pain for quite some time but she was recently diagnosed with pulmonary embolism last month. The patient states that she is currently compliant with her anticoagulation. The last dose was last evening. The patient was having worsening shortness of breath and coughing. She appeared to be in significant respiratory distress. The patient was given a DuoNeb as well as IV steroids. She was also treated with pain medication IV and IV fluids. On subsequent reevaluation she was feeling much better. The patient called her primary bulk loader and was sent to the emergency department for a CAT scan of the chest. She had a CAT scan of the chest 4 days ago which did not reveal any acute pulmonary embolism. This time the patient requires inpatient management of her COPD. I will defer CAT scan of the chest to the admitting team as I'm not sure that this is required for diagnosis of pulmonary embolism at this time she may require a CT the chest to determine why she has had such a severe exacerbation of her COPD with such an abnormal chest x-ray at this time. I discussed this with the patient and she is aware of this plan. I discussed his case with the on-call [facility] hospitalist. They have agreed to evaluate the patient in the emergency department for further management and disposition. Medication Reconcilliation Current Medication List: was personally reviewed by me Blood Pressure Screening Patient's blood pressure: Normal blood pressure Blood pressure disposition: Did not require urgent referral Consults Time Called: 1420 Consulting Physician: Dr. Damico, [facility] Hospitalist Returned Call: 1429 I discussed the patients case with Dr. Damico [facility] Hospitalist. The patient will be further evaluated. Impression Primary Impression: COPD exacerbation Additional Impressions: Hypoxia Respiratory acidosis Scribe Attestation The scribe's documentation has been prepared under my direction and personally reviewed by me in its entirety. I confirm that the note above accurately reflects all work, treatment, procedures, and medical decision making performed by me. Departure Information Dispostion Being Evaluated By Hospitalist Referrals Bessie Corbin M.D. (PCP) Patient Instructions My [facility] Health Problem Qualifiers
[2017-02-07] MEDS: MoRPHine SULFATE 4 MG/ML 1 ML CARP\\VIAL IV PRN ×2 (13:50→15:03)
--- NOTE | 2017-02-07 13:52 | DIAGNOSTIC IMAGING REPORT ---
CHEST ONE VIEW PORTABLE CLINICAL HISTORY: EVALUATE RESPIRATORY DISTRESS.DYSPNEA COMPARISON STUDY: 03/29/2016 FINDINGS: Unchanged exam. Diffuse emphysematous change with hyperinflation of the left hemithorax. Mild shift of the cardiomediastinal silhouette to the right which is chronic in this patient. Slight prominence of pulmonary vasculature on the right unchanged in the prior exam. Diaphragms are smooth. Very slight chronic blunting right lateral gastric angle. IMPRESSION: Severe emphysematous change. No acute process. No change in the prior exam. The above report was generated using voice recognition software. It may contain grammatical, syntax or spelling errors. Electronically signed by: Cesar Toth M.D. 02/07/2017 1:51 PM Dictated Date/Time: 02/07/2017 1:49 PM
[2017-02-07 14:02] LABS: ISTAT CREATININE 1.1 mg/dl (0.6-1.3); ISTAT HEMOGLOBIN 11.9 g/dl (12.0-16.0); ISTAT IONIZED CALCIUM 1.41 mmol/l (1.12-1.32)
[2017-02-07 14:02] LABS: VENOUS BLOOD GAS PCO2 77 mmHg (38.0-50.0); VENOUS BLOOD GAS PO2 29 mmHg
[2017-02-07 14:02] LABS: BASO % 0.2 %; BASO ABS # 0.02 K/uL (0-0.2); COMPLETE YES; EOS % 0.1 %; HEMATOCRIT 34.9 % (37-47); IG% 0.3 %; LYMPH % 7.2 %; LYMPH ABS # 0.73 K/uL (1.2-3.4); MEAN CORPUSCULAR HEMOGLOBIN 30.6 pg (25-34); MEAN CORPUSCULAR HGB CONC 31.2 g/dl (32-36); MEAN PLATELET VOLUME 10.9 fL (7.4-10.4); MONO % 3.6 %; NEUT % 88.6 %; PLATELET COUNT 280 K/uL (130-400); RED BLOOD COUNT 3.56 M/uL (4.2-5.4)
[2017-02-07 14:03] LABS: VEN BLD GAS O2 SATURATION < 60.0 %
[2017-02-07 14:13] LABS: INR 0.9 (0.9-1.1); PROTHROMBIN TIME (PATIENT) 9.6 SECONDS (9.0-12.0)
[2017-02-07 14:19] LABS: ALT/SGPT 24 U/L (12-78); AST/SGOT 22 U/L (15-37); BLOOD UREA NITROGEN 22 mg/dl (7-18); BUN/CREATININE RATIO 20.4 (10-20); CALCIUM 10.6 mg/dl (8.5-10.1); CARBON DIOXIDE 36 mmol/L (21-32); CHLORIDE 93 mmol/L (98-107); CREATININE 1.09 mg/dl (0.60-1.20); GLUCOSE 150 mg/dl (70-99); POTASSIUM 4.1 mmol/L (3.5-5.1); SODIUM 132 mmol/L (136-145)
[2017-02-07 14:24] LABS: ALB/GLOB RATIO 0.9 (0.9-2); ALKALINE PHOSPHATASE 112 U/L (45-117)
[2017-02-07] MEDS ORDERED: METHYLPREDNISOLONE 125 MG VIAL IV STA (14:25)
[2017-02-07] MEDS ORDERED: RIVA1TAB4 PO (15:14)
[2017-02-07] MEDS ORDERED: POLYETHYLENE (MIRALAX) 17 GM PACK PO PRN (15:15)
[2017-02-07] MEDS ORDERED: MAGNESIUM HYDROXIDE SUSP 30 ML UDC PO PRN (15:15)
[2017-02-07] MEDS ORDERED: ONDANSETRON INJ 2 MG/ML 2 ML VIAL IV PRN (15:15)
[2017-02-07] MEDS ORDERED: ALUMINUM/MAGNESIUM/SIMETH (MAALOX MAX) 30 ML UDC PO PRN (15:15)
[2017-02-07] MEDS ORDERED: TRAMADOL HCL 50 MG TAB PO PRN (15:30)
--- NOTE | 2017-02-07 15:34 | History and Physical ---
History & Physical Date & Time of Service: Feb 07, 2017 at 15:14 Chief Complaint: Increase Chest Pain,Back Pain Primary Care Physician: Bessie Corbin M.D. History of Present Illness Source: patient, family (daughter at bedside), clinic records, hospital records This is a 71 y/o female with a history of severe COPD, recent PE diagnosed on Xarelto, chronic respiratory failure, and depression with anxiety who presented to the ED on 02/07 with worsening shortness of breath and right chest pain. The patient states she first developed right sided chest pain under her right breast about 3 weeks ago. The pain began to then radiate to her back. She currently rates the pain as a 5/10 dull pain that is worse with deep breaths. In the last week or so, she has also had worsening shortness of breath and dyspnea on exertion. The patient chronically wears 2.5L NC. A few days ago the patient also developed a non-productive cough and intermittent wheezing. She reports generalized weakness and fatigue. The patient was recently diagnosed with a PE on 01/07/17. She was initially treated with IV heparin and then transitioned to Xarelto on 01/08. The patient denies fevers, chills, sweats, palpitations, claudication, nausea, vomiting, abdominal pain, dysuria, hematuria, urinary retention, paralysis, focal motor weakness, numbness and tingling. Past Medical/Surgical History Medical Problems: (1) Anxiety Status: Chronic (2) COPD (chronic obstructive pulmonary disease) Status: Chronic (3) COPD exacerbation Status: Chronic (4) COPD exacerbation Status: Chronic (5) Depression Status: Chronic (6) Emphysema Status: Chronic (7) Kidney stones Status: Resolved Surgical Problems: (1) H/O lithotripsy Status: Resolved Family History Gallbladder disease Heart disease Hypertension Kidney disease Kidney stones Lung disease Ovarian cancer Social History Smoking Status: Former Smoker (quit 2013) Smokeless Tobacco Use: No Alcohol Use: none Drug Use: none Marital Status: Housing status: lives alone Occupational Status: retired Immunizations History of Influenza Vaccine: Unknown History of Tetanus Vaccine?: Unknown History of Pneumococcal: Unknown History of Hepatitis B Vaccine: Unknown Allergies Coded Allergies: Sulfa Antibiotics (Verified Allergy, Unknown, hives, 02/07/17) Doxycycline (Verified Adverse Reaction, Unknown, n/v, 02/07/17) Escitalopram (Verified Adverse Reaction, Unknown, n/v, 02/07/17) Home Medications Scheduled Budesonide/Formoterol Fumarate (Symbicort 160/4.5 Inhaler ), 2 PUFFS INH BID Chlordiazepoxide (Chlordiazepoxide HCl), 25 MG PO DAILY Citalopram Hydrobromide (Celexa), 20 MG PO DAILY Home O2 Therapy (Oxygen), 2.5 LITERS NA CONTINOUS Multiple Vitamin (Multivitamin), 1 TAB PO DAILY Prednisone (Prednisone), 5 MG PO DAILY Rivaroxaban (Xarelto), 1 TAB PO DAILY Tiotropium [place] (Spiriva Handihaler), 1 PUFF INH DAILY Scheduled PRN Albuterol Hfa (Ventolin Hfa), 2 PUFFS INH Q6H PRN for SOB/Wheezing Ipratropium-Albuterol (Duoneb), 3 ML INH Q4H PRN for SOB/Wheezing Review of Systems Constitutional: +Generalized weakness, fatigue. No fever, No chills, No sweats Eyes: No worsening of vision, No eye pain, No diplopia ENT: No hearing loss, No nasal symptoms, No trouble swallowing Respiratory: +Cough, wheezing, SOB, SOTO. Cardiovascular: +Right chest pain radiating to back. No claudication, No palpitations Abdomen: No pain, No nausea, No vomiting Musculoskeletal: +Back pain radiating from chest. No muscle pain, No swelling Genitourinary - Female: No dysuria, No urinary retention, No hematuria Neurologic: No paralysis, No weakness, No numbness/tingling Integumentary: No rash, No itch, No color change Physical Exam Vital Signs Date Time Temp Pulse Resp B/P (MAP) Pulse Ox O2 Delivery O2 Flow Rate FiO2 02/07/17 14:56 37.0 107 16 122/66 94 Nasal Cannula 4.0 02/07/17 14:07 88 16 94 Nasal Cannula 4.0 02/07/17 13:46 105 02/07/17 13:45 104 22 101/69 97 Nasal Cannula 4.0 02/07/17 13:32 90 Nasal Cannula 4.0 02/07/17 13:32 90 Nasal Cannula 4.0 02/07/17 13:14 74 Nasal Cannula 2.5 02/07/17 13:14 37.0 111 22 139/77 76 Nasal Cannula 2.5 General appearance: +Appears chronically ill. Well-developed, well-nourished, no apparent distress Head: Normocephalic, atraumatic Eyes: Normal inspection, PERRL, EOMI ENT: Normal ENT inspection, hearing grossly normal, pharynx normal Neck: Supple, no JVD, trachea midline Respiratory/Chest: +Diminished throughout. Diffuse wheezing, long expiratory phase. Currently receiving DuoNeb hour long. Right lower chest TTP. No respiratory distress Cardiovascular: +Tachycardia, on DuoNeb. Regular rhythm, no gallop, no murmur Abdomen/GI: Normal bowel sounds, non-tender, soft Extremities/Musculoskeletal: Normal inspection, no calf tenderness, no pedal edema Neurological/Psych: +Somewhat lethargic. Normal mood/affect, oriented x 3 Skin: Normal color, warm/dry, no rash Diagnostics Laboratory Results Results Past 24 Hours Test 02/07/17 13:35 02/07/17 13:47 02/07/17 13:50 02/07/17 13:51 Range/Units White Blood Count 10.10 4.8-10.8 K/uL Red Blood Count 3.56 4.2-5.4 M/uL Hemoglobin 10.9 12.0-16.0 g/dL Hematocrit 34.9 37-47 % Mean Corpuscular Volume 98.0 80-100 fL Mean Corpuscular Hemoglobin 30.6 25-34 pg Mean Corpuscular Hemoglobin Concent 31.2 32-36 g/dl Platelet Count 280 130-400 K/uL Mean Platelet Volume 10.9 7.4-10.4 fL Neutrophils (%) (Auto) 88.6 % Lymphocytes (%) (Auto) 7.2 % Monocytes (%) (Auto) 3.6 % Eosinophils (%) (Auto) 0.1 % Basophils (%) (Auto) 0.2 % Neutrophils # (Auto) 8.95 1.4-6.5 K/uL Lymphocytes # (Auto) 0.73 1.2-3.4 K/uL Monocytes # (Auto) 0.36 0.11-0.59 K/uL Eosinophils # (Auto) 0.01 0-0.5 K/uL Basophils # (Auto) 0.02 0-0.2 K/uL RDW Standard Deviation 45.5 36.4-46.3 fL RDW Coefficient of Variation 12.7 11.5-14.5 % Immature Granulocyte % (Auto) 0.3 % Immature Granulocyte # (Auto) 0.03 0.00-0.02 K/uL Prothrombin Time 9.6 9.0-12.0 SECONDS Prothromb Time International Ratio 0.9 0.9-1.1 Activated Partial Thromboplast Time 25.9 21.0-31.0 SECONDS Partial Thromboplastin Ratio 1.0 Sodium Level 132 136-145 mmol/L Potassium Level 4.1 3.5-5.1 mmol/L Chloride Level 93 98-107 mmol/L Carbon Dioxide Level 36 21-32 mmol/L Anion Gap 3.0 12.0 16-25 mmol/L Blood Urea Nitrogen 22 7-18 mg/dl Creatinine 1.09 0.60-1.20 mg/dl Est Creatinine Clear Calc Drug Dose 31.2 ml/min Estimated GFR () 58.3 Estimated GFR (Non- 50.3 BUN/Creatinine Ratio 20.4 10-20 Random Glucose 150 70-99 mg/dl Calcium Level 10.6 8.5-10.1 mg/dl Total Bilirubin 0.3 0.2-1 mg/dl Aspartate Amino Transf (AST/SGOT) 22 15-37 U/L Alanine Aminotransferase (ALT/SGPT) 24 12-78 U/L Alkaline Phosphatase 112 45-117 U/L Total Creatine Kinase 24 26-192 U/L Creatine Kinase MB 1.2 0.5-3.6 ng/ml Creatine Kinase MB Ratio 5.0 0-3.0 Troponin I < 0.015 0-0.045 ng/ml Total Protein 7.4 6.4-8.2 gm/dl Albumin 3.6 3.4-5.0 gm/dl Globulin 3.8 2.5-4.0 gm/dl Albumin/Globulin Ratio 0.9 0.9-2 Venous Blood pH 7.32 7.36-7.41 Venous Blood Partial Pressure CO2 77 38.0-50.0 mmHg Venous Blood Partial Pressure O2 29 mmHg Venous Blood HCO3 39 mmol/L Venous Blood Oxygen Saturation < 60.0 % Venous Blood Base Excess 10.0 mEq/L Bedside Hemoglobin 11.9 12.0-16.0 g/dl Bedside Hematocrit 35 37-47 % Bedside Sodium 133 135-144 mEq/L Bedside Potassium 4.2 3.3-5.0 mEq/L Bedside Chloride 89 101-112 mEq/L Bedside Total CO2 37 24-31 mEq/l Bedside Blood Urea Nitrogen 23 7-18 mg/dl Bedside Creatinine 1.1 0.6-1.3 mg/dl Bedside Glucose (other) 160 70-99 mg/dl Bedside Ionized Calcium (Jerry) 1.41 1.12-1.32 mmol/l Bedside D-Dimer 328 0-450 ng/mlFEU Microbiology Results 02/07/17 Blood Culture, Received Pending 02/07/17 Blood Culture, Received Pending Diagnostic Radiology Reviewed the following studies and agree with interpretation as follows: CHEST ONE VIEW PORTABLE CLINICAL HISTORY: EVALUATE RESPIRATORY DISTRESS.DYSPNEA COMPARISON STUDY: 03/29/2016 FINDINGS: Unchanged exam. Diffuse emphysematous change with hyperinflation of the left hemithorax. Mild shift of the cardiomediastinal silhouette to the right which is chronic in this patient. Slight prominence of pulmonary vasculature on the right unchanged in the prior exam. Diaphragms are smooth. Very slight chronic blunting right lateral gastric angle. IMPRESSION: Severe emphysematous change. No acute process. No change in the prior exam. EKG Reviewed EKG and agree with interpretation as follows: 97 bpm, NSR Impression Assessment and Plan 71 y/o female with a history of severe COPD, recent PE diagnosed 01/07/17 on Xarelto, chronic respiratory failure, and depression with anxiety who presented to the ED on 02/07 with worsening shortness of breath and right chest pain. Pt had been seen in ED 02/03 with right chest pain. CTA chest at that time showed no acute disease. Pt arrived on her chronic 2.5L but saturating only 74%. Currently 94% on 4L. Pt tachycardic on arrival, afebrile and BP stable. CXR shows severe emphysema but no acute disease. EKG no ischemic changes. D-dimer negative. Troponin negative. VBG shows pH of 7.32, pCO2 of 77, otherwise WNL. Pt received hour long DuoNeb and loading dose of Solu-Medrol in ED. Acute on chronic respiratory failure secondary to COPD exacerbation -Admit to telemetry -Start BiPAP. Pt's baseline pCO2 around 50, up to 77 on admission per VBG -Consult pulmonology, appreciate recs. Pt follows with Dr. Rabago. 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 and was told to be evaluated in ED -Solu-Medrol 80 mg IV q8h -Xopenex/Atrovent QIDR and q2h prn SOB/wheezing -Continue Symbicort 2 puffs inh BID -Hold Spiriva due to scheduled Atrovent nebs -Hold home Prednisone Right chest pain--appears to be MSK, pain reproducible with palpation -Trend troponin q8h x 3, first negative -Tramadol 50 mg PO q4h prn pain -EKG q am and prn chest pain Recent PE diagnosed 01/07/17 -Continue Xarelto 20 mg PO qd Depression with anxiety -Continue Librium 25 mg PO qd, Celexa 20 mg PO qd DVT prophylaxis -Xarelto -CRISTIAN jaime and SCDs Code Status -Level III, FULL NO MECH VENTILATION Level of Care Telemetry Resuscitation Status FULL NO MECH VENTILATION VTE Prophylaxis VTE Risk Assessment Done? Y/N: Yes Risk Level: Moderate Given or contraindicated: Other Anticoagulation (Xarelto), T.E.D. Stockings, SCD's
--- NOTE | 2017-02-07 18:29 | Pulmonary Consultation ---
History General Date of Service: Feb 07, 2017. Stated Complaint: Acute And Chronic Respiratory Failure, Copd Exacer HPI The patient is a 71 year old female who presents to [facility] with complaints of Acute And Chronic Respiratory Failure, Copd Exacer. The patient's primary care provider is Bessie Corbin M.D.. Ms. Wyatt is a 71-year-old female with very severe COPD and chronic respiratory failure on long-term oxygen therapy about 2.5 L/min, type III pulmonary hypertension who presents to [facility] today with complaints of back and chest pain underneath right breast that radiates to right back. She states that pain is exacerbated with deep inspiration and coughing. She denies any hemoptysis. She was admitted on 01/06/2017with acute COPD exacerbation and found to have segmental and subsegmental PE of the RUL on CTA done on 01/07/2017. Multifocal multilobar bronchial wall thickening with bronchitis and new solid nodules of the RLL noted as well. She is on Xarelto 5 mg daily for anticoagulation. She has severe COPD and follows with Dr. Rabago, increment manager who sent her for CT of the chest which showed no PE, but chronic emphysematous changes and stable RLL nodules. She has chronic productive cough and dyspnea on exertion. She denies any hemotypsis, wheezing or chest tightness. She denies any fever, chills, lower extremity edema , orthopnea or paroxysmal nocturnal dyspnea. Patient states that her symptoms started when she woke up early in the morning. She describes increased wheezing and chest tightness more on the right than on the left. She took her pulse oximetry dated in the afternoon and it was 68% . She came to the hospital for further evaluation. She denies any fevers, chills, chest pain, coughing increased sputum production or hemoptysis. She denies any lower extremity swelling or edema. She denies any recent travel or sick contacts. Over the last month, she has had failure to thrive associated with decreased appetite and weight loss. Her home medications include Symbicort 160/4.52 puffs inhaled twice a day, Spiriva HandiHaler 1 Inhalation daily, ProAir HFA 2 puffs inhaled every 4 hours when necessary for shortness of breath and wheezing. She was started on prednisone taper over the summer and is on 5 mg prednisone daily. Spirometry from 11/11/2016 showed a prebronchodilator FEV1 of 26% predicted with a significant bronchodilator response. Echocardiogram from 12/16/2016 showed an EF of 55-60%. The left ventricle wall was normal. There is mild tricuspid regurgitation. Right ventricular systolic pressure is elevated at 30-40 mmHg. In the ER, her initial vital signs were MAXIMUM TEMPERATURE of 37., pulse 111, respiratory rate 22, blood [id number], saturating 76% on 2.5 L nasal cannula. Nasal cannula was increased to 4 L with saturation of 97%. Initial laboratory data showed white blood cell count of 10, hemoglobin 10, platelet count of 280. Chemistry showed sodium 132, potassium 4.1, chloride 93, bicarbonate 36, BUN 22, creatinine of 1.09 and glucose 150. Troponin was less than 0.015. D dimer 328. Calcium 10.6. VBG shows 7.32/77/29/39/<60%. Chest x-ray showed severe emphysematous changes with no acute infiltrate. EKG showed normal sinus rhythm with a ventricular rate of 97 beats/min. She was given NS 999 ml, Solu-Medrol IV 125 mg, DuoNeb 12 mL inhalation. She was admitted for acute on chronic hypoxic respiratory failure. Prior to arrival on the floor it looks like she received morphine 4 mg IV at 1300 and around 1500. At the time of my evaluation, patient is very lethargic. Responds with eye opening and is falling back asleep with during questioning. Historian: patient Onset: last week Severity: moderate, severe Complaint Status: improved Quality of Pain: sharp Method of Injury: unknown Modifying Factors: pain medication Review of Systems Constitutional: reports: weakness, weight loss Eyes: reports: as stated in HPI ENT: reports: as stated in HPI Cardiovascular: reports: as stated in HPI Respiratory: reports: cough, shortness of breath, wheezing Gastrointestinal: reports: as stated in HPI Genitourinary - Female: reports: as stated in HPI Musculoskeletal: reports: as stated in HPI Integumentary: reports: as stated in HPI Neurologic: reports: as stated in HPI Psychiatric: reports: as stated in HPI Endocrine: as stated in HPI Hematologic / Lymphatic: as stated in HPI Allergic / Immunologic: as stated in HPI All Other Symptoms All Other Systems: Reviewed and Negative Past Medical History Past Medical History: Past Medical History: Active Problems 1. Chronic obstructive pulmonary disease (J44.9) 2. Chronic respiratory failure (J96.10) 3. Depression with anxiety (F41.8) 4. Incomplete emptying of bladder (R33.9) 5. Nephrolithiasis (N20.0) 6. Oral candidiasis (B37.0) 7. Pulmonary emphysema (J43.9) 8. Secondary pulmonary hypertension (I27.2) 9. Ureteropelvic junction obstruction (N13.5) 10. Vitamin D deficiency (E55.9) Past Medical History 1. History of COPD with exacerbation (J44.1) 2. History of bronchitis (Z87.09) 3. History of renal calculi (Z87.442) Past Surgical History: Surgical History 1. History of Renal Lithotripsy 2. History of Tubal Ligation Past Medical History: COPD, deep vein thrombosis, kidney stones, urinary tract infection, vascular disease Past Surgical History: ureteral stent Family History Gallbladder disease Heart disease Hypertension Kidney disease Kidney stones Lung disease Ovarian cancer Mother 1. Family history of ovarian cancer (Z80.41) Father 2. Family history of chronic obstructive pulmonary disease (Z82.5) Social History Social History Former smoker, [id number] history of smoking (quit in 2013) No alcohol use * Denies illicit drug use Hx Tobacco Use In Past Year?: No Smoking Status: Former Smoker (quit 2013) Marital status: Housing status: lives alone Occupational Status: retired Immunizations History of Influenza Vaccine: Unknown History of Tetanus Vaccine?: Unknown History of Pneumococcal: Unknown History of Hepatitis B Vaccine: Unknown Allergies Coded Allergies: Sulfa Antibiotics (Verified Allergy, Unknown, hives, 02/07/17) Doxycycline (Verified Adverse Reaction, Unknown, n/v, 02/07/17) Escitalopram (Verified Adverse Reaction, Unknown, n/v, 02/07/17) Current Medications Reported Home Medications Medications Dose Route/Sig Max Daily Dose Days Date Category Xarelto (Rivaroxaban) 20 Mg Tab 1 Tab PO DAILY 30 02/07/17 Reported Prednisone 5 Mg Tab 5 Mg PO DAILY 01/27/17 Reported Duoneb (Ipratropium-Albuterol) 3 Ml Nebu 3 Ml INH Q4H PRN 01/27/17 Reported Spiriva Handihaler (Tiotropium Panora) 30 Puff/540 Mcg Aerp 1 Puff INH DAILY 01/12/17 Reported Ventolin Hfa (Albuterol) 200 Puffs/50275 Mcg Aers 2 Puffs INH Q6H PRN 01/12/17 Reported Chlordiazepoxide HCl (Chlordiazepoxide) 25 Mg Cap 25 Mg PO DAILY 11/25/15 Reported Symbicort 160/4.5 Inhaler (Budesonide/Formoterol Fumarate) Aero 2 Puffs INH BID 09/13/14 Reported Oxygen Gas 2.5 Liters NA CONTINOUS 09/13/14 Reported Multivitamin (Multiple Vitamin) 1 Tab Tab 1 Tab PO DAILY 12/15/13 Reported Celexa (Citalopram Hydrobromide) 20 Mg Tab 20 Mg PO DAILY 12/15/13 Reported Physical Physical Exam Vital Signs: Date Time Temp Pulse Resp B/P (MAP) Pulse Ox O2 Delivery O2 Flow Rate FiO2 02/07/17 17:29 36.8 108 18 109/68 (82) 92 2.0 02/07/17 15:52 112 18 133/66 94 Nasal Cannula 4.0 02/07/17 14:56 37.0 107 16 122/66 94 Nasal Cannula 4.0 02/07/17 14:07 88 16 94 Nasal Cannula 4.0 02/07/17 13:46 105 02/07/17 13:45 104 22 101/69 97 Nasal Cannula 4.0 02/07/17 13:32 90 Nasal Cannula 4.0 02/07/17 13:32 90 Nasal Cannula 4.0 02/07/17 13:14 74 Nasal Cannula 2.5 02/07/17 13:14 37.0 111 22 139/77 76 Nasal Cannula 2.5 General Appearance: thin, other (chronically ill female) Head: NORMOCEPHALIC, ATRAUMATIC Eyes: PERRLA, EOMI, SCLERAE NORMAL, CONJUNCTIVAE NORMAL ENT: NORMAL MOUTH EXAM, NORMAL THROAT EXAM Neck: NO TENDERNESS, TRACHEA MIDLINE, NO STRIDOR Respiratory: other (barrel chest, decreased breath sounds bilaterally. No wheezing, no crackles.) Cardiovasular: REGULAR RATE/RHYTHM, NORMAL S1S2, NO MURMUR Abdomen: NON TENDER, NORMAL BOWEL SOUNDS, NO REBOUND Back: NORMAL INSPECTION Upper Extremities: NO EDEMA, other (no cyanosis, no clubbing) Lower Extremities: NO EDEMA, NO DEFORMITY, NORMAL ROM Pulses: dorsalis pedis (R) (2+), dorsalis pedis (L) (2+) Neuro: lethargic, somnolent Psychiatric: unable to assess Diagnostics Labs Results Past 24 Hours Test 02/07/17 13:35 02/07/17 13:47 02/07/17 13:50 02/07/17 13:51 Range/Units White Blood Count 10.10 4.8-10.8 K/uL Red Blood Count 3.56 4.2-5.4 M/uL Hemoglobin 10.9 12.0-16.0 g/dL Hematocrit 34.9 37-47 % Mean Corpuscular Volume 98.0 80-100 fL Mean Corpuscular Hemoglobin 30.6 25-34 pg Mean Corpuscular Hemoglobin Concent 31.2 32-36 g/dl Platelet Count 280 130-400 K/uL Mean Platelet Volume 10.9 7.4-10.4 fL Neutrophils (%) (Auto) 88.6 % Lymphocytes (%) (Auto) 7.2 % Monocytes (%) (Auto) 3.6 % Eosinophils (%) (Auto) 0.1 % Basophils (%) (Auto) 0.2 % Neutrophils # (Auto) 8.95 1.4-6.5 K/uL Lymphocytes # (Auto) 0.73 1.2-3.4 K/uL Monocytes # (Auto) 0.36 0.11-0.59 K/uL Eosinophils # (Auto) 0.01 0-0.5 K/uL Basophils # (Auto) 0.02 0-0.2 K/uL RDW Standard Deviation 45.5 36.4-46.3 fL RDW Coefficient of Variation 12.7 11.5-14.5 % Immature Granulocyte % (Auto) 0.3 % Immature Granulocyte # (Auto) 0.03 0.00-0.02 K/uL Prothrombin Time 9.6 9.0-12.0 SECONDS Prothromb Time International Ratio 0.9 0.9-1.1 Activated Partial Thromboplast Time 25.9 21.0-31.0 SECONDS Partial Thromboplastin Ratio 1.0 Sodium Level 132 136-145 mmol/L Potassium Level 4.1 3.5-5.1 mmol/L Chloride Level 93 98-107 mmol/L Carbon Dioxide Level 36 21-32 mmol/L Anion Gap 3.0 12.0 16-25 mmol/L Blood Urea Nitrogen 22 7-18 mg/dl Creatinine 1.09 0.60-1.20 mg/dl Est Creatinine Clear Calc Drug Dose 31.2 ml/min Estimated GFR () 58.3 Estimated GFR (Non- 50.3 BUN/Creatinine Ratio 20.4 10-20 Random Glucose 150 70-99 mg/dl Calcium Level 10.6 8.5-10.1 mg/dl Total Bilirubin 0.3 0.2-1 mg/dl Aspartate Amino Transf (AST/SGOT) 22 15-37 U/L Alanine Aminotransferase (ALT/SGPT) 24 12-78 U/L Alkaline Phosphatase 112 45-117 U/L Total Creatine Kinase 24 26-192 U/L Creatine Kinase MB 1.2 0.5-3.6 ng/ml Creatine Kinase MB Ratio 5.0 0-3.0 Troponin I < 0.015 0-0.045 ng/ml Total Protein 7.4 6.4-8.2 gm/dl Albumin 3.6 3.4-5.0 gm/dl Globulin 3.8 2.5-4.0 gm/dl Albumin/Globulin Ratio 0.9 0.9-2 Venous Blood pH 7.32 7.36-7.41 Venous Blood Partial Pressure CO2 77 38.0-50.0 mmHg Venous Blood Partial Pressure O2 29 mmHg Venous Blood HCO3 39 mmol/L Venous Blood Oxygen Saturation < 60.0 % Venous Blood Base Excess 10.0 mEq/L Bedside Hemoglobin 11.9 12.0-16.0 g/dl Bedside Hematocrit 35 37-47 % Bedside Sodium 133 135-144 mEq/L Bedside Potassium 4.2 3.3-5.0 mEq/L Bedside Chloride 89 101-112 mEq/L Bedside Total CO2 37 24-31 mEq/l Bedside Blood Urea Nitrogen 23 7-18 mg/dl Bedside Creatinine 1.1 0.6-1.3 mg/dl Bedside Glucose (other) 160 70-99 mg/dl Bedside Ionized Calcium (Jerry) 1.41 1.12-1.32 mmol/l Bedside D-Dimer 328 0-450 ng/mlFEU Microbiology Results 02/07/17 Blood Culture, Received Pending 02/07/17 Blood Culture, Received Pending Diagnostic Radiology CHEST ONE VIEW PORTABLE 02/07/2017 CLINICAL HISTORY: EVALUATE RESPIRATORY DISTRESS.DYSPNEA COMPARISON STUDY: 03/29/2016 FINDINGS: Unchanged exam. Diffuse emphysematous change with hyperinflation of the left hemithorax. Mild shift of the cardiomediastinal silhouette to the right which is chronic in this patient. Slight prominence of pulmonary vasculature on the right unchanged in the prior exam. Diaphragms are smooth. Very slight chronic blunting right lateral gastric angle. IMPRESSION: Severe emphysematous change. No acute process. No change in the prior exam. CT ANGIOGRAM OF THE CHEST 02/03/2017 CLINICAL HISTORY: Atypical chest pain. COMPARISON STUDY: 01/07/2017 TECHNIQUE: Following the IV administration of 90 mL of Optiray-320, CT angiogram of the thorax was performed from the thoracic inlet to the lung bases utilizing the pulmonary embolus protocol. Images are reviewed in the axial, sagittal, and coronal planes. IV contrast was administered without complication. MIP imaging was performed. A dose lowering technique was utilized adhering to the principles of ALARA. CT DOSE: 219.78 mGy.cm FINDINGS: Visualization of the upper abdomen reveals large bilateral renal calculi. There is a small to moderate pericardial effusion. No pathologically enlarged axillary mediastinal or hilar lymph nodes were visualized. There was no evidence of thoracic aortic dilatation. There were no pulmonary artery filling defects to indicate acute pulmonary embolism. No pleural effusions are visualized. There is severe pulmonary emphysema involving the left lower lobe with near total destruction of lung parenchyma. The left lower lobe is expanded. There is right lower lobe bronchial wall thickening and mucous plugging. There is a stable 5 mm right lower lobe pulmonary nodule. IMPRESSION: 1. No CT evidence of acute pulmonary embolism 2. Right lower lobe bronchial wall thickening and mucous plugging 3. Severe pulmonary emphysema 4. Stable 5 mm right lower lobe pulmonary nodule EKG EKG 02/07/2017 Normal sinus rhythm, ventricular rate 97 bpm Possible Left atrial enlargement Borderline ECG When compared with ECG of 03-FEB-2017 17:47, No significant change was found Impression Assessment and Plan Acute on chronic hypoxic hypercapnic respiratory failure Very severe COPD with exacerbation h/o recent pulmonary embolus on Xarelto Type III pulmonary hypertension Anxiety/depression Pulmonary nodule Ms. Wyatt has acute on chronic hypoxic hypercapnic respiratory failure with COPD exacerbation. She has received morphine 8 mg in the span of 2 hours for right chest and back pain. Now hypercapnic with respiratory acidosis. Mucus plugging seen on last CT. She is quite somnolent. Recommend Continue with supplemental oxygenation to keep a SaO2 between 88-92%. However I feel that BIPAP is warranted at this time. I have ordered an ABG.Give Narcan remains if she remains somnolent. Give her azithromycin 250 mg daily for anti-inflammatory purposes. She may benefit from try weekly therapy as an outpatient to reduce the risk of the exacerbation. I will add mucomyst 600 mg BID to her current regimen I do agree with Solu-Medrol IV, but recommend decreasing to lower dose of 40 mg every 8 hours. Continue with Spiriva. Continue with Symbicort. Continue with other nebulizers q4-6. Will add mucomyst inhalation 3 ml BID, flutter valve for aggressive pulmonary toilet. Send sputum cultures. Continue Xarelto for PE/DVT treatment. Continue with pain meds, however be judicious as she is a CO2 retainer. Continue with incentive spirometry when she is more alert. Pulmonary nodule--stable, she should have interval follow up with Dr. Rabago. She should be transferred to ICU for closer monitoring. I appreciate the consult and will continue to follow her closely.
[2017-02-07] MEDS ORDERED: AZITHROMYCIN 250 MG TAB PO ONE (18:30)
[2017-02-07 19:02] LABS: ARTERIAL BLD GAS O2 SATURATION 93.5 % (90-95); ARTERIAL BLOOD GAS BASE EXCESS 6.6 mEq/L (-9-1.8); ARTERIAL BLOOD GAS HCO3 37 mmol/L (19-24); ARTERIAL BLOOD GAS PO2 82 mm/Hg (80-95); ARTERIAL BLOOD GAS pH 7.21 (7.35-7.45)
[2017-02-07 19:03] LABS: ALLEN TEST POS (POS); O2 ADMINISTRATION 40% FIO2
[2017-02-07] MEDS: ACETYLCYSTEINE 20% INHAL SOLN ***DISPENSED BY RESP. INH SCH (20:00)
[2017-02-07] MEDS: LEVALBUTEROL/IPRATROPIUM NEB INH SCH (20:48)
[2017-02-07] MEDS ORDERED: ACETYLCYSTEINE 20% INHAL SOLN ***DISPENSED BY RESP. INH SCH (21:00)
--- NOTE | 2017-02-07 21:05 | Critical Care Consultation ---
Critical Care Consultation Date of Consultation: Feb 07, 2017. Attending Physician: Jacobo Damico MD, PhD Reason for Consultation: Acute Hypoxic Respiratory Failure History of Present Illness The patient is a 71-year-old female with a past medical history of COPD, pulmonary embolus diagnosed on 01/07, chronic respiratory failure, anxiety, kidney stones and depression who presented to the emergency department this morning with shortness of breath and chest pain. She has been having this ongoing chest pain for the last 3 weeks and the pain has been radiating to her back. During this time she has also been having worsening shortness of breath including dyspnea on exertion despite being on 2.5 L of nasal cannula at home. She has also been having a nonproductive cough, wheezing, weakness, and fatigue. The patient is currently on Xarelto for her recent PE. The ICU team was called to the patient's room this afternoon due to worsening respiratory status, very shallow breaths with a low respiratory rate, and hypoxia requiring BiPAP therapy. Once placed on BiPAP the patient's respiratory rate improved as did her oxygen saturation. We felt it appropriate to transfer the patient to the ICU for closer monitoring. At this time the patient is full resuscitation with no mechanical ventilation. Past Medical/Surgical History COPD, pulmonary embolus diagnosed on 01/07, chronic respiratory failure, anxiety , kidney stones, depression Family History Gallbladder disease Heart disease Hypertension Kidney disease Kidney stones Lung disease Ovarian cancer Social History Smoking Status: Former Smoker (quit 2013) Smokeless Tobacco Use: No Alcohol Use: none Drug Use: none Marital Status: Housing Status: unknown Occupation Status: retired Allergies Coded Allergies: Sulfa Antibiotics (Verified Allergy, Unknown, hives, 02/07/17) Doxycycline (Verified Adverse Reaction, Unknown, n/v, 02/07/17) Escitalopram (Verified Adverse Reaction, Unknown, n/v, 02/07/17) Home Medications Scheduled Budesonide/Formoterol Fumarate (Symbicort 160/4.5 Inhaler ), 2 PUFFS INH BID Chlordiazepoxide (Chlordiazepoxide HCl), 25 MG PO DAILY Citalopram Hydrobromide (Celexa), 20 MG PO DAILY Home O2 Therapy (Oxygen), 2.5 LITERS NA CONTINOUS Multiple Vitamin (Multivitamin), 1 TAB PO DAILY Prednisone (Prednisone), 5 MG PO DAILY Rivaroxaban (Xarelto), 1 TAB PO DAILY Tiotropium Washta (Spiriva Handihaler), 1 PUFF INH DAILY Scheduled PRN Albuterol Hfa (Ventolin Hfa), 2 PUFFS INH Q6H PRN for SOB/Wheezing Ipratropium-Albuterol (Duoneb), 3 ML INH Q4H PRN for SOB/Wheezing Current Inpatient Medications Current Inpatient Medications Medications (Trade) Dose Ordered Sig/Khalida Route Start Time Stop Time Status Last Admin Dose Admin Acetaminophen (Tylenol Tab) 650 mg Q4H PRN PO 02/07/17 15:15 03/09/17 15:14 Al Hydrox/Mg Hydrox/Simethicone (Maalox Max Susp) 15 ml Q4H PRN PO 02/07/17 15:15 03/09/17 15:14 Magnesium Hydroxide (Milk Of Magnesia Susp) 30 ml Q12H PRN PO 02/07/17 15:15 03/09/17 15:14 Ondansetron HCl (Zofran Inj) 4 mg Q6H PRN IV 02/07/17 15:15 03/09/17 15:14 Polyethylene (Miralax Powder Packet) 17 gm DAILY PRN PO 02/07/17 15:15 03/09/17 15:14 Methylprednisolone Sodium Succinate 80 mg/Syringe 1.28 ml @ 1.5 mls/min Q8H IV 02/07/17 22:00 03/09/17 21:59 Miscellaneous (Xopenex/ Atrovent Neb) 1 ea Q6R INH 02/07/17 21:00 03/09/17 20:59 Budesonide/ Formoterol Fumarate (Symbicort 160/ 4.5 Inh) 2 puffs BID INH 02/07/17 21:00 03/09/17 20:59 Citalopram Hydrobromide (celeXA TAB) 20 mg DAILY PO 02/08/17 09:00 03/10/17 08:59 Multivitamins (Multivitamin Tab) 1 tab DAILY PO 02/08/17 09:00 03/10/17 08:59 Rivaroxaban (Xarelto Tab) 20 mg DAILY PO 02/08/17 09:00 03/10/17 08:59 Chlordiazepoxide (Librium Cap) 25 mg DAILY PO 02/08/17 09:00 03/10/17 08:59 Acetylcysteine (Acetylcysteine Cap) 600 mg BID PO 02/07/17 21:00 03/09/17 20:59 Azithromycin (Zithromax Tab) 250 mg QAM PO 02/08/17 09:00 02/15/17 08:59 Acetylcysteine (Mucomyst 20% Inh Soln) 3 ml BIDR INH 02/07/17 20:00 03/09/17 19:59 Review of Systems Patient currently on BiPAP and drowsy so difficult to obtain full review of systems Constitutional: No fever, No chills, No weakness, No fatigue Respiratory: No cough, No sputum, No wheezing, No shortness of breath, No dyspnea on exertion Cardiovascular: No chest pain, No palpitations Abdomen: No pain, No nausea, No vomiting, No diarrhea, No constipation Genitourinary - Female: No dysuria Physical Exam Date Time Temp Pulse Resp B/P (MAP) Pulse Ox O2 Delivery O2 Flow Rate FiO2 02/07/17 18:32 36.8 104 97 02/07/17 18:11 36.8 108 8 101/67 97 BiPAP 40 02/07/17 18:00 36.8 108 8 101/67 (78) 97 BiPAP 40 02/07/17 17:54 107 97 40 02/07/17 17:29 36.8 108 18 109/68 (82) 92 2.0 02/07/17 15:52 112 18 133/66 94 Nasal Cannula 4.0 02/07/17 14:56 37.0 107 16 122/66 94 Nasal Cannula 4.0 02/07/17 14:07 88 16 94 Nasal Cannula 4.0 02/07/17 13:46 105 02/07/17 13:45 104 22 101/69 97 Nasal Cannula 4.0 02/07/17 13:32 90 Nasal Cannula 4.0 02/07/17 13:32 90 Nasal Cannula 4.0 02/07/17 13:14 74 Nasal Cannula 2.5 02/07/17 13:14 37.0 111 22 139/77 76 Nasal Cannula 2.5 General Appearance: mild distress, thin Head: normocephalic, atraumatic Eyes: sclerae normal, conjunctivae normal Neck: trachea midline, no stridor Respiratory: no tenderness, other (decreased breath sounds) Cardiovasular: regular rate/rhythm, normal S1S2, no M/G/R Abdomen: non tender, normal bowel sounds Pulses: radial (R) (2+), radial (L) (2+) Neuro: lethargic Laboratory Results Last 24 Hours Test 02/07/17 13:35 02/07/17 13:47 02/07/17 13:50 02/07/17 13:51 White Blood Count 10.10 K/uL Red Blood Count 3.56 M/uL Hemoglobin 10.9 g/dL Hematocrit 34.9 % Mean Corpuscular Volume 98.0 fL Mean Corpuscular Hemoglobin 30.6 pg Mean Corpuscular Hemoglobin Concent 31.2 g/dl Platelet Count 280 K/uL Mean Platelet Volume 10.9 fL Neutrophils (%) (Auto) 88.6 % Lymphocytes (%) (Auto) 7.2 % Monocytes (%) (Auto) 3.6 % Eosinophils (%) (Auto) 0.1 % Basophils (%) (Auto) 0.2 % Neutrophils # (Auto) 8.95 K/uL Lymphocytes # (Auto) 0.73 K/uL Monocytes # (Auto) 0.36 K/uL Eosinophils # (Auto) 0.01 K/uL Basophils # (Auto) 0.02 K/uL RDW Standard Deviation 45.5 fL RDW Coefficient of Variation 12.7 % Immature Granulocyte % (Auto) 0.3 % Immature Granulocyte # (Auto) 0.03 K/uL Prothrombin Time 9.6 SECONDS Prothromb Time International Ratio 0.9 Activated Partial Thromboplast Time 25.9 SECONDS Partial Thromboplastin Ratio 1.0 Sodium Level 132 mmol/L Potassium Level 4.1 mmol/L Chloride Level 93 mmol/L Carbon Dioxide Level 36 mmol/L Anion Gap 3.0 mmol/L 12.0 mmol/L Blood Urea Nitrogen 22 mg/dl Creatinine 1.09 mg/dl Est Creatinine Clear Calc Drug Dose 31.2 ml/min Estimated GFR () 58.3 Estimated GFR (Non- 50.3 BUN/Creatinine Ratio 20.4 Random Glucose 150 mg/dl Calcium Level 10.6 mg/dl Total Bilirubin 0.3 mg/dl Aspartate Amino Transf (AST/SGOT) 22 U/L Alanine Aminotransferase (ALT/SGPT) 24 U/L Alkaline Phosphatase 112 U/L Total Creatine Kinase 24 U/L Creatine Kinase MB 1.2 ng/ml Creatine Kinase MB Ratio 5.0 Troponin I < 0.015 ng/ml Total Protein 7.4 gm/dl Albumin 3.6 gm/dl Globulin 3.8 gm/dl Albumin/Globulin Ratio 0.9 Venous Blood pH 7.32 Venous Blood Partial Pressure CO2 77 mmHg Venous Blood Partial Pressure O2 29 mmHg Venous Blood HCO3 39 mmol/L Venous Blood Oxygen Saturation < 60.0 % Venous Blood Base Excess 10.0 mEq/L Bedside Hemoglobin 11.9 g/dl Bedside Hematocrit 35 % Bedside Sodium 133 mEq/L Bedside Potassium 4.2 mEq/L Bedside Chloride 89 mEq/L Bedside Total CO2 37 mEq/l Bedside Blood Urea Nitrogen 23 mg/dl Bedside Creatinine 1.1 mg/dl Bedside Glucose (other) 160 mg/dl Bedside Ionized Calcium (Jerry) 1.41 mmol/l Bedside D-Dimer 328 ng/mlFEU Test 02/07/17 18:36 02/07/17 18:40 Lactic Acid Level 1.2 mmol/L Arterial Blood pH 7.21 Arterial Blood Partial Pressure CO2 94 mmHg Arterial Blood Partial Pressure O2 82 mm/Hg Arterial Blood HCO3 37 mmol/L Arterial Blood Oxygen Saturation 93.5 % Arterial Blood Base Excess 6.6 mEq/L Arterial Blood Gas Delivery 40% FIO2 Arvind Test POS Assessment & Plan Patient is a 71 year old female that presents to the ICU with worsening respiratory status Neuro: - CAM ICU Positive - Currently lethargic when evaluated --> AMS possibly related to 4mg Morphine patient received - Mental status improving now that narcotic is wearing off - History of depression and anxiety - Continue home Celexa 20mg - Continue home Librium 25mg Resp: Patient transferred to ICU for COPD Exacerbation with worsening respiratory status requiring BIPAP (On home 2.5L Oxygen chronically) - Patient respiratory and mental status significantly improved with BIPAP therapy - Currently on home 2.5L of oxygen and saturating well - Repeat ABG and End Tidal CO2 - Initial ABG on Admission . - ABG on transfer to ICU - - Patient is DO NOT INTUBATE - Azithromycin - Methylprednisolone - Xopenex/ Atrovent - Symbicort - Acetylcysteine CV: - Hemodynamically stable - Monitor on telemetry Fluids/Renal: - Creatinine Stable - Mildly hyponatremic - Tolerating PO intake - Daily BMP Endocrine: - No history of Diabetes or Thyroid disease ID: - Azithromycin for COPD exacerbation - No Leukocytosis Heme: - Hgb 10.9 --> Baseline - Daily H/H - Xarelto 20mg --> Recent PE DVT Prophylaxis: - Xarelto Code Status: Full Resuscitation Resident Physician Supervision Note: Dr. Alonso was resident physician during care of patient. I separately evaluated patient and did history and exam. I discussed the case with the resident and generally agree with the findings and plan. During my initial evaluation the patient was definitely drowsy, I suspect that she has a baseline acute kidney injury given the magnitude of increase in her creatinine and the narcotic administration in the emergency department likely is contributing to some somnolence. She is tolerating her noninvasive ventilation, she has a compensated chronic respiratory acidosis. I had an extensive discussion with the patient's daughter regarding her CODE STATUS. She has expressed that her mother would not want to go heroic measures including CPR in the setting of cardiac arrest. Accordingly we made her a DO NOT RESUSCITATE in event of cardiac arrest. Patient has improved over able to lift greater from the noninvasive ventilation and she is tolerating her nasal cannula at this time. We will continue to treat her as a severe COPD exacerbation. I have not excluded the possibility of urinary pathology, she has known staghorn calculi bilaterally as well as a presumptive chronic hydronephrosis. Documented By: Sammy Weathers DO Resident Tracking Resident Involvement: Resident Care Provided Care Provided: Adult Hospital Medicine
[2017-02-07] MEDS: BUDESONIDE/FORMOTEROL FUMARATE 160/4.5 60 PUFFS/INHALER INH SCH (21:16)
[2017-02-07] MEDS ORDERED: NURSING VERBAL MED ORDER ONE (21:45)
[2017-02-07] MEDS ORDERED: RIVAROXABAN 20 MG TAB PO ONE (22:15)
[2017-02-07 22:32] LABS: URINE APPEARANCE CLOUDY (CLEAR); URINE BILIRUBIN NEG (NEG); URINE EPITHELIAL CELL AUTO >30 /lpf (0-5); URINE NITRITE NEG (NEG); URINE PH 5.5 (4.5-7.5); URINE SPECIFIC GRAVITY 1.019 (1.000-1.030); UROBILINOGEN NEG (NEG)
[2017-02-07 22:38] LABS: MANUAL MICROSCOPIC REQUIRED? NO; REVIEW REQ? YES; URINE COLOR BROWN
[2017-02-07] MEDS: METHYLPREDNISOLONE IV 80 MG in SYRINGE 0 ML IV SCH (22:52)
[2017-02-07] MEDS: ACETYLCYSTEINE 600 MG CAP PO SCH (23:01)
[2017-02-07] MEDS ORDERED: PIPERACILL/TAZOBAC IV 3.375 GM in DEXTROSE 5% 100ML 100 ML IV ONE (23:45)
[2017-02-08] VITALS (23 sets, daily range): BP systolic 91–102; BP diastolic 51–67; PULSE 85–103; TEMP 36.6–37; O2SAT 88–100
[2017-02-08] MEDS ORDERED: VANCOMYCIN INJ 1,000 MG in SODIUM CHLORIDE 0.9% 250ML 250 ML IV ONE (00:45)
[2017-02-08] MEDS ORDERED: VANCOMYCIN CONSULT ACTIVE PRN (00:45)
[2017-02-08] MEDS ORDERED: PIPERACILL/TAZOBAC CONSULT ACTIVE PRN (00:45)
[2017-02-08] MEDS: LEVALBUTEROL/IPRATROPIUM NEB INH SCH ×4 (01:41→19:05)
[2017-02-08 05:48] LABS: VEN BLOOD GAS BASE EXCESS 6.9 mEq/L; VENOUS BLOOD GAS PCO2 76 mmHg (38.0-50.0); VENOUS BLOOD GAS PO2 26 mmHg
[2017-02-08 05:53] LABS: VEN BLD GAS O2 SATURATION < 60.0 %
[2017-02-08] MEDS ORDERED: PIPERACILL/TAZOBAC IV 3.375 GM in DEXTROSE 5% 100ML 100 ML IV SCH (06:00)
[2017-02-08] MEDS: METHYLPREDNISOLONE IV 80 MG in SYRINGE 0 ML IV SCH (06:00)
[2017-02-08 06:16] LABS: BLOOD UREA NITROGEN 24 mg/dl (7-18); BUN/CREATININE RATIO 23.2 (10-20); CALCIUM 9.6 mg/dl (8.5-10.1); CARBON DIOXIDE 36 mmol/L (21-32); CHLORIDE 96 mmol/L (98-107); CREATININE 1.02 mg/dl (0.60-1.20); GLUCOSE 133 mg/dl (70-99); MAGNESIUM 1.9 mg/dl (1.8-2.4); PHOSPHORUS 3.2 mg/dl (2.5-4.9); POTASSIUM 5.2 mmol/L (3.5-5.1); SODIUM 134 mmol/L (136-145)
[2017-02-08 07:01] LABS: HEMATOCRIT 30.8 % (37-47); MEAN CELL VOLUME 97.2 fL (80-100); MEAN CORPUSCULAR HEMOGLOBIN 30.6 pg (25-34); MEAN CORPUSCULAR HGB CONC 31.5 g/dl (32-36); MEAN PLATELET VOLUME 10.9 fL (7.4-10.4); PLATELET COUNT 243 K/uL (130-400); RED BLOOD COUNT 3.17 M/uL (4.2-5.4); WHITE BLOOD COUNT 3.76 K/uL (4.8-10.8)
[2017-02-08] MEDS: ACETYLCYSTEINE 20% INHAL SOLN ***DISPENSED BY RESP. INH SCH ×2 (07:25→19:05)
[2017-02-08] MEDS: BUDESONIDE/FORMOTEROL FUMARATE 160/4.5 60 PUFFS/INHALER INH SCH ×2 (07:44→20:15)
[2017-02-08] MEDS: CITALOPRAM 20 MG TAB PO SCH (07:45)
[2017-02-08] MEDS: ACETYLCYSTEINE 600 MG CAP PO SCH ×2 (07:45→20:16)
[2017-02-08] MEDS: MULTIVITAMIN TAB PO SCH (07:45)
[2017-02-08] MEDS: ACETAMINOPHEN 325 MG TAB PO PRN ×2 (07:49→12:21)
[2017-02-08] MEDS ORDERED: CHLORDIAZEPOXIDE 25 MG CAP ONE (07:51)
[2017-02-08] MEDS: CHLORDIAZEPOXIDE 25 MG CAP PO SCH (07:52)
--- NOTE | 2017-02-08 08:12 | Family Medicine Progress Note ---
Progress Note Date of Service Feb 08, 2017. Subjective Pt evaluation today including: conversation w/ patient, conversation w/ family , physical exam, chart review, lab review, review of studies Found patient lying upright in her bed, conversing comfortably with nasal cannula oxygen in place. She has a variety of questions about her current medication regimen. She does not note any current chest pain, SOB, other focal pains, and says that her breathing seems very close to her baseline. No other acute patient concerns. Respiratory: + shortness of breath (baseline), No cough Cardiovascular: No chest pain, No edema Abdomen: No pain, No nausea, No vomiting Medications Current Inpatient Medications Medications (Trade) Dose Ordered Sig/Khalida Route Start Time Stop Time Status Last Admin Dose Admin Acetaminophen (Tylenol Tab) 650 mg Q4H PRN PO 02/07/17 15:15 03/09/17 15:14 02/08/17 07:49 650 MG Al Hydrox/Mg Hydrox/Simethicone (Maalox Max Susp) 15 ml Q4H PRN PO 02/07/17 15:15 03/09/17 15:14 Magnesium Hydroxide (Milk Of Magnesia Susp) 30 ml Q12H PRN PO 02/07/17 15:15 03/09/17 15:14 Ondansetron HCl (Zofran Inj) 4 mg Q6H PRN IV 02/07/17 15:15 03/09/17 15:14 Polyethylene (Miralax Powder Packet) 17 gm DAILY PRN PO 02/07/17 15:15 03/09/17 15:14 Methylprednisolone Sodium Succinate 80 mg/Syringe 1.28 ml @ 1.5 mls/min Q8H IV 02/07/17 22:00 03/09/17 21:59 02/08/17 06:00 1.5 MLS/MIN Miscellaneous (Xopenex/ Atrovent Neb) 1 ea Q6R INH 02/07/17 21:00 03/09/17 20:59 02/08/17 07:25 1 EA Budesonide/ Formoterol Fumarate (Symbicort 160/ 4.5 Inh) 2 puffs BID INH 02/07/17 21:00 03/09/17 20:59 02/08/17 07:44 2 PUFFS Citalopram Hydrobromide (celeXA TAB) 20 mg DAILY PO 02/08/17 09:00 03/10/17 08:59 02/08/17 07:45 20 MG Multivitamins (Multivitamin Tab) 1 tab DAILY PO 02/08/17 09:00 03/10/17 08:59 02/08/17 07:45 1 TAB Chlordiazepoxide (Librium Cap) 25 mg DAILY PO 02/08/17 09:00 03/10/17 08:59 02/08/17 07:52 25 MG Acetylcysteine (Acetylcysteine Cap) 600 mg BID PO 02/07/17 21:00 03/09/17 20:59 02/08/17 07:45 600 MG Azithromycin (Zithromax Tab) 250 mg QAM PO 02/08/17 09:00 02/15/17 08:59 02/08/17 07:46 250 MG Acetylcysteine (Mucomyst 20% Inh Soln) 3 ml BIDR INH 02/07/17 20:00 03/09/17 19:59 02/08/17 07:25 3 ML Rivaroxaban (Xarelto Tab) 20 mg DAILY@2100 PO 02/08/17 21:00 03/10/17 20:59 Piperacillin Sod/ Tazobactam Sod 3.375 gm/Dextrose 115 ml @ 28.75 mls/ hr Q8H IV 02/08/17 06:00 02/18/17 05:59 02/08/17 06:00 28.75 MLS/HR Vancomycin HCl (Consult) 1 ea UD PRN N/A 02/08/17 00:45 03/10/17 00:44 Piperacillin Sod/ Tazobactam Sod (Consult) 1 ea UD PRN N/A 02/08/17 00:45 03/10/17 00:44 Objective Vital Signs Date Time Temp Pulse Resp B/P (MAP) Pulse Ox O2 Delivery O2 Flow Rate FiO2 02/08/17 07:25 88 16 94 Nasal Cannula 4.0 02/08/17 06:00 88 15 102/60 (74) 100 02/08/17 05:00 36.8 89 15 99/58 (72) 99 02/08/17 04:09 95 Nasal Cannula 4.0 02/08/17 04:00 89 15 94/53 (67) 97 02/08/17 03:00 91 15 91/52 (65) 97 02/08/17 02:00 94 15 93/62 (72) 98 02/08/17 01:41 91 16 97 Nasal Cannula 4.0 02/08/17 01:00 93 15 99/59 (72) 96 02/08/17 00:00 95 Nasal Cannula 4.0 02/08/17 00:00 36.6 92 11 102/52 (69) 96 02/07/17 23:00 36.6 93 15 114/68 (83) 96 02/07/17 23:00 93 11 114/68 (83) 96 02/07/17 22:01 103 15 102/42 (62) 89 02/07/17 22:01 103 11 102/42 (62) 89 02/07/17 22:00 102 15 91 02/07/17 22:00 102 15 91 02/07/17 21:00 106 15 99/69 (79) 95 02/07/17 21:00 106 15 99/69 (79) 95 02/07/17 20:50 101 95 40 02/07/17 20:49 101 18 95 BiPAP/CPAP 40 02/07/17 20:00 104 10 103/55 (71) 95 02/07/17 20:00 104 10 103/55 (71) 95 02/07/17 19:39 107 13 103/68 (80) 88 02/07/17 19:39 107 13 103/68 (80) 88 02/07/17 19:00 106 02/07/17 19:00 106 02/07/17 18:32 36.8 104 97 02/07/17 18:11 36.8 108 8 101/67 97 BiPAP 40 02/07/17 18:00 36.8 108 8 101/67 (78) 97 BiPAP 40 02/07/17 17:54 107 97 40 02/07/17 17:29 36.8 108 18 109/68 (82) 92 2.0 02/07/17 15:52 112 18 133/66 94 Nasal Cannula 4.0 02/07/17 14:56 37.0 107 16 122/66 94 Nasal Cannula 4.0 02/07/17 14:07 88 16 94 Nasal Cannula 4.0 02/07/17 13:46 105 02/07/17 13:45 104 22 101/69 97 Nasal Cannula 4.0 02/07/17 13:32 90 Nasal Cannula 4.0 02/07/17 13:32 90 Nasal Cannula 4.0 02/07/17 13:14 74 Nasal Cannula 2.5 02/07/17 13:14 37.0 111 22 139/77 76 Nasal Cannula 2.5 Physical Exam General Appearance: no apparent distress, + cachetic Respiratory/Chest: lungs clear, no respiratory distress, + decreased breath sounds (barrel chest, decreased breath sounds bilaterally), + pertinent finding (long expiratory phase) Cardiovascular: regular rate, rhythm, no murmur Abdomen: normal bowel sounds, non tender, soft Extremities: no pedal edema, no calf tenderness Neurologic/Psychiatric: alert, oriented x 3, + pertinent finding (very lucid, able to accurately name her medications and details quite well) Laboratory Results 02/08/17 05:28 02/08/17 05:28 Test 02/07/17 13:35 02/07/17 13:50 02/07/17 13:51 02/07/17 18:36 Immature Granulocyte % (Auto) 0.3 % White Blood Count 10.10 K/uL (4.8-10.8) Red Blood Count 3.56 M/uL (4.2-5.4) Hemoglobin 10.9 g/dL (12.0-16.0) Hematocrit 34.9 % (37-47) Mean Corpuscular Volume 98.0 fL (80-100) Mean Corpuscular Hemoglobin 30.6 pg (25-34) Mean Corpuscular Hemoglobin Concent 31.2 g/dl (32-36) Platelet Count 280 K/uL (130-400) Mean Platelet Volume 10.9 fL (7.4-10.4) Neutrophils (%) (Auto) 88.6 % Lymphocytes (%) (Auto) 7.2 % Monocytes (%) (Auto) 3.6 % Eosinophils (%) (Auto) 0.1 % Basophils (%) (Auto) 0.2 % Neutrophils # (Auto) 8.95 K/uL (1.4-6.5) Lymphocytes # (Auto) 0.73 K/uL (1.2-3.4) Monocytes # (Auto) 0.36 K/uL (0.11-0.59) Eosinophils # (Auto) 0.01 K/uL (0-0.5) Basophils # (Auto) 0.02 K/uL (0-0.2) Immature Granulocyte # (Auto) 0.03 K/uL (0.00-0.02) Prothrombin Time 9.6 SECONDS (9.0-12.0) Prothromb Time International Ratio 0.9 (0.9-1.1) Activated Partial Thromboplast Time 25.9 SECONDS (21.0-31.0) Partial Thromboplastin Ratio 1.0 Total Bilirubin 0.3 mg/dl (0.2-1) Aspartate Amino Transf (AST/SGOT) 22 U/L (15-37) Alanine Aminotransferase (ALT/SGPT) 24 U/L (12-78) Alkaline Phosphatase 112 U/L (45-117) Total Creatine Kinase 24 U/L (26-192) Creatine Kinase MB 1.2 ng/ml (0.5-3.6) Creatine Kinase MB Ratio 5.0 (0-3.0) Total Protein 7.4 gm/dl (6.4-8.2) Albumin 3.6 gm/dl (3.4-5.0) Globulin 3.8 gm/dl (2.5-4.0) Albumin/Globulin Ratio 0.9 (0.9-2) Bedside Hemoglobin 11.9 g/dl (12.0-16.0) Bedside Hematocrit 35 % (37-47) Bedside Sodium 133 mEq/L (135-144) Bedside Potassium 4.2 mEq/L (3.3-5.0) Bedside Chloride 89 mEq/L (101-112) Bedside Total CO2 37 mEq/l (24-31) Bedside Blood Urea Nitrogen 23 mg/dl (7-18) Bedside Creatinine 1.1 mg/dl (0.6-1.3) Bedside Glucose (other) 160 mg/dl (70-99) Bedside Ionized Calcium (Jerry) 1.41 mmol/l (1.12-1.32) Bedside D-Dimer 328 ng/mlFEU (0-450) Lactic Acid Level 1.2 mmol/L (0.4-2.0) Test 02/07/17 18:40 02/07/17 21:49 02/08/17 05:28 02/08/17 05:32 Arterial Blood pH 7.21 (7.35-7.45) Arterial Blood Partial Pressure CO2 94 mmHg (35-46) Arterial Blood Partial Pressure O2 82 mm/Hg (80-95) Arterial Blood HCO3 37 mmol/L (19-24) Arterial Blood Oxygen Saturation 93.5 % (90-95) Arterial Blood Base Excess 6.6 mEq/L (-9-1.8) Arterial Blood Gas Delivery 40% FIO2 Arvind Test POS (POS) Procalcitonin 6.90 ng/ml (0-0.5) Red Blood Count 3.17 M/uL (4.2-5.4) Mean Corpuscular Volume 97.2 fL (80-100) Mean Corpuscular Hemoglobin 30.6 pg (25-34) Mean Corpuscular Hemoglobin Concent 31.5 g/dl (32-36) RDW Standard Deviation 43.4 fL (36.4-46.3) RDW Coefficient of Variation 12.2 % (11.5-14.5) Mean Platelet Volume 10.9 fL (7.4-10.4) Venous Blood pH 7.29 (7.36-7.41) Venous Blood Partial Pressure CO2 76 mmHg (38.0-50.0) Venous Blood Partial Pressure O2 26 mmHg Venous Blood HCO3 35 mmol/L Venous Blood Oxygen Saturation < 60.0 % Venous Blood Base Excess 6.9 mEq/L Anion Gap 2.0 mmol/L (3-11) Est Creatinine Clear Calc Drug Dose 33.3 ml/min Estimated GFR () 63.2 Estimated GFR (Non- 54.5 BUN/Creatinine Ratio 23.2 (10-20) Calcium Level 9.6 mg/dl (8.5-10.1) Phosphorus Level 3.2 mg/dl (2.5-4.9) Magnesium Level 1.9 mg/dl (1.8-2.4) Troponin I < 0.015 ng/ml (0-0.045) Bedside Glucose 147 mg/dl (70-90) Assessment and Plan Ms. Wyatt is a 71 yo female with a PMH of severe COPD, recent PE () on Xarelto, chronic respiratory failure, hematuria and renal stone issues, and depression / anxiety admitted on [id number] for worsening shortness of breath and right chest pain. Acute on chronic respiratory failure (COPD exacerbation), history of Type III pulm HTN - Regularly on 2.5L NC at home. Follows Dr. Rabago as outpt. Admitted with SpO2 around 74%. - pCXR notes no acute change but baseline severe emphysematous change. - BCx x 2 pending. - sputum cultures ordered. - was transferred to ICU due to shallow breathing and hypoxia, requiring a couple hours of BiPAP therapy, and noted improvement with the same. Transitioned quickly back to oxygen via NC. Source suspected related to morphine given for her chest pain. Planned transfer back to medicine floor on . - Pulmonology onboard, please see their rec's. Attempted consolidation: --- Goal SaO2 88-92%. --- Started azithromycin 250 daily, consider "try weekly" therapy. --- Started mucomyst 600 mg PO BID. Also on same INH BID as inpatient. --- Continuing home Symbicort 2 puffs BID, Spiriva 1 puff daily. --- At home was on prednisone 5 mg daily. Started on solumedrol IV q8h as inpatient, initially 80 mg then decreased to 40 mg. --- Judicious pain med use due to CO2 retention. Narcan prn if too somnolent. Use of IS while alert. Right-sided chest pain - Trended troponin q8h x 3, all negative. EKG showed no ischemic changes. pCXR showed no acute changes (as above). - Suspect pain is MSK in origin. At home she is on Tramadol 50 mg PO q4h prn pain. Held as inpatient due to some ? somnolence initially. - 07Jan2017 TTE: LVEF 65-70%. No clear evidence of tamponade. No regional wall motion abnormalities. Compared with prior study on 12/16/2013: Pericardial effusion has increased minimally. PH now mild to moderate. Recent PE diagnosed 07Jan2017 -Continue Xarelto 20 daily. Hematuria / Decreased Drug CrCl - Recent [facility] admission -18Jan2017 for hematuria s/p starting Xarelto for her dx of PE. CT noted staghorn stones & left ureter lesion, cystoscopy was deferred due to hematuria. Urology had recommended referral for PCNL of staghorn stones at [facility]. [facility] recommends remaining on anticoagulation for six months before they would consider intervening. - UCx pending. - 09Dec started on Levaquin 750 mg PO q48h (renal dosing) in case of UTI (has elevated procalcitonin). - 09Dec present Cr 1.02 but Cr Clr for medications is 33.3, thought to be low due to patient's low body weight. Labs / Misc: - 08Dec nasal MRSA negative. 09Dec influenza PCR negative. - Pulmonary nodules: See on prior CTA. Outpt follow up for same. - Hyperparathyroidism: Outpt follow up. - Depression/anxiety: Continue Librium 25 mg PO daily, Celexa 20 mg PO daily Code status: DO NOT RESUSCITATE (DNR) DVT prophylaxis: Xarelto + CRISTIAN hose + SCDs Disposition: Pending. Reportedly lives alone, retired, . Family in area (and visiting in hospital). Resident Physician Supervision Note: I was present with Dr. Rapp during the history and exam. I discussed the case with the resident and agree with the findings and plan as documented in the note. Any exceptions or clarifications are listed here:71 y/o female admitted with COPD exacerbation, acute decompensation thought secondary to opioid-induced somnolence that led to her transfer to ICU yesterday. She has returned to her baseline this morning. Agree with transfer to telemetry pending bed availability. Documented By: Fran Lemos Resident Tracking Resident Involvement: Resident Care Provided (inpt rounds) Care Provided: Adult Hospital Medicine
[2017-02-08] MEDS ORDERED: CHLORDIAZEPOXIDE 25 MG CAP PO SCH (09:00)
[2017-02-08] MEDS ORDERED: AZITHROMYCIN 250 MG TAB PO SCH (09:00)
[2017-02-08] MEDS ORDERED: RIVAROXABAN 20 MG TAB PO SCH (09:00)
[2017-02-08] MEDS: LEVOFLOXACIN 750 MG TAB PO SCH (10:26)
--- NOTE | 2017-02-08 12:16 | Pulmonology Progress Note ---
Pulmonary Progress Note Date of Service Feb 08, 2017. Attending Dr. Ny Subjective Patient seen and examined. She states that she's feeling a little bit better today. Was admitted overnight to ICU for observation likely secondary to metabolic encephalopathy due to hypercarbic respiratory failure. She tolerated BiPAP well overnight and is more alert today. She was made DO NOT RESUSCITATE overnight. Objective Vital signs reviewed. MAXIMUM TEMPERATURE 37, BP 91/52-102/60, pulse 85-94, respiratory rate 4-16, pulse oximetry 92-100% on 3 L nasal cannula. Gen.: Awake alert oriented 3, no acute respiratory distress. Speaking in full sentences. CVS: S1-S2, rate and rhythm Lungs: Barrel chested, decreased breath sounds bilaterally Abdomen: Soft, nontender, nondistended, bowel sounds positive Extremities: No cyanosis, no clubbing, no peripheral edema noted bilaterally in lower extremities. Labs reviewed. ABG overnight 7.24/94/82/37/93.5. Repeat VBG 7.29/76/26/35 less than 60% Influenza PCR pending Pro-calcitonin 6.9 Medications reviewed. Imaging reviewed. Assessment & Plan Acute on chronic hypoxic hypercapnic respiratory failure Very severe COPD with exacerbation h/o recent pulmonary embolus on Xarelto Type III pulmonary hypertension Anxiety/depression Pulmonary nodule Ms. Wyatt has acute on chronic hypoxic hypercapnic respiratory failure with COPD exacerbation. Admitted overnight for hypercapnic respiratory failure likely secondary to CO2 narcosis. She still remains with respiratory acidosis but is more alert today. Recommend Continue with supplemental oxygenation to keep a SaO2 between 88-92%. Continue with BiPAP when necessary and at night. Pro-calcitonin elevated today patient switched to Levaquin to treat for possible pneumonia. I do not disagree with this at this time. Content pro- calcitonin, follow-up sputum cultures and discontinue antibiotics pending cultures. She will likely benefit from triweekly azithromycin 250 mg upon discharge Continue with mucomyst 600 mg BID to her current regimen Continue with Solu-Medrol IV, but recommend decreasing to lower dose of 40 mg every 8 hours. Continue with Spiriva. Continue with Symbicort. Continue with other nebulizers q4-6. Will add mucomyst inhalation 3 ml BID, flutter valve for aggressive pulmonary toilet. Follow-up sputum cultures. Continue Xarelto for PE/DVT treatment. Continue with pain meds, however be judicious as she is a CO2 retainer. Continue with incentive spirometry when she is more alert. Pulmonary nodule--stable, she should have interval follow up with Dr. Rabago. Data Medications: Current Inpatient Medications Medications (Trade) Dose Ordered Sig/Khalida Route Start Time Stop Time Status Last Admin Dose Admin Acetaminophen (Tylenol Tab) 650 mg Q4H PRN PO 02/07/17 15:15 03/09/17 15:14 02/08/17 07:49 650 MG Al Hydrox/Mg Hydrox/Simethicone (Maalox Max Susp) 15 ml Q4H PRN PO 02/07/17 15:15 03/09/17 15:14 Magnesium Hydroxide (Milk Of Magnesia Susp) 30 ml Q12H PRN PO 02/07/17 15:15 03/09/17 15:14 Ondansetron HCl (Zofran Inj) 4 mg Q6H PRN IV 02/07/17 15:15 03/09/17 15:14 Polyethylene (Miralax Powder Packet) 17 gm DAILY PRN PO 02/07/17 15:15 03/09/17 15:14 Methylprednisolone Sodium Succinate 80 mg/Syringe 1.28 ml @ 1.5 mls/min Q8H IV 02/07/17 22:00 03/09/17 21:59 02/08/17 06:00 1.5 MLS/MIN Miscellaneous (Xopenex/ Atrovent Neb) 1 ea Q6R INH 02/07/17 21:00 03/09/17 20:59 02/08/17 07:25 1 EA Budesonide/ Formoterol Fumarate (Symbicort 160/ 4.5 Inh) 2 puffs BID INH 02/07/17 21:00 03/09/17 20:59 02/08/17 07:44 2 PUFFS Citalopram Hydrobromide (celeXA TAB) 20 mg DAILY PO 02/08/17 09:00 03/10/17 08:59 02/08/17 07:45 20 MG Multivitamins (Multivitamin Tab) 1 tab DAILY PO 02/08/17 09:00 03/10/17 08:59 02/08/17 07:45 1 TAB Chlordiazepoxide (Librium Cap) 25 mg DAILY PO 02/08/17 09:00 03/10/17 08:59 02/08/17 07:52 25 MG Acetylcysteine (Acetylcysteine Cap) 600 mg BID PO 02/07/17 21:00 03/09/17 20:59 02/08/17 07:45 600 MG Acetylcysteine (Mucomyst 20% Inh Soln) 3 ml BIDR INH 02/07/17 20:00 18 19:59 02/08/17 07:25 3 ML Rivaroxaban (Xarelto Tab) 20 mg DAILY@2100 PO 02/08/17 21:00 03/10/17 20:59 Levofloxacin (Levaquin Tab) 750 mg Q48H PO 02/08/17 09:45 02/10/17 09:46 02/08/17 10:26 750 MG Morphine Sulfate (MoRPHine SULFATE INJ) 1 mg Q4H PRN IV 02/08/17 11:15 02/22/17 11:14 UNV Vital Signs: Date Time Temp Pulse Resp B/P (MAP) Pulse Ox O2 Delivery O2 Flow Rate FiO2 02/08/17 11:46 37.0 88 9 96 3.0 02/08/17 11:00 88 9 94/59 (71) 96 Nasal Cannula 3.0 02/08/17 10:00 87 9 95/55 (68) 98 02/08/17 09:01 85 6 91/54 (66) 97 Nasal Cannula 02/08/17 09:00 91 12 92 02/08/17 08:01 37.0 93 4 92/52 (65) 98 Nasal Cannula 4.0 02/08/17 08:00 90 10 94 02/08/17 08:00 95 Nasal Cannula 4.0 02/08/17 07:25 88 16 94 Nasal Cannula 4.0 02/08/17 07:00 88 5 96/67 (77) 98 02/08/17 06:00 88 15 102/60 (74) 100 02/08/17 05:00 36.8 89 15 99/58 (72) 99 02/08/17 04:09 95 Nasal Cannula 4.0 02/08/17 04:00 89 15 94/53 (67) 97 02/08/17 03:00 91 15 91/52 (65) 97 02/08/17 02:00 94 15 93/62 (72) 98 02/08/17 01:41 91 16 97 Nasal Cannula 4.0 02/08/17 01:00 93 15 99/59 (72) 96 02/08/17 00:00 95 Nasal Cannula 4.0 02/08/17 00:00 36.6 92 11 102/52 (69) 96 02/07/17 23:00 36.6 93 15 114/68 (83) 96 02/07/17 23:00 93 11 114/68 (83) 96 02/07/17 22:01 103 15 102/42 (62) 89 02/07/17 22:01 103 11 102/42 (62) 89 02/07/17 22:00 102 15 91 02/07/17 22:00 102 15 91 02/07/17 21:00 106 15 99/69 (79) 95 02/07/17 21:00 106 15 99/69 (79) 95 02/07/17 20:50 101 95 40 02/07/17 20:49 101 18 95 BiPAP/CPAP 40 02/07/17 20:00 104 10 103/55 (71) 95 02/07/17 20:00 104 10 103/55 (71) 95 02/07/17 19:39 107 13 103/68 (80) 88 02/07/17 19:39 107 13 103/68 (80) 88 02/07/17 19:00 106 02/07/17 19:00 106 02/07/17 18:32 36.8 104 97 02/07/17 18:11 36.8 108 8 101/67 97 BiPAP 40 02/07/17 18:00 36.8 108 8 101/67 (78) 97 BiPAP 40 02/07/17 17:54 107 97 40 02/07/17 17:29 36.8 108 18 109/68 (82) 92 2.0 02/07/17 15:52 112 18 133/66 94 Nasal Cannula 4.0 02/07/17 14:56 37.0 107 16 122/66 94 Nasal Cannula 4.0 02/07/17 14:07 88 16 94 Nasal Cannula 4.0 02/07/17 13:46 105 02/07/17 13:45 104 22 101/69 97 Nasal Cannula 4.0 02/07/17 13:32 90 Nasal Cannula 4.0 02/07/17 13:32 90 Nasal Cannula 4.0 02/07/17 13:14 74 Nasal Cannula 2.5 02/07/17 13:14 37.0 111 22 139/77 76 Nasal Cannula 2.5 Laboratory Results: Last 24 Hours Test 02/07/17 13:35 02/07/17 13:47 02/07/17 13:50 02/07/17 13:51 White Blood Count 10.10 K/uL Red Blood Count 3.56 M/uL Hemoglobin 10.9 g/dL Hematocrit 34.9 % Mean Corpuscular Volume 98.0 fL Mean Corpuscular Hemoglobin 30.6 pg Mean Corpuscular Hemoglobin Concent 31.2 g/dl Platelet Count 280 K/uL Mean Platelet Volume 10.9 fL Neutrophils (%) (Auto) 88.6 % Lymphocytes (%) (Auto) 7.2 % Monocytes (%) (Auto) 3.6 % Eosinophils (%) (Auto) 0.1 % Basophils (%) (Auto) 0.2 % Neutrophils # (Auto) 8.95 K/uL Lymphocytes # (Auto) 0.73 K/uL Monocytes # (Auto) 0.36 K/uL Eosinophils # (Auto) 0.01 K/uL Basophils # (Auto) 0.02 K/uL RDW Standard Deviation 45.5 fL RDW Coefficient of Variation 12.7 % Immature Granulocyte % (Auto) 0.3 % Immature Granulocyte # (Auto) 0.03 K/uL Prothrombin Time 9.6 SECONDS Prothromb Time International Ratio 0.9 Activated Partial Thromboplast Time 25.9 SECONDS Partial Thromboplastin Ratio 1.0 Sodium Level 132 mmol/L Potassium Level 4.1 mmol/L Chloride Level 93 mmol/L Carbon Dioxide Level 36 mmol/L Anion Gap 3.0 mmol/L 12.0 mmol/L Blood Urea Nitrogen 22 mg/dl Creatinine 1.09 mg/dl Est Creatinine Clear Calc Drug Dose 31.2 ml/min Estimated GFR () 58.3 Estimated GFR (Non- 50.3 BUN/Creatinine Ratio 20.4 Random Glucose 150 mg/dl Calcium Level 10.6 mg/dl Total Bilirubin 0.3 mg/dl Aspartate Amino Transf (AST/SGOT) 22 U/L Alanine Aminotransferase (ALT/SGPT) 24 U/L Alkaline Phosphatase 112 U/L Total Creatine Kinase 24 U/L Creatine Kinase MB 1.2 ng/ml Creatine Kinase MB Ratio 5.0 Troponin I < 0.015 ng/ml Total Protein 7.4 gm/dl Albumin 3.6 gm/dl Globulin 3.8 gm/dl Albumin/Globulin Ratio 0.9 Venous Blood pH 7.32 Venous Blood Partial Pressure CO2 77 mmHg Venous Blood Partial Pressure O2 29 mmHg Venous Blood HCO3 39 mmol/L Venous Blood Oxygen Saturation < 60.0 % Venous Blood Base Excess 10.0 mEq/L Bedside Hemoglobin 11.9 g/dl Bedside Hematocrit 35 % Bedside Sodium 133 mEq/L Bedside Potassium 4.2 mEq/L Bedside Chloride 89 mEq/L Bedside Total CO2 37 mEq/l Bedside Blood Urea Nitrogen 23 mg/dl Bedside Creatinine 1.1 mg/dl Bedside Glucose (other) 160 mg/dl Bedside Ionized Calcium (Jerry) 1.41 mmol/l Bedside D-Dimer 328 ng/mlFEU Test 02/07/17 18:36 02/07/17 18:40 02/07/17 21:29 02/07/17 21:49 Lactic Acid Level 1.2 mmol/L Arterial Blood pH 7.21 Arterial Blood Partial Pressure CO2 94 mmHg Arterial Blood Partial Pressure O2 82 mm/Hg Arterial Blood HCO3 37 mmol/L Arterial Blood Oxygen Saturation 93.5 % Arterial Blood Base Excess 6.6 mEq/L Arterial Blood Gas Delivery 40% FIO2 Arvind Test POS Troponin I < 0.015 ng/ml Procalcitonin 6.90 ng/ml Test 02/08/17 05:28 02/08/17 05:32 02/08/17 11:05 White Blood Count 3.76 K/uL Red Blood Count 3.17 M/uL Hemoglobin 9.7 g/dL Hematocrit 30.8 % Mean Corpuscular Volume 97.2 fL Mean Corpuscular Hemoglobin 30.6 pg Mean Corpuscular Hemoglobin Concent 31.5 g/dl RDW Standard Deviation 43.4 fL RDW Coefficient of Variation 12.2 % Platelet Count 243 K/uL Mean Platelet Volume 10.9 fL Venous Blood pH 7.29 Venous Blood Partial Pressure CO2 76 mmHg Venous Blood Partial Pressure O2 26 mmHg Venous Blood HCO3 35 mmol/L Venous Blood Oxygen Saturation < 60.0 % Venous Blood Base Excess 6.9 mEq/L Sodium Level 134 mmol/L Potassium Level 5.2 mmol/L Chloride Level 96 mmol/L Carbon Dioxide Level 36 mmol/L Anion Gap 2.0 mmol/L Blood Urea Nitrogen 24 mg/dl Creatinine 1.02 mg/dl Est Creatinine Clear Calc Drug Dose 33.3 ml/min Estimated GFR () 63.2 Estimated GFR (Non- 54.5 BUN/Creatinine Ratio 23.2 Random Glucose 133 mg/dl Calcium Level 9.6 mg/dl Phosphorus Level 3.2 mg/dl Magnesium Level 1.9 mg/dl Troponin I < 0.015 ng/ml Bedside Glucose 147 mg/dl
[2017-02-08 12:31] LABS: INFLUENZA A PCR Neg for Influ A (NEG); INFLUENZA B PCR Neg for Influ B (NEG)
--- NOTE | 2017-02-08 12:33 | Critical Care Progress Note ---
Critical Care Progress Note Date of Service Feb 08, 2017. ICU Day ICU Day Number: [address] Weathers Subjective Patient is resting comfortably in bed this morning with no acute complaints. She states that her shortness of breath has significantly improved since yesterday evening and she does not recall many of the events of yesterday. She denies any fevers, chills, chest pain, cough, sputum production, diarrhea, dysuria, or headache. Objective GENERAL: Awake, alert, well-appearing, in no distress HENT: Normocephalic, atraumatic. Oropharynx unremarkable. EYES: Normal conjunctiva. Sclera non-icteric. NECK: Supple. No nuchal rigidity. RESPIRATORY: Decreased breath sounds bilaterally, no respiratory distress, good inspiratory effort CARDIAC: Regular rate, normal rhythm. Extremities warm and well perfused. Pulses equal. ABDOMEN: Soft, non-distended. No tenderness to palpation. No rebound or guarding. No masses. RECTAL: Deferred. MUSCULOSKELETAL: Chest examination reveals no tenderness. LOWER EXTREMITIES: Calves are equal size bilaterally and non-tender. No edema. No discoloration. NEURO: Normal sensorium. No sensory or motor deficits noted. SKIN: No rash or jaundice noted. Current SOFA Score SOFA Score Response (Comments) Value Platelets (x10) < 150 1 Bilirubin (mg/dL) < 1.2 0 Chester Coma Score 15 0 Level of Hypotension No Hypotension 0 Creatinine (mg/dL) < 1.2 0 Total 1 Assessment & Plan Patient is a 71 year old female that presents to the ICU with worsening respiratory status Neuro: - CAM ICU negative - Significant improvement in mental status - AMS possibly related to 4mg Morphine patient received --> Decreased dose to 1mg q4h PRN for pain - History of depression and anxiety - Continue home Celexa 20mg - Continue home Librium 25mg Resp: Patient transferred to ICU for COPD Exacerbation with worsening respiratory status requiring BIPAP (On home 2.5L Oxygen chronically) - Patient respiratory and mental status significantly improved after BIPAP therapy - Currently on 4L of oxygen and saturating well - Most recent ABG - chronically compensating picture - 7.29/76/26/35 - ABG on transfer to ICU - 7.21//82/37 - Initial ABG on Admission 7.32//29/39 - Procalcitonin of 6.90 - Patient is DO NOT INTUBATE - Renally dose Levaquin to cover for Bacterial Acute Bronchitis and Complicated UTI - Methylprednisolone - Xopenex/ Atrovent - Symbicort - Acetylcysteine CV: - Hemodynamically stable - Monitor on telemetry Fluids/Renal: - Creatinine Clearance of 33.3 ml/min (BMI 16.3 with Cr of 1.02) - Urine output of 600cc yesterday - Mildly hyponatremic - Tolerating PO intake - Daily BMP Endocrine: - No history of Diabetes or Thyroid disease ID: - Levaquin - renally dose for Cr Clearance of 33.3 - Covering for complicated UTI secondary to nephrolithiasis and Acute Bacterial Bronchitis Heme: - Hgb 9.7 --> Baseline of 11 - Daily H/H - Xarelto 20mg --> Recent PE DVT Prophylaxis: - Xarelto Code Status: Full Resuscitation Resident Physician Supervision Note: Dr. Alonso was resident physician during care of patient. I separately evaluated patient and did history and exam. I discussed the case with the resident and generally agree with the findings and plan. Significant improvement overnight, nasal MRSA swab negative, doubt there is a MRSA infection. Given elevation and procalcitonin we will continue antibiotics. Levaquin chosen for acute exacerbation of chronic bronchitis as well as complicated urinary tract infection. Stable for downgraded out of ICU, anticipate 5 days total treatment length of antibiotics, today is day 2 of 5, mild improvement in patient's acute kidney injury however her creatinine clearance is 31 and I have dose adjusted the Levaquin to 750 mg every 48 hours Documented By: Sammy Weathers DO Consults & Procedures Consultants: None Procedures: None Data Medications: Current Inpatient Medications Medications (Trade) Dose Ordered Sig/Khalida Route Start Time Stop Time Status Last Admin Dose Admin Acetaminophen (Tylenol Tab) 650 mg Q4H PRN PO 02/07/17 15:15 03/09/17 15:14 02/08/17 07:49 650 MG Al Hydrox/Mg Hydrox/Simethicone (Maalox Max Susp) 15 ml Q4H PRN PO 02/07/17 15:15 03/09/17 15:14 Magnesium Hydroxide (Milk Of Magnesia Susp) 30 ml Q12H PRN PO 02/07/17 15:15 03/09/17 15:14 Ondansetron HCl (Zofran Inj) 4 mg Q6H PRN IV 02/07/17 15:15 03/09/17 15:14 Polyethylene (Miralax Powder Packet) 17 gm DAILY PRN PO 02/07/17 15:15 03/09/17 15:14 Methylprednisolone Sodium Succinate 80 mg/Syringe 1.28 ml @ 1.5 mls/min Q8H IV 02/07/17 22:00 03/09/17 21:59 02/08/17 06:00 1.5 MLS/MIN Miscellaneous (Xopenex/ Atrovent Neb) 1 ea Q6R INH 02/07/17 21:00 03/09/17 20:59 02/08/17 07:25 1 EA Budesonide/ Formoterol Fumarate (Symbicort 160/ 4.5 Inh) 2 puffs BID INH 02/07/17 21:00 03/09/17 20:59 02/08/17 07:44 2 PUFFS Citalopram Hydrobromide (celeXA TAB) 20 mg DAILY PO 02/08/17 09:00 03/10/17 08:59 02/08/17 07:45 20 MG Multivitamins (Multivitamin Tab) 1 tab DAILY PO 02/08/17 09:00 03/10/17 08:59 02/08/17 07:45 1 TAB Chlordiazepoxide (Librium Cap) 25 mg DAILY PO 02/08/17 09:00 03/10/17 08:59 02/08/17 07:52 25 MG Acetylcysteine (Acetylcysteine Cap) 600 mg BID PO 02/07/17 21:00 03/09/17 20:59 02/08/17 07:45 600 MG Acetylcysteine (Mucomyst 20% Inh Soln) 3 ml BIDR INH 02/07/17 20:00 03/09/17 19:59 02/08/17 07:25 3 ML Rivaroxaban (Xarelto Tab) 20 mg DAILY@2100 PO 02/08/17 21:00 03/10/17 20:59 Levofloxacin (Levaquin Tab) 750 mg Q48H PO 02/08/17 09:45 02/10/17 09:46 02/08/17 10:26 750 MG Morphine Sulfate (MoRPHine SULFATE INJ) 1 mg Q4H PRN IV 02/08/17 11:15 02/22/17 11:14 UNV Vital Signs: Date Time Temp Pulse Resp B/P (MAP) Pulse Ox O2 Delivery O2 Flow Rate FiO2 02/08/17 11:46 37.0 88 9 96 3.0 02/08/17 11:00 88 9 94/59 (71) 96 Nasal Cannula 3.0 02/08/17 10:00 87 9 95/55 (68) 98 02/08/17 09:01 85 6 91/54 (66) 97 Nasal Cannula 02/08/17 09:00 91 12 92 02/08/17 08:01 37.0 93 4 92/52 (65) 98 Nasal Cannula 4.0 02/08/17 08:00 90 10 94 02/08/17 08:00 95 Nasal Cannula 4.0 02/08/17 07:25 88 16 94 Nasal Cannula 4.0 02/08/17 07:00 88 5 96/67 (77) 98 02/08/17 06:00 88 15 102/60 (74) 100 02/08/17 05:00 36.8 89 15 99/58 (72) 99 02/08/17 04:09 95 Nasal Cannula 4.0 02/08/17 04:00 89 15 94/53 (67) 97 02/08/17 03:00 91 15 91/52 (65) 97 02/08/17 02:00 94 15 93/62 (72) 98 02/08/17 01:41 91 16 97 Nasal Cannula 4.0 02/08/17 01:00 93 15 99/59 (72) 96 02/08/17 00:00 95 Nasal Cannula 4.0 02/08/17 00:00 36.6 92 11 102/52 (69) 96 02/07/17 23:00 36.6 93 15 114/68 (83) 96 02/07/17 23:00 93 11 114/68 (83) 96 02/07/17 22:01 103 15 102/42 (62) 89 02/07/17 22:01 103 11 102/42 (62) 89 02/07/17 22:00 102 15 91 02/07/17 22:00 102 15 91 02/07/17 21:00 106 15 99/69 (79) 95 02/07/17 21:00 106 15 99/69 (79) 95 02/07/17 20:50 101 95 40 12/8/17 20:49 101 18 95 BiPAP/CPAP 40 02/07/17 20:00 104 10 103/55 (71) 95 02/07/17 20:00 104 10 103/55 (71) 95 02/07/17 19:39 107 13 103/68 (80) 88 02/07/17 19:39 107 13 103/68 (80) 88 02/07/17 19:00 106 02/07/17 19:00 106 02/07/17 18:32 36.8 104 97 02/07/17 18:11 36.8 108 8 101/67 97 BiPAP 40 02/07/17 18:00 36.8 108 8 101/67 (78) 97 BiPAP 40 02/07/17 17:54 107 97 40 02/07/17 17:29 36.8 108 18 109/68 (82) 92 2.0 02/07/17 15:52 112 18 133/66 94 Nasal Cannula 4.0 02/07/17 14:56 37.0 107 16 122/66 94 Nasal Cannula 4.0 02/07/17 14:07 88 16 94 Nasal Cannula 4.0 02/07/17 13:46 105 02/07/17 13:45 104 22 101/69 97 Nasal Cannula 4.0 02/07/17 13:32 90 Nasal Cannula 4.0 02/07/17 13:32 90 Nasal Cannula 4.0 02/07/17 13:14 74 Nasal Cannula 2.5 02/07/17 13:14 37.0 111 22 139/77 76 Nasal Cannula 2.5 Laboratory Results: Last 24 Hours Test 02/07/17 13:35 02/07/17 13:47 02/07/17 13:50 02/07/17 13:51 White Blood Count 10.10 K/uL Red Blood Count 3.56 M/uL Hemoglobin 10.9 g/dL Hematocrit 34.9 % Mean Corpuscular Volume 98.0 fL Mean Corpuscular Hemoglobin 30.6 pg Mean Corpuscular Hemoglobin Concent 31.2 g/dl Platelet Count 280 K/uL Mean Platelet Volume 10.9 fL Neutrophils (%) (Auto) 88.6 % Lymphocytes (%) (Auto) 7.2 % Monocytes (%) (Auto) 3.6 % Eosinophils (%) (Auto) 0.1 % Basophils (%) (Auto) 0.2 % Neutrophils # (Auto) 8.95 K/uL Lymphocytes # (Auto) 0.73 K/uL Monocytes # (Auto) 0.36 K/uL Eosinophils # (Auto) 0.01 K/uL Basophils # (Auto) 0.02 K/uL RDW Standard Deviation 45.5 fL RDW Coefficient of Variation 12.7 % Immature Granulocyte % (Auto) 0.3 % Immature Granulocyte # (Auto) 0.03 K/uL Prothrombin Time 9.6 SECONDS Prothromb Time International Ratio 0.9 Activated Partial Thromboplast Time 25.9 SECONDS Partial Thromboplastin Ratio 1.0 Sodium Level 132 mmol/L Potassium Level 4.1 mmol/L Chloride Level 93 mmol/L Carbon Dioxide Level 36 mmol/L Anion Gap 3.0 mmol/L 12.0 mmol/L Blood Urea Nitrogen 22 mg/dl Creatinine 1.09 mg/dl Est Creatinine Clear Calc Drug Dose 31.2 ml/min Estimated GFR () 58.3 Estimated GFR (Non- 50.3 BUN/Creatinine Ratio 20.4 Random Glucose 150 mg/dl Calcium Level 10.6 mg/dl Total Bilirubin 0.3 mg/dl Aspartate Amino Transf (AST/SGOT) 22 U/L Alanine Aminotransferase (ALT/SGPT) 24 U/L Alkaline Phosphatase 112 U/L Total Creatine Kinase 24 U/L Creatine Kinase MB 1.2 ng/ml Creatine Kinase MB Ratio 5.0 Troponin I < 0.015 ng/ml Total Protein 7.4 gm/dl Albumin 3.6 gm/dl Globulin 3.8 gm/dl Albumin/Globulin Ratio 0.9 Venous Blood pH 7.32 Venous Blood Partial Pressure CO2 77 mmHg Venous Blood Partial Pressure O2 29 mmHg Venous Blood HCO3 39 mmol/L Venous Blood Oxygen Saturation < 60.0 % Venous Blood Base Excess 10.0 mEq/L Bedside Hemoglobin 11.9 g/dl Bedside Hematocrit 35 % Bedside Sodium 133 mEq/L Bedside Potassium 4.2 mEq/L Bedside Chloride 89 mEq/L Bedside Total CO2 37 mEq/l Bedside Blood Urea Nitrogen 23 mg/dl Bedside Creatinine 1.1 mg/dl Bedside Glucose (other) 160 mg/dl Bedside Ionized Calcium (Jerry) 1.41 mmol/l Bedside D-Dimer 328 ng/mlFEU Test 02/07/17 18:36 02/07/17 18:40 02/07/17 21:29 02/07/17 21:49 Lactic Acid Level 1.2 mmol/L Arterial Blood pH 7.21 Arterial Blood Partial Pressure CO2 94 mmHg Arterial Blood Partial Pressure O2 82 mm/Hg Arterial Blood HCO3 37 mmol/L Arterial Blood Oxygen Saturation 93.5 % Arterial Blood Base Excess 6.6 mEq/L Arterial Blood Gas Delivery 40% FIO2 Arvind Test POS Troponin I < 0.015 ng/ml Procalcitonin 6.90 ng/ml Test 02/08/17 05:28 02/08/17 05:32 02/08/17 11:05 White Blood Count 3.76 K/uL Red Blood Count 3.17 M/uL Hemoglobin 9.7 g/dL Hematocrit 30.8 % Mean Corpuscular Volume 97.2 fL Mean Corpuscular Hemoglobin 30.6 pg Mean Corpuscular Hemoglobin Concent 31.5 g/dl RDW Standard Deviation 43.4 fL RDW Coefficient of Variation 12.2 % Platelet Count 243 K/uL Mean Platelet Volume 10.9 fL Venous Blood pH 7.29 Venous Blood Partial Pressure CO2 76 mmHg Venous Blood Partial Pressure O2 26 mmHg Venous Blood HCO3 35 mmol/L Venous Blood Oxygen Saturation < 60.0 % Venous Blood Base Excess 6.9 mEq/L Sodium Level 134 mmol/L Potassium Level 5.2 mmol/L Chloride Level 96 mmol/L Carbon Dioxide Level 36 mmol/L Anion Gap 2.0 mmol/L Blood Urea Nitrogen 24 mg/dl Creatinine 1.02 mg/dl Est Creatinine Clear Calc Drug Dose 33.3 ml/min Estimated GFR () 63.2 Estimated GFR (Non- 54.5 BUN/Creatinine Ratio 23.2 Random Glucose 133 mg/dl Calcium Level 9.6 mg/dl Phosphorus Level 3.2 mg/dl Magnesium Level 1.9 mg/dl Troponin I < 0.015 ng/ml Bedside Glucose 147 mg/dl Resident Tracking Resident Involvement: Resident Care Provided Care Provided: Adult Hospital Medicine
[2017-02-08] MEDS ORDERED: NURSING VERBAL MED ORDER ONE (12:45)
[2017-02-08] MEDS ORDERED: ACETAMINOPHEN 325 MG TAB PO ONE (13:00)
[2017-02-08] MEDS: MoRPHine SULFATE 2 MG/ML CARP IV PRN ×2 (14:18→20:15)
[2017-02-08] MEDS: METHYLPREDNISOLONE IV 40 MG in SYRINGE 0 ML IV SCH ×2 (14:51→21:46)
[2017-02-08] MEDS: ACETAMINOPHEN 500 MG TAB PO PRN (16:29)
[2017-02-08] MEDS: RIVAROXABAN 20 MG TAB PO SCH (20:16)
[2017-02-09] VITALS (7 sets, daily range): BP systolic 110–126; BP diastolic 60–75; PULSE 95–111; TEMP 36.5–37.1; O2SAT 91–100
[2017-02-09] MEDS: MoRPHine SULFATE 2 MG/ML CARP IV PRN ×4 (00:26→21:56)
[2017-02-09] MEDS: LEVALBUTEROL/IPRATROPIUM NEB INH SCH ×4 (02:15→19:08)
[2017-02-09] MEDS: METHYLPREDNISOLONE IV 40 MG in SYRINGE 0 ML IV SCH ×3 (05:49→21:55)
[2017-02-09 06:51] LABS: HEMATOCRIT 30.2 % (37-47); MEAN CELL VOLUME 96.2 fL (80-100); MEAN CORPUSCULAR HEMOGLOBIN 30.3 pg (25-34); MEAN CORPUSCULAR HGB CONC 31.5 g/dl (32-36); MEAN PLATELET VOLUME 10.7 fL (7.4-10.4); PLATELET COUNT 242 K/uL (130-400); RED BLOOD COUNT 3.14 M/uL (4.2-5.4); WHITE BLOOD COUNT 9.15 K/uL (4.8-10.8)
[2017-02-09] MEDS: ACETYLCYSTEINE 20% INHAL SOLN ***DISPENSED BY RESP. INH SCH ×2 (07:06→19:08)
[2017-02-09 07:23] LABS: CALCIUM 9.8 mg/dl (8.5-10.1); CREATININE 1.05 mg/dl (0.60-1.20); POTASSIUM 4.6 mmol/L (3.5-5.1)
--- NOTE | 2017-02-09 08:39 | Family Medicine Progress Note ---
Progress Note Date of Service Feb 09, 2017. Subjective Pt evaluation today including: conversation w/ patient, conversation w/ family , physical exam, chart review, lab review, review of studies Initially saw patient legislative director on rounds, then again shortly before noon with family. Patient says she's breathing okay on her baseline home oxygen levels (around 2.5 to 3 liters NC). Continues to have some right-sided chest discomfort, unchanged overall in character, but improved with tylenol or morphine. She denies any acute breathing difficulties overnight, or any other acute concerns. Family has questions about possible hospice options. Constitutional: No fever, No chills Respiratory: + shortness of breath (only her baseline if not on oxygen), No cough Cardiovascular: + chest pain (right lateral, denies midline), No edema Abdomen: No pain, No nausea, No vomiting Medications Current Inpatient Medications Medications (Trade) Dose Ordered Sig/Khalida Route Start Time Stop Time Status Last Admin Dose Admin Al Hydrox/Mg Hydrox/Simethicone (Maalox Max Susp) 15 ml Q4H PRN PO 02/07/17 15:15 03/09/17 15:14 Magnesium Hydroxide (Milk Of Magnesia Susp) 30 ml Q12H PRN PO 02/07/17 15:15 03/09/17 15:14 Ondansetron HCl (Zofran Inj) 4 mg Q6H PRN IV 02/07/17 15:15 03/09/17 15:14 Polyethylene (Miralax Powder Packet) 17 gm DAILY PRN PO 02/07/17 15:15 03/09/17 15:14 Miscellaneous (Xopenex/ Atrovent Neb) 1 ea Q6R INH 02/07/17 21:00 03/09/17 20:59 02/09/17 07:06 1 EA Budesonide/ Formoterol Fumarate (Symbicort 160/ 4.5 Inh) 2 puffs BID INH 02/07/17 21:00 03/09/17 20:59 02/08/17 20:15 2 PUFFS Citalopram Hydrobromide (celeXA TAB) 20 mg DAILY PO 02/08/17 09:00 03/10/17 08:59 02/08/17 07:45 20 MG Multivitamins (Multivitamin Tab) 1 tab DAILY PO 02/08/17 09:00 03/10/17 08:59 02/08/17 07:45 1 TAB Chlordiazepoxide (Librium Cap) 25 mg DAILY PO 02/08/17 09:00 03/10/17 08:59 02/08/17 07:52 25 MG Acetylcysteine (Acetylcysteine Cap) 600 mg BID PO 02/07/17 21:00 03/09/17 20:59 02/08/17 20:16 600 MG Acetylcysteine (Mucomyst 20% Inh Soln) 3 ml BIDR INH 02/07/17 20:00 03/09/17 19:59 02/09/17 07:06 3 ML Rivaroxaban (Xarelto Tab) 20 mg DAILY@2100 PO 02/08/17 21:00 03/10/17 20:59 02/08/17 20:16 20 MG Levofloxacin (Levaquin Tab) 750 mg Q48H PO 02/08/17 09:45 02/10/17 09:46 02/08/17 10:26 750 MG Morphine Sulfate (MoRPHine SULFATE INJ) 1 mg Q4H PRN IV 02/08/17 11:15 02/22/17 11:14 02/09/17 05:14 1 MG Methylprednisolone Sodium Succinate 40 mg/Syringe 0.64 ml @ 1.5 mls/min Q8H IV 02/08/17 14:00 03/10/17 13:59 02/09/17 05:49 1.5 MLS/MIN Acetaminophen (Tylenol Tab) 1,000 mg Q8H PRN PO 02/08/17 13:00 03/09/17 15:14 02/08/17 16:29 1,000 MG Enteral Nutritional Formula (Boost) 1 can TIDM PO 02/09/17 12:00 03/11/17 11:59 UNV Objective Vital Signs Date Time Temp Pulse Resp B/P (MAP) Pulse Ox O2 Delivery O2 Flow Rate FiO2 02/09/17 07:49 36.5 98 20 110/60 (77) 98 Nasal Cannula 2.0 02/09/17 00:30 Nasal Cannula 3.0 02/08/17 23:55 37.0 103 20 93/51 (65) 93 Nasal Cannula 2.0 02/08/17 16:00 93 Nasal Cannula 2.5 02/08/17 14:39 36.9 92 18 96/59 (71) 93 Nasal Cannula 2.0 02/08/17 13:57 94 16 88 Nasal Cannula 1.0 02/08/17 12:05 36.6 87 18 97/57 (70) 94 Nasal Cannula 2.0 02/08/17 11:46 37.0 88 9 96 3.0 02/08/17 11:00 88 9 94/59 (71) 96 Nasal Cannula 3.0 02/08/17 10:00 87 9 95/55 (68) 98 02/08/17 09:01 85 6 91/54 (66) 97 Nasal Cannula 02/08/17 09:00 91 12 92 Physical Exam General Appearance: no apparent distress (sitting in chair, gesturing with her hands without difficulty, speaking relatively comfortably) Respiratory/Chest: lungs clear, no respiratory distress, + decreased breath sounds (bilaterally, with prolonged expiratory phase) Cardiovascular: regular rate, rhythm, no murmur Abdomen: non tender, soft, no organomegaly Extremities: no pedal edema, no calf tenderness Neurologic/Psychiatric: alert, oriented x 3 Laboratory Results 02/09/17 05:52 02/09/17 05:52 Test 02/08/17 11:05 02/09/17 05:52 Influenza Type A (RT-PCR) Neg for Influ A (NEG) Influenza Type B (RT-PCR) Neg for Influ B (NEG) Red Blood Count 3.14 M/uL (4.2-5.4) Mean Corpuscular Volume 96.2 fL (80-100) Mean Corpuscular Hemoglobin 30.3 pg (25-34) Mean Corpuscular Hemoglobin Concent 31.5 g/dl (32-36) RDW Standard Deviation 43.3 fL (36.4-46.3) RDW Coefficient of Variation 12.4 % (11.5-14.5) Mean Platelet Volume 10.7 fL (7.4-10.4) Anion Gap 2.0 mmol/L (3-11) Est Creatinine Clear Calc Drug Dose 29.1 ml/min Estimated GFR () 61.0 Estimated GFR (Non- 52.6 BUN/Creatinine Ratio 24.0 (10-20) Calcium Level 9.8 mg/dl (8.5-10.1) Assessment and Plan Ms. Wyatt is a 71 yo female with a PMH of severe COPD, recent PE () on Xarelto, chronic respiratory failure, hematuria and renal stone issues, and depression / anxiety admitted on 07Feb2017 for worsening shortness of breath and right chest pain. Acute on chronic respiratory failure (COPD exacerbation), history of Type III pulm HTN - Regularly on 2.5L NC at home (but often refuses to wear her CPAP at night). Follows Dr. Rabago as outpt. Admitted with SpO2 around 74%. - pCXR notes no acute change but baseline severe emphysematous change. - BCx x 2 pending (no growth as of ). - sputum cultures ordered. On levaquin as well as discussed below. - was transferred to ICU due to shallow breathing and hypoxia, requiring a couple hours of BiPAP therapy, and noted improvement with the same. Transitioned quickly back to oxygen via NC. Source suspected related to morphine given for her chest pain. Planned transfer back to medicine floor on . - Pulmonology onboard, please see their rec's. Attempted consolidation: --- Goal SaO2 88-92%. --- Started azithromycin 250 daily, consider tri-weekly dosing upon discharge. --- Started mucomyst 600 mg PO BID. Also on same INH BID as inpatient. --- Continuing home Symbicort 2 puffs BID, Spiriva 1 puff daily. --- At home was on prednisone 5 mg daily. Started on solumedrol IV q8h as inpatient, initially 80 mg then decreased to 40 mg. --- Judicious pain med use due to CO2 retention. Narcan prn if too somnolent. Use of IS while alert. Right-sided chest pain - Trended troponin q8h x 3, all negative. EKG showed no ischemic changes. pCXR showed no acute changes (as above). - Suspect pain is MSK in origin. At home she is on Tramadol 50 mg PO q4h prn pain. Held as inpatient due to some ? somnolence initially. Tylenol prn here. - 07Jan2017 TTE: LVEF 65-70%. No clear evidence of tamponade. No regional wall motion abnormalities. Compared with prior study on 12/16/2013: Pericardial effusion has increased minimally. PH now mild to moderate. Recent PE diagnosed 07Jan2017 -Continue Xarelto 20 daily. Hematuria / Decreased Drug CrCl - Recent [facility] admission -18Jan2017 for hematuria s/p starting Xarelto for her dx of PE. CT noted staghorn stones & left ureter lesion, cystoscopy was deferred due to hematuria. Urology had recommended referral for PCNL of staghorn stones at [facility]. [facility] recommends remaining on anticoagulation for six months before they would consider intervening. - 08Dec UCx pending (no growth as of ). - 09Dec started on Levaquin 750 mg PO q48h (renal dosing) in case of UTI (has elevated procalcitonin). - 09Dec present Cr 1.02 but Cr Clr for medications is 33.3, thought to be low due to patient's low body weight. Labs / Misc: - 08Dec nasal MRSA negative. 09Dec influenza PCR negative. - Pulmonary nodules: See on prior CTA. Outpt follow up for same. - Hyperparathyroidism: Outpt follow up. - Depression/anxiety: Continue Librium 25 mg PO daily, Celexa 20 mg PO daily Code status: DO NOT RESUSCITATE (DNR) DVT prophylaxis: Xarelto + CRISTIAN hose + SCDs Disposition: Pending. Reportedly lives alone, retired, . - PT consulted, appreciate recs - OT consulted, appreciate recs - 10Dec had lengthy discussion with patient and family about hospice care regarding her chronic pulmonary issues. Both patient and family seem amenable to hospice in hopes of avoiding future hospitalizations for same. Consulted palliative care. Resident Physician Supervision Note: I was present with Dr. Rapp during the history and exam. I discussed the case with the resident and agree with the findings and plan as documented in the note. Any exceptions or clarifications are listed here: 71-year-old female with severe COPD, and multiple hospitalizations over the last 12 months. Her family has expressed interest in home hospice; and after discussion regarding the benefits of home hospice, the patient herself is receptive to the idea as well. Based on review of the patient's history, including her recent hospitalizations, she is appropriate for hospice based on pulmonary guidelines. Documented By: Fran Lemos Resident Tracking Resident Involvement: Resident Care Provided Care Provided: Adult Hospital Medicine (inpt rounds)
[2017-02-09] MEDS: CHLORDIAZEPOXIDE 25 MG CAP PO SCH (08:40)
[2017-02-09] MEDS: BUDESONIDE/FORMOTEROL FUMARATE 160/4.5 60 PUFFS/INHALER INH SCH ×2 (08:40→19:14)
[2017-02-09] MEDS: CITALOPRAM 20 MG TAB PO SCH (08:41)
[2017-02-09] MEDS: MULTIVITAMIN TAB PO SCH (08:41)
[2017-02-09] MEDS: ACETYLCYSTEINE 600 MG CAP PO SCH ×2 (08:41→19:59)
[2017-02-09] MEDS ORDERED: BOOST PLUS VANILLA PO SCH ×2 (12:00)
[2017-02-09] MEDS ORDERED: BOOST VANILLA PO SCH ×2 (12:00)
[2017-02-09] MEDS: BOOST PLUS VANILLA PO SCH ×4 (12:24→17:00)
--- NOTE | 2017-02-09 13:08 | Pulmonology Progress Note ---
Pulmonary Progress Note Date of Service Feb 09, 2017. Attending Dr. Ny Subjective Patient seen and examined at bedside. She states that she sit and didn't sleep well overnight. She denies any shortness of breath other than normal. She denies any cough or chest pain. Right-sided back and chest pain adequately controlled at this time. She is upset that her nasal cannula was taken down to 2 L/m. I explained that we would taper it if she is saturating well. Refuses BiPAP overnight. Daughter at bedside and requested consult for palliative/hospice care. Objective Vital signs reviewed. Afebrile overnight, saturating between 92-98% on 2-3 L nasal cannula. Gen.: Awake alert oriented 3, no acute respiratory distress. Speaking in full sentences. CVS: S1-S2, rate and rhythm Lungs: Barrel chested, decreased breath sounds bilaterally Abdomen: Soft, nontender, nondistended, bowel sounds positive Extremities: No cyanosis, no clubbing, no peripheral edema noted bilaterally in lower extremities. Labs reviewed. Influenza PCR negative Pro-calcitonin 6.9 Blood cultures negative to date. Medications reviewed. Imaging reviewed. Assessment & Plan Acute on chronic hypoxic hypercapnic respiratory failure Very severe COPD with exacerbation h/o recent pulmonary embolus on Xarelto Type III pulmonary hypertension Anxiety/depression Pulmonary nodule Hematuria Ms. Wyatt has acute on chronic hypoxic hypercapnic respiratory failure with COPD exacerbation. Patient is more alert today and denies any respiratory complaints. She is saturating well on 2 L nasal cannula. She is improving from a respiratory standpoint. Daughter is at bedside and requested palliative/hospice care evaluation. Dr. Lemos at bedside to discuss this option with them. Recommend Continue with supplemental oxygenation to keep a SaO2 between 88-92%. Continue with BiPAP when necessary and at night. Continue with Levaquin for possible pneumonia. She will likely benefit from triweekly azithromycin 250 mg upon discharge, Friday schedule Continue with mucomyst 600 mg BID to her current regimen We should switch over to prednisone 60 mg daily and taper over the next 2 weeks Continue with Spiriva. Continue with Symbicort. Continue with other nebulizers q4-6. Continue with mucomyst inhalation 3 ml BID, flutter valve for aggressive pulmonary toilet. Follow-up sputum cultures. Continue Xarelto for PE/DVT treatment. Hematuria management per primary team. Continue with pain meds, however be judicious as she is a CO2 retainer. Continue with incentive spirometry. Pulmonary nodule--stable, she should have interval follow up with Dr. Rabago. I will sign off the case at this time. She can follow with Dr. rabago in 1-2 weeks posthospital discharge. Data Medications: Current Inpatient Medications Medications (Trade) Dose Ordered Sig/Khalida Route Start Time Stop Time Status Last Admin Dose Admin Al Hydrox/Mg Hydrox/Simethicone (Maalox Max Susp) 15 ml Q4H PRN PO 02/07/17 15:15 03/09/17 15:14 Magnesium Hydroxide (Milk Of Magnesia Susp) 30 ml Q12H PRN PO 02/07/17 15:15 03/09/17 15:14 Ondansetron HCl (Zofran Inj) 4 mg Q6H PRN IV 02/07/17 15:15 03/09/17 15:14 Polyethylene (Miralax Powder Packet) 17 gm DAILY PRN PO 02/07/17 15:15 03/09/17 15:14 Miscellaneous (Xopenex/ Atrovent Neb) 1 ea Q6R INH 02/07/17 21:00 03/09/17 20:59 02/09/17 07:06 1 EA Budesonide/ Formoterol Fumarate (Symbicort 160/ 4.5 Inh) 2 puffs BID INH 02/07/17 21:00 03/09/17 20:59 02/09/17 08:40 2 PUFFS Citalopram Hydrobromide (celeXA TAB) 20 mg DAILY PO 02/08/17 09:00 03/10/17 08:59 02/09/17 08:41 20 MG Multivitamins (Multivitamin Tab) 1 tab DAILY PO 02/08/17 09:00 03/10/17 08:59 02/09/17 08:41 1 TAB Chlordiazepoxide (Librium Cap) 25 mg DAILY PO 02/08/17 09:00 03/10/17 08:59 02/09/17 08:40 25 MG Acetylcysteine (Acetylcysteine Cap) 600 mg BID PO 02/07/17 21:00 03/09/17 20:59 02/09/17 08:41 600 MG Acetylcysteine (Mucomyst 20% Inh Soln) 3 ml BIDR INH 02/07/17 20:00 1/7/18 19:59 02/09/17 07:06 3 ML Rivaroxaban (Xarelto Tab) 20 mg DAILY@2100 PO 02/08/17 21:00 03/10/17 20:59 02/08/17 20:16 20 MG Levofloxacin (Levaquin Tab) 750 mg Q48H PO 02/08/17 09:45 02/10/17 09:46 02/08/17 10:26 750 MG Morphine Sulfate (MoRPHine SULFATE INJ) 1 mg Q4H PRN IV 02/08/17 11:15 02/22/17 11:14 02/09/17 11:31 1 MG Methylprednisolone Sodium Succinate 40 mg/Syringe 0.64 ml @ 1.5 mls/min Q8H IV 02/08/17 14:00 03/10/17 13:59 02/09/17 05:49 1.5 MLS/MIN Acetaminophen (Tylenol Tab) 1,000 mg Q8H PRN PO 02/08/17 13:00 03/09/17 15:14 02/08/17 16:29 1,000 MG Enteral Nutritional Formula (Boost Plus Vanilla) 1 can TIDM PO 02/09/17 12:00 03/11/17 11:59 02/09/17 12:24 1 CAN Vital Signs: Date Time Temp Pulse Resp B/P (MAP) Pulse Ox O2 Delivery O2 Flow Rate FiO2 02/09/17 08:00 98 Nasal Cannula 2.0 40 02/09/17 07:49 36.5 98 20 110/60 (77) 98 Nasal Cannula 2.0 02/09/17 00:30 Nasal Cannula 3.0 02/08/17 23:55 37.0 103 20 93/51 (65) 93 Nasal Cannula 2.0 02/08/17 16:00 93 Nasal Cannula 2.5 02/08/17 14:39 36.9 92 18 96/59 (71) 93 Nasal Cannula 2.0 02/08/17 13:57 94 16 88 Nasal Cannula 1.0 Laboratory Results: Last 24 Hours Test 02/09/17 05:52 White Blood Count 9.15 K/uL Red Blood Count 3.14 M/uL Hemoglobin 9.5 g/dL Hematocrit 30.2 % Mean Corpuscular Volume 96.2 fL Mean Corpuscular Hemoglobin 30.3 pg Mean Corpuscular Hemoglobin Concent 31.5 g/dl RDW Standard Deviation 43.3 fL RDW Coefficient of Variation 12.4 % Platelet Count 242 K/uL Mean Platelet Volume 10.7 fL Sodium Level 133 mmol/L Potassium Level 4.6 mmol/L Chloride Level 97 mmol/L Carbon Dioxide Level 35 mmol/L Anion Gap 2.0 mmol/L Blood Urea Nitrogen 25 mg/dl Creatinine 1.05 mg/dl Est Creatinine Clear Calc Drug Dose 29.1 ml/min Estimated GFR () 61.0 Estimated GFR (Non- 52.6 BUN/Creatinine Ratio 24.0 Random Glucose 100 mg/dl Calcium Level 9.8 mg/dl
[2017-02-09] MEDS: RIVAROXABAN 20 MG TAB PO SCH (20:01)
[2017-02-09] MEDS ORDERED: CHLORDIAZEPOXIDE 25 MG CAP PO ONE (21:15)
[2017-02-10] VITALS (8 sets, daily range): BP systolic 97–121; BP diastolic 62–78; PULSE 88–103; TEMP 36.4–37; O2SAT 94–96
[2017-02-10] MEDS: LEVALBUTEROL/IPRATROPIUM NEB INH SCH ×2 (01:46→07:28)
[2017-02-10] MEDS: METHYLPREDNISOLONE IV 40 MG in SYRINGE 0 ML IV SCH ×3 (05:38→21:26)
[2017-02-10 06:50] LABS: HEMATOCRIT 29.5 % (37-47); MEAN CELL VOLUME 94.9 fL (80-100); MEAN CORPUSCULAR HEMOGLOBIN 30.5 pg (25-34); MEAN CORPUSCULAR HGB CONC 32.2 g/dl (32-36); MEAN PLATELET VOLUME 10.3 fL (7.4-10.4); PLATELET COUNT 253 K/uL (130-400); RED BLOOD COUNT 3.11 M/uL (4.2-5.4); WHITE BLOOD COUNT 8.09 K/uL (4.8-10.8)
[2017-02-10 07:16] LABS: CALCIUM 9.7 mg/dl (8.5-10.1); CREATININE 0.89 mg/dl (0.60-1.20); POTASSIUM 4.3 mmol/L (3.5-5.1)
[2017-02-10] MEDS: ACETYLCYSTEINE 20% INHAL SOLN ***DISPENSED BY RESP. INH SCH (07:28)
[2017-02-10] MEDS: CITALOPRAM 20 MG TAB PO SCH (07:55)
[2017-02-10] MEDS: BUDESONIDE/FORMOTEROL FUMARATE 160/4.5 60 PUFFS/INHALER INH SCH ×2 (07:55→19:49)
[2017-02-10] MEDS: LEVOFLOXACIN 750 MG TAB PO SCH (07:56)
[2017-02-10] MEDS: MULTIVITAMIN TAB PO SCH (07:56)
[2017-02-10] MEDS: ACETYLCYSTEINE 600 MG CAP PO SCH (07:56)
[2017-02-10] MEDS: BOOST PLUS VANILLA PO SCH ×2 (07:57)
[2017-02-10] MEDS: CHLORDIAZEPOXIDE 25 MG CAP PO SCH ×2 (07:58→19:49)
[2017-02-10] MEDS: IPRATROPIUM BROMIDE NEB SOLN 0.02% 2.5 ML VIAL INH SCH ×3 (08:53→19:35)
[2017-02-10] MEDS: LEVALBUTEROL 1.25MG/0.5ML NEB INH SCH ×3 (08:54→19:35)
[2017-02-10] MEDS: MoRPHine SULFATE 2 MG/ML CARP IV PRN ×2 (11:01→19:54)
[2017-02-10] MEDS ORDERED: COUGH DROP (SUGAR FREE) LOZ 24 LOZ/1 BOX ONE (11:05)
[2017-02-10] MEDS ORDERED: NURSING DECISION MEDICATION ORDER SCH (11:15)
[2017-02-10] MEDS ORDERED: COUGH DROP (SUGAR FREE) LOZ 24 LOZ/1 BOX PO PRN (11:15)
[2017-02-10] MEDS ORDERED: BOOST VANILLA PO SCH ×2 (14:00)
[2017-02-10] MEDS ORDERED: NURSING VERBAL MED ORDER ONE (14:00)
--- NOTE | 2017-02-10 15:10 | Family Medicine Progress Note ---
Progress Note Date of Service Feb 10, 2017. Subjective Pt evaluation today including: conversation w/ patient, physical exam, chart review, lab review, conversation w/ insurance consultant Pain: No pain reported PO Intake: Tolerating PO intake Voiding: no voiding problems Ms. Wyatt reports she feels well today. She denies any shortness of breath at rest and states she would like to have her catheter removed. Her family and her decided that she would be discharged on home hospice. Constitutional: No fever, No chills Respiratory: No cough, No sputum, No wheezing, No dyspnea at rest, No hemoptysis Cardiovascular: No chest pain, No edema Abdomen: No pain, No nausea, No vomiting, No diarrhea Female : + hematuria All Other Systems: Reviewed and Negative Medications Current Inpatient Medications Medications (Trade) Dose Ordered Sig/Khalida Route Start Time Stop Time Status Last Admin Dose Admin Al Hydrox/Mg Hydrox/Simethicone (Maalox Max Susp) 15 ml Q4H PRN PO 02/07/17 15:15 03/09/17 15:14 Magnesium Hydroxide (Milk Of Magnesia Susp) 30 ml Q12H PRN PO 02/07/17 15:15 03/09/17 15:14 Ondansetron HCl (Zofran Inj) 4 mg Q6H PRN IV 02/07/17 15:15 03/09/17 15:14 Polyethylene (Miralax Powder Packet) 17 gm DAILY PRN PO 02/07/17 15:15 03/09/17 15:14 Budesonide/ Formoterol Fumarate (Symbicort 160/ 4.5 Inh) 2 puffs BID INH 02/07/17 21:00 03/09/17 20:59 02/10/17 07:55 2 PUFFS Citalopram Hydrobromide (celeXA TAB) 20 mg DAILY PO 02/08/17 09:00 03/10/17 08:59 02/10/17 07:55 20 MG Multivitamins (Multivitamin Tab) 1 tab DAILY PO 02/08/17 09:00 03/10/17 08:59 02/10/17 07:56 1 TAB Acetylcysteine (Acetylcysteine Cap) 600 mg BID PO 02/07/17 21:00 03/09/17 20:59 02/10/17 07:56 600 MG Acetylcysteine (Mucomyst 20% Inh Soln) 3 ml BIDR INH 02/07/17 20:00 03/09/17 19:59 02/10/17 07:28 3 ML Rivaroxaban (Xarelto Tab) 20 mg DAILY@2100 PO 02/08/17 21:00 03/10/17 20:59 02/09/17 20:01 20 MG Morphine Sulfate (MoRPHine SULFATE INJ) 1 mg Q4H PRN IV 02/08/17 11:15 02/22/17 11:14 02/10/17 11:01 1 MG Methylprednisolone Sodium Succinate 40 mg/Syringe 0.64 ml @ 1.5 mls/min Q8H IV 02/08/17 14:00 03/10/17 13:59 02/10/17 13:44 1.5 MLS/MIN Acetaminophen (Tylenol Tab) 1,000 mg Q8H PRN PO 02/08/17 13:00 03/09/17 15:14 02/08/17 16:29 1,000 MG Chlordiazepoxide (Librium Cap) 25 mg BID PO 02/10/17 08:00 03/10/17 08:59 02/10/17 07:58 25 MG Ipratropium [place] (Atrovent 0.02% 0.5MG/2.5ML Neb) 0.5 mg Q6R INH 02/10/17 09:00 03/12/17 08:59 02/10/17 14:14 0.5 MG Levalbuterol (Xopenex 1.25MG/ 0.5ML Neb) 1.25 mg Q6R INH 02/10/17 09:00 03/12/17 08:59 02/10/17 14:14 1.25 MG Menthol (Nice Patricia) 1 patricia PRN PRN PO 02/10/17 11:15 03/12/17 11:14 Enteral Nutritional Formula (Boost) 1 can TID PO 02/10/17 20:00 03/12/17 19:59 Objective Vital Signs Date Time Temp Pulse Resp B/P (MAP) Pulse Ox O2 Delivery O2 Flow Rate FiO2 02/10/17 14:17 99 16 94 Nasal Cannula 2.0 02/10/17 08:10 Nasal Cannula 2.5 02/10/17 07:35 36.5 88 18 116/73 (87) 96 Nasal Cannula 2.0 02/10/17 07:30 90 16 96 Nasal Cannula 2.0 02/10/17 00:56 37.0 102 20 118/69 (85) 96 Nasal Cannula 3.0 02/10/17 00:00 Nasal Cannula 2.0 02/09/17 20:00 Nasal Cannula 2.0 02/09/17 19:09 111 16 91 Nasal Cannula 2.5 02/09/17 16:00 100 Nasal Cannula 2.0 40 02/09/17 15:04 37.1 105 20 126/75 (92) 100 Physical Exam General Appearance: WD/WN, no apparent distress Respiratory/Chest: chest non-tender, normal breath sounds, no respiratory distress, no accessory muscle use, + decreased breath sounds Cardiovascular: regular rate, rhythm, no edema, no gallop, no JVD, no murmur Abdomen: normal bowel sounds, non tender, soft, no organomegaly, no pulsatile mass Laboratory Results Last 24 Hours Test 02/10/17 06:13 White Blood Count 8.09 K/uL Red Blood Count 3.11 M/uL Hemoglobin 9.5 g/dL Hematocrit 29.5 % Mean Corpuscular Volume 94.9 fL Mean Corpuscular Hemoglobin 30.5 pg Mean Corpuscular Hemoglobin Concent 32.2 g/dl RDW Standard Deviation 42.9 fL RDW Coefficient of Variation 12.5 % Platelet Count 253 K/uL Mean Platelet Volume 10.3 fL Sodium Level 134 mmol/L Potassium Level 4.3 mmol/L Chloride Level 98 mmol/L Carbon Dioxide Level 33 mmol/L Anion Gap 3.0 mmol/L Blood Urea Nitrogen 26 mg/dl Creatinine 0.89 mg/dl Est Creatinine Clear Calc Drug Dose 34.4 ml/min Estimated GFR () 74.5 Estimated GFR (Non- 64.3 BUN/Creatinine Ratio 29.0 Random Glucose 113 mg/dl Calcium Level 9.7 mg/dl Assessment and Plan Ms. Wyatt is a 71 year old female with a PMH of severe COPD, recent PE ( ) on Xarelto, chronic respiratory failure, hematuria secondary to kidney stones , and depression / anxiety admitted on [id number] for worsening shortness of breath and right chest pain. Acute on chronic respiratory failure (COPD exacerbation) with pulmonary HTN - Regularly on 2.5L NC at home, currently at 96% on 2L - Follows Dr. Rabago as outpt. - Pulmonology onboard: --- Goal SaO2 88-92%. --- Levaquin 750mg q48h given renal function --- Consider tri-weekly azithromycin 250 on discharge. --- Continuing home Symbicort 2 puffs BID, Spiriva 1 puff daily. --- At home was on prednisone 5 mg daily. Currently on 40mg q8h of IV methylprednisone, will transition to 60mg prednisone tomorrow and discharge on taper . - d/c mucomyst oral and inhaled as per respiratory assessment Right-sided chest pain - Trended troponin q8h x 3, all negative. EKG showed no ischemic changes. pCXR showed no acute changes (as above). - Suspect pain is MSK in origin. Tylenol prn - 07Jan2017 TTE: LVEF 65-70%. No clear evidence of tamponade. No regional wall motion abnormalities. Compared with prior study on 12/16/2013: Pericardial effusion has increased minimally. PH now mild to moderate. Recent PE diagnosed 07Jan2017 - Continue Xarelto 20 daily. Hematuria - Recent [facility] admission -18Jan2017 for hematuria s/p starting Xarelto for her dx of PE. CT noted staghorn stones & left ureter lesion, cystoscopy was deferred due to hematuria. Urology had recommended referral for PCNL of staghorn stones at [facility]. [facility] recommends remaining on anticoagulation for six months before they would consider intervening. - removed nelson catheter today in preparation for d/c Pulmonary nodules - Seen on prior CTA. Outpt follow up for same. Hyperparathyroidism - Outpatient follow up. Depression/anxiety - Continue Librium 25 mg PO daily, Celexa 20 mg PO daily Code status: DO NOT RESUSCITATE (DNR) DVT prophylaxis: Xarelto + CRISTIAN hose + SCDs Disposition: d/c tomorrow with home hospice Resident Tracking Resident Involvement: Resident Care Provided Care Provided: Adult Hospital Medicine Reviewed: Pt Seen/Exam by Me History feeling exhausted this morning breathing at baseline upset about not getting boost Constitutional: denies: fever Respiratory: positive: short of breath Cardiovascular: denies chest pain General Appearance: no apparent distress (sitting in chair) Respiratory: decreased breath sounds Cardiovascular: regular rate, rhythm Neurologic/Psychiatric: alert, oriented x 3 Skin Characteristics: warm/dry Assessment/Plan Resident Physician Supervision Note: I independently interviewed and examined the patient and verified the carrasco history and physical, reviewed labs and image studies, discussed the case with the resident Dr. Saucedo and agree with the findings and care plan.
[2017-02-10] MEDS: RIVAROXABAN 20 MG TAB PO SCH (19:50)
[2017-02-10] MEDS: BOOST VANILLA PO SCH ×2 (19:50)
[2017-02-10] MEDS: ACETAMINOPHEN 500 MG TAB PO PRN (19:50)
[2017-02-11] MEDS: IPRATROPIUM BROMIDE NEB SOLN 0.02% 2.5 ML VIAL INH SCH ×3 (02:20→14:22)
[2017-02-11] MEDS: LEVALBUTEROL 1.25MG/0.5ML NEB INH SCH ×3 (02:21→14:21)
[2017-02-11 06:23] LABS: HEMATOCRIT 29.9 % (37-47); MEAN CELL VOLUME 94.6 fL (80-100); MEAN CORPUSCULAR HEMOGLOBIN 30.7 pg (25-34); MEAN CORPUSCULAR HGB CONC 32.4 g/dl (32-36); MEAN PLATELET VOLUME 10.3 fL (7.4-10.4); PLATELET COUNT 247 K/uL (130-400); RED BLOOD COUNT 3.16 M/uL (4.2-5.4); WHITE BLOOD COUNT 8.06 K/uL (4.8-10.8)
[2017-02-11 06:42] LABS: CALCIUM 9.6 mg/dl (8.5-10.1); CREATININE 0.92 mg/dl (0.60-1.20); POTASSIUM 4.2 mmol/L (3.5-5.1)
[2017-02-11 07:05] VITALS: BP 103/70; PULSE 80; TEMP 36.6; O2SAT 97
[2017-02-11 07:26] VITALS: PULSE 73; O2SAT 98
[2017-02-11] MEDS: CHLORDIAZEPOXIDE 25 MG CAP PO SCH ×2 (08:03→17:43)
[2017-02-11] MEDS: CITALOPRAM 20 MG TAB PO SCH (08:04)
[2017-02-11] MEDS: MULTIVITAMIN TAB PO SCH (08:04)
[2017-02-11] MEDS: BUDESONIDE/FORMOTEROL FUMARATE 160/4.5 60 PUFFS/INHALER INH SCH (08:06)
[2017-02-11] MEDS: BOOST VANILLA PO SCH ×4 (08:06→14:27)
[2017-02-11] MEDS ORDERED: OXYCODONE/ACETAMINOPHEN 5-325 TAB PO ONE (10:00)
--- NOTE | 2017-02-11 10:50 | Discharge Summary ---
Discharge Summary Date of Service Feb 11, 2017. Discharge Summary Admission Date: Feb 07, 2017 at 15:13 Discharge Date: Feb 11, 2017 Discharge Disposition: Home with services Principal Diagnosis: COPD Exacerbation Problems/Secondary Diagnoses: (1) COPD exacerbation Status: Chronic 2) Hematuria secondary to an ureteral stone 3) Recent PE in January 4) Depression/Anxiety 5) Pulmonary nodules 6) Hyperparathyroidism Immunizations: Have You Had Influenza Vaccine: Unknown History of Tetanus Vaccine?: Unknown History of Pneumococcal: Unknown History of Hepatitis B Vaccine: Unknown Procedures: CHEST ONE VIEW PORTABLE CLINICAL HISTORY: EVALUATE RESPIRATORY DISTRESS.DYSPNEA COMPARISON STUDY: 03/29/2016 FINDINGS: Unchanged exam. Diffuse emphysematous change with hyperinflation of the left hemithorax. Mild shift of the cardiomediastinal silhouette to the right which is chronic in this patient. Slight prominence of pulmonary vasculature on the right unchanged in the prior exam. Diaphragms are smooth. Very slight chronic blunting right lateral gastric angle. IMPRESSION: Severe emphysematous change. No acute process. No change in the prior exam. THORACIC SPINE 3 VIEWS ROUTINE CLINICAL HISTORY: Thoracic spine and rib pain COMPARISON STUDY: CT scan of chest dated 02/03/2017 FINDINGS: There is severe pulmonary emphysema. The bones are osteopenic. Since the prior study, the patient has developed a moderate T7 compression fracture demonstrating in excess of 50% loss in height. There is bilateral nephrolithiasis. IMPRESSION: 1. Acute/subacute T7 compression fracture demonstrating excess of 50% loss in height 2. Severe emphysema 3. Bilateral nephrolithiasis RIBS BILATERAL MIN 3 VIEWS CLINICAL HISTORY: 71 years-old Female presenting with bilateral rib pain. TECHNIQUE: Frontal and oblique views of the bilateral ribs were obtained. COMPARISON: Chest x-ray from 02/07/2017. FINDINGS: Rightward shift of the cardiac mediastinal silhouette, unchanged. Cardiac silhouette normal in size. Lungs persistently hyperinflated, left greater than right with pronounced radiolucency and heterogeneity of the left lung greater than the right lung consistent with known underlying emphysema. Hyperinflation also reflects this. No new focal infiltrate. No large effusion or pneumothorax. No displaced rib fracture. Upper abdomen normal. IMPRESSION: No displaced rib fracture. Emphysema. Consultations: Pulmonary - Dr. Ny Medication Reconciliation New Medications: Azithromycin (Zithromax) 250 Mg Tab 250 MG PO 3XWK, #30 TAB 2 Refills Hydrocodone/Acetaminophen 5MG/325MG (Carlotta 5MG/325MG) Tab 1 TABLET PO Q6 PRN for Pain, #20 TAB PRN PAIN Levofloxacin (Levaquin) 750 Mg Tab 750 MG PO DIRECTED for 1 Day, #1 TAB Take 1 tablet on 02/12/2017. Prednisone (Prednisone Tab) 20 Mg Tab 20 MG PO UD for 12 Days, #20 TAB Take 3 tablets for 3 days, then 2 tablets for 3 days, then 1 tablet for 3 days, then 1/2 a tablet for 3 days and then stop. Lidocaine (Lidocaine) 1 Patch Tdsy 1 PATCH TD QAM for 30 Days, #30 PATCH 2 Refills Continued Medications: Albuterol Hfa (Ventolin Hfa) 200 Puffs/18268 Mcg Aers 2 PUFFS INH Q6H PRN for SOB/Wheezing, #1 INHALER Budesonide/Formoterol Fumarate (Symbicort 160/4.5 Inhaler ) Aero 2 PUFFS INH BID, INHALER Chlordiazepoxide (Chlordiazepoxide HCl) 25 Mg Cap 25 MG PO DAILY Citalopram Hydrobromide (Celexa) 20 Mg Tab 20 MG PO DAILY, TAB Home O2 Therapy (Oxygen) Gas 2.5 LITERS NA CONTINOUS Ipratropium-Albuterol (Duoneb) 3 Ml Nebu 3 ML INH Q4H PRN for SOB/Wheezing, INHA Multiple Vitamin (Multivitamin) 1 Tab Tab 1 TAB PO DAILY, TAB Rivaroxaban (Xarelto) 20 Mg Tab 1 TAB PO DAILY for 30 Days, #30 TAB 11 Refills Tiotropium [place] (Spiriva Handihaler) 30 Puff/540 Mcg Aerp 1 PUFF INH DAILY Discontinued Medications: Prednisone (Prednisone) 5 Mg Tab 5 MG PO DAILY, TAB Discharge Exam Ms. Wyatt reports her breathing is fine today. She denies shortness of breath, n /v, but states her back is in a considerable amount of pain. She states her back pain began several weeks ago and has been worsening as she has come off of the IV morphine. Review of Systems: Constitutional: No fever, No chills Respiratory: No cough, No sputum Cardiovascular: No chest pain Physical Exam: General Appearance: WD/WN, no apparent distress, + pertinent finding (pain in back with leaning forward) Respiratory/Chest: lungs clear, normal breath sounds, no respiratory distress, no accessory muscle use, + decreased breath sounds, + pertinent finding (pain on light touch palpation of lower back, worst in midline) Cardiovascular: regular rate, rhythm, no edema, no gallop, no JVD, no murmur , normal peripheral pulses Abdomen / GI: normal bowel sounds, non tender, soft, no organomegaly, no pulsatile mass Hospital Course Ms. 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 Acute on chronic respiratory failure (COPD exacerbation) pulmonary HTN - Started on IV antibiotics - finished course for levaquin. Pulmonology consulted. Was put on mucomyst nebs and oral mucomyst along with other nebs. Continued oxygen - Per Pulmonology recommendations * --- Tri-weekly azithromycin 250mg. * --- Continue home Symbicort 2 puffs BID, Spiriva 1 puff daily. * --- Prednisone taper for 12 days, beginning at 60mg. Back Pain mid thoracic likely due to C7 compression fracture - Developed back pain around the time of discharge - started on lidocaine patches and Carlotta for pain management on discharge - fracture likely sec to long standing steroid use Recent PE diagnosed 07Jan2017 - Continue Xarelto Hematuria - likely secondary to staghorn stones & left ureter lesion. Urology had recommended referral for PCNL of staghorn stones at [facility]. [facility] recommends remaining on anticoagulation for six months before they would consider intervening. Pulmonary nodules - Seen on prior CTA Hyperparathyroidism - Outpatient follow up if necessary Depression/anxiety - Continue Librium 25 mg PO daily, Celexa 20 mg PO daily The decision was made to discharge the patient as home hospice. Both the patient and family agreed on this given her multiple admissions for COPD exacerbations. Total Time Spent: Greater than 30 minutes This includes examination of the patient, discharge planning, medication reconciliation, and communication with other providers. Discharge Instructions Please refer to the electronic Patient Visit Report (Discharge Instructions) for additional information. Additional Copies To Bessie Corbin M.D. Resident Tracking Resident Involvement: Resident Care Provided Care Provided: Adult Hospital Medicine Reviewed: Pt Seen/Exam by Me History having lot of back pain. breathing back to baseline Constitutional: denies: fever Respiratory: negative: short of breath Cardiovascular: denies chest pain General Appearance: no apparent distress Respiratory: lungs clear, no respiratory distress Cardiovascular: regular rate, rhythm Gastrointestinal: soft Neurologic/Psychiatric: alert, oriented x 3 Skin Characteristics: warm/dry Assessment/Plan Resident Physician Supervision Note: I independently interviewed and examined the patient and verified the carrasco history and physical, reviewed labs and image studies, discussed the case with the resident Dr. Saucedo and agree with the findings and care plan. Time spent in discharge 40 min
[2017-02-11] MEDS ORDERED: LEVO1TAB35 PO ×2 (13:19→17:07)
[2017-02-11] MEDS ORDERED: AZIT250T PO ×2 (13:19→17:07)
[2017-02-11] MEDS ORDERED: PRED20TA2 PO ×2 (13:19→17:07)
--- NOTE | 2017-02-11 13:23 | DIAGNOSTIC IMAGING REPORT ---
THORACIC SPINE 3 VIEWS ROUTINE CLINICAL HISTORY: Thoracic spine and rib pain COMPARISON STUDY: CT scan of chest dated 02/03/2017 FINDINGS: There is severe pulmonary emphysema. The bones are osteopenic. Since the prior study, the patient has developed a moderate T7 compression fracture demonstrating in excess of 50% loss in height. There is bilateral nephrolithiasis. IMPRESSION: 1. Acute/subacute T7 compression fracture demonstrating excess of 50% loss in height 2. Severe emphysema 3. Bilateral nephrolithiasis Electronically signed by: Kanu Ayers M.D. 02/11/2017 1:22 PM Dictated Date/Time: 02/11/2017 1:19 PM
--- NOTE | 2017-02-11 13:24 | DIAGNOSTIC IMAGING REPORT ---
RIBS BILATERAL MIN 3 VIEWS CLINICAL HISTORY: 71 years-old Female presenting with bilateral rib pain. TECHNIQUE: Frontal and oblique views of the bilateral ribs were obtained. COMPARISON: Chest x-ray from 02/07/2017. FINDINGS: Rightward shift of the cardiac mediastinal silhouette, unchanged. Cardiac silhouette normal in size. Lungs persistently hyperinflated, left greater than right with pronounced radiolucency and heterogeneity of the left lung greater than the right lung consistent with known underlying emphysema. Hyperinflation also reflects this. No new focal infiltrate. No large effusion or pneumothorax. No displaced rib fracture. Upper abdomen normal. IMPRESSION: No displaced rib fracture. Emphysema. Electronically signed by: Emil Tovar M.D. 02/11/2017 1:23 PM Dictated Date/Time: 02/11/2017 1:19 PM
[2017-02-11] MEDS ORDERED: LDDP5 TD (14:08)
--- NOTE | 2017-02-11 14:14 | Discharge Instructions ---
Discharge Instructions Date of Service Feb 11, 2017. Admission Reason for Admission: Acute And Chronic Respiratory Failure, Copd Exacer Discharge Discharge Diagnosis / Problem: COPD Exacerbation Discharge Goals Goal(s): Decrease discomfort Activity Recommendations Activity Limitations: resume your previous activity . Instructions / Follow-Up Instructions / Follow-Up Ms. Wyatt, sarah were admitted to [facility] due to a COPD exacerbation. You were treated with antibiotics, steroids and breathing treatments to help improve your symptoms. We will be discharging you home on one more dose of Levaquin (an antibiotic) for you to take tomorrow, as well as 12 days of a tapering dose of steroids. You were also seen by the lung doctor who recommended that you continue with your inhalers and that you take azithromycin (another antibiotic) as a prophylaxis, three times a week, to help prevent further COPD exacerbations. While you were admitted, we also did an xray of your back, which unfortunately showed a T7 compression fracture. This does not require any intervention, but rather is managed by controlling the pain. We will be discharging you home with medications to help relieve your pain. Please continue your other home medications as prescribed. Current Hospital Diet Patient's current hospital diet: Regular Diet Discharge Diet Recommended Diet: Regular Diet Pending Studies Studies pending at discharge: no Medical Emergencies . Who to Call and When: Medical Emergencies: If at any time you feel your situation is an emergency, please call 911 immediately. . Non-Emergent Contact Non-Emergency issues call your: Primary Care Provider . . "Provider Documentation" section prepared by Gerry Saucedo. . VTE Core Measure Inpt VTE Proph given/why not?: Other Anticoagulation (Xarelto), TMarta Hair, SCD's
[2017-02-11 14:23] VITALS: PULSE 96; O2SAT 94
[2017-02-11] MEDS ORDERED: LIDODERM (LIDOCAINE) PATCH 5% TD SCH (14:30)
[2017-02-11 14:42] VITALS: BP 105/71; PULSE 99; TEMP 37.2; O2SAT 93
[2017-02-11 16:00] VITALS: O2SAT 93
[2017-02-11] MEDS ORDERED: HYDR-5688 PO ×2 (16:25→17:07)
[2017-02-11] MEDS: ACETAMINOPHEN 500 MG TAB PO PRN (17:44)
== END 2017-02-11 18:20 | disposition hospice, home (50) | DRG 189 ==
LOC: C.EDB 13:08 → C.MED 15:13 → ENRESERV 15:57 → C.MSICU 19:29 → ENRESERV 02-08 11:33 → C.4E 02-08 12:01
PROVIDERS: ADMIT Hospitalist; ATTEND Family Medicine
DX: J96.21 Acute and chronic respiratory failure with hypoxia (principal); J44.1 Chronic obstructive pulmonary disease with (acute) exacerbation; Z51.5 Encounter for palliative care; E87.2 Acidosis; N20.1 Calculus of ureter; M48.52XA Collapsed vertebra, not elsewhere classified, cervical region, initial encounter for fracture; Z87.891 Personal history of nicotine dependence; I27.20 Pulmonary hypertension, unspecified; F41.8 Other specified anxiety disorders; R07.89 Other chest pain; R91.8 Other nonspecific abnormal finding of lung field; E21.3 Hyperparathyroidism, unspecified; Z82.49 Family history of ischemic heart disease and other diseases of the circulatory system; Z88.2 Allergy status to sulfonamides; Z79.01 Long term (current) use of anticoagulants; Z86.711 Personal history of pulmonary embolism; Z99.81 Dependence on supplemental oxygen; Z66 Do not resuscitate